=== PATIENT | female | born 1955 | race Caucasian/White ===

== ENCOUNTER 2021-01-09 06:30 | Day surgery (SDC) | payer MEDICARE, SELFPAY ==
[2020-12-27 13:52] VITALS: BMI 30.2
--- NOTE | 2021-01-08 17:35 | P.PNAN_ITS ---
Anes - Eval Pre Procedure Procedure: Operation Date: 01/09/21 08:00 Proposed Procedures p Esophagogastroduodenoscopy - Spike Ortiz MD Date/Time: 01/08/21 17:35 Pre Op Diagnosis: dysphagia Patient Data Age: 65 Gender: F Height: 1.6 m Weight: 77.5 kg Allergies Allergy/AdvReac Type Severity Reaction Status Date / Time codeine Allergy Unknown Itching Verified 12/27/20 13:46 Home Medications Medication Instructions Recorded Confirmed Type simvastatin 20 mg tablet 20 mg PO DAILY #90 tablet 05/17/19 12/27/20 Rx aspirin [Adult Low Dose Aspirin] 81 mg PO DAILY 12/27/20 12/27/20 History metoprolol succinate 50 mg PO DAILY 12/27/20 12/27/20 History omega-3 fatty acids [Fish Oil] 1 cap PO DAILY 12/27/20 12/27/20 History progesterone micronized 100 mg PO QAM 12/27/20 12/27/20 History [Prometrium] Patient hx anesthesia problems: none Family hx anesthesia problems: none [facility] Past Medical History Medical History (Updated 01/08/21 @ 17:36 by Mason Murillo DO) GERD (gastroesophageal reflux disease) Hyperlipidemia Hypertension Osteoarthritis Surgical History Surgical History (Updated 01/08/21 @ 17:36 by Mason Murillo DO) History of Social History Social History Smoking status: Former smoker Second hand tobacco smoke exposure: Yes Drinks per week: 10 Living arrangements: alone Spiritual care concerns: No Exam Day of Procedure 01/08/21 17:35
[2021-01-09 07:02] VITALS: BP 189/81; PULSE 76; RESP 20; TEMP 36.2; O2SAT 99; BMI 30.4
[2021-01-09] MEDS: LACTATED RINGERS 1,000 ML 150 ML IV CONT (07:34)
--- NOTE | 2021-01-09 07:42 | WPDANESEPPF ---
Anes - Initial Pre Proc Eval Procedure: Operation Date: 01/09/21 08:00 Proposed Procedures p Esophagogastroduodenoscopy - Spike Ortiz MD Date/Time: 01/09/21 07:42 Surgeon: Spike Ortiz MD Pre Op Diagnosis: dysphagia Patient Data Age: 65 Gender: F Height: 1.6 m Weight: 78 kg Last Vital Signs Temp 36.2 C L 01/09/21 07:02 Pulse 76 01/09/21 07:02 Resp 20 01/09/21 07:02 BP 189/81 H 01/09/21 07:02 Pulse Ox 99 01/09/21 07:02 Allergies Allergy/AdvReac Type Severity Reaction Status Date / Time codeine Allergy Unknown Itching Verified 01/09/21 06:58 Home Medications Medication Instructions Recorded Confirmed Type simvastatin 20 mg tablet 20 mg PO DAILY #90 tablet 05/17/19 01/09/21 Rx aspirin [Adult Low Dose Aspirin] 81 mg PO DAILY 12/27/20 01/09/21 History metoprolol succinate 50 mg PO DAILY 12/27/20 12/27/20 History omega-3 fatty acids [Fish Oil] 1 cap PO DAILY 12/27/20 01/09/21 History progesterone micronized 100 mg PO QAM 12/27/20 01/09/21 History [Prometrium] Patient hx anesthesia problems: none Family hx anesthesia problems: none [facility] Past Medical History Medical History GERD (gastroesophageal reflux disease) Hyperlipidemia Hypertension Osteoarthritis Surgical History Surgical History History of Social History Social History Smoking status: Former smoker Second hand tobacco smoke exposure: Yes Drinks per week: 10 Living arrangements: alone Spiritual care concerns: No Anes - Eval Final PreProcedure Day of Procedure 01/09/21 07:42 Patient weight: obese Heart: regular rate and rhythm Lungs: clear to auscultation Airway: Mallampati scale class II Neurological: alert and oriented Last oral intake: >/= 8 hours ASA classification: II Emergent: no Anesthetic plan: proceed Anesthesia type and monitoring: general GIVS and standard monitoring Informed Consent: The patient's anesthetic plan and its attendant risks and benefits were discussed with the patient/family/POA. Questions were solicited and answers provided to the satisfaction of the patient/family/POA.
--- NOTE | 2021-01-09 07:59 | PM.HPGS ---
History of Present Illness History of Present Illness Consent: Risks, benefits, and alternatives have been discussed and questions answered. Patient agrees to proceed with procedure. Chief complaint: dysphagia Narrative: Mirta Reyes is a 65 year old female with intermittent dysphagia to solids, never had egd and she is not taking ppi Review of Systems Constitutional: Constitutional: Denies headache(s) and Denies weakness Eyes: Eyes: Denies blurry vision ENT: Reports Normal hearing present, Denies headache(s) and Denies neck pain Cardiovascular: Cardiovascular: Denies chest pain and Denies dyspnea Respiratory: Respiratory: Denies dyspnea Gastrointestinal: Gastrointestinal: Reports no additional gastrointestinal complaints Genitourinary: Genitourinary: Denies dysuria Musculoskeletal: Musculoskeletal: Denies neck pain Integumentary/Breasts: Skin/Breast: Denies dry skin Neurologic: Reports Normal hearing present, Denies headache(s) and Denies weakness Psychiatric: Psychiatric: Denies anxiety Endocrine: Endocrine: Denies change in body appearance Hematologic/Lymphatic: Hematologic/Lymphatic: Denies easy bleeding Allergic/Immunologic: Allergic/Immunologic: Denies urticaria PMFSH Past Medical History Medical History (Updated 01/09/21 @ 08:00 by Spike Ortiz MD) Dysphagia GERD (gastroesophageal reflux disease) Hyperlipidemia Hypertension Osteoarthritis Surgical History Surgical History History of Social History Social History Smoking status: Former smoker Second hand tobacco smoke exposure: Yes Drinks per week: 10 Living arrangements: alone Spiritual care concerns: No Meds Home Medications and Allergies Home Medications Medication Instructions Recorded Confirmed Type simvastatin 20 mg tablet 20 mg PO DAILY #90 tablet 05/17/19 01/09/21 Rx aspirin [Adult Low Dose Aspirin] 81 mg PO DAILY 12/27/20 01/09/21 History metoprolol succinate 50 mg PO DAILY 12/27/20 12/27/20 History omega-3 fatty acids [Fish Oil] 1 cap PO DAILY 12/27/20 01/09/21 History progesterone micronized 100 mg PO QAM 12/27/20 01/09/21 History [Prometrium] Allergies Allergy/AdvReac Type Severity Reaction Status Date / Time codeine Allergy Unknown Itching Verified 01/09/21 06:58 Vital Signs Vital Signs - 24 hr 01/09/21 07:02 Temperature 97.2 F L Pulse Rate 76 Respiratory Rate 20 Blood Pressure 189/81 H Pulse Oximetry 99 Exam Const: General: comfortable and no acute distress HENMT: General nose exam: Normal nares present Eyes: General: appearance normal, both eyes and all related structures Neck: Neck: no JVD Resp: Auscultation: clear to auscultation bilaterally Cardio: Rate: regular rate Rhythm: regular rhythm GI: Inspection: non-distended GI Palp: Yes Soft to palpation Skin: General skin exam: normal color Neuro: General: gait normal Speech: normal speech Extrem: General: normal to inspection Psych: Mental Status: mental status grossly normal Assessment and Plan Assessment and plan (1) Dysphagia: Code(s): R13.10 - Dysphagia, unspecified Status: Acute Assessment and Plan: egd
[2021-01-09 08:18] VITALS: BP 189/81; PULSE 63; RESP 15; O2SAT 95
[2021-01-09 08:28] VITALS: BP 136/68; PULSE 60; RESP 13; O2SAT 95
[2021-01-09 08:38] VITALS: BP 144/78; PULSE 62; RESP 15; O2SAT 95
== END 2021-01-09 08:46 | disposition home or self-care (01) ==
PROVIDERS: PCP Nurse Practitioner Adult Health; Visit Provider Internal Medicine Gastroenterology
PROC: 0DJ08ZZ Inspection of Upper Intestinal Tract, Via Natural or Artificial Opening Endoscopic (ICD-10-PCS; CPT 43235; principal; 2021-01-09 08:00)
DX: K22.2 Esophageal obstruction (principal); K21.00 Gastro-esophageal reflux disease with esophagitis, without bleeding; K44.9 Diaphragmatic hernia without obstruction or gangrene; K29.50 Unspecified chronic gastritis without bleeding; I10 Essential (primary) hypertension; E78.5 Hyperlipidemia, unspecified; M19.90 Unspecified osteoarthritis, unspecified site; Z79.82 Long term (current) use of aspirin; Z87.891 Personal history of nicotine dependence
CPT/HCPCS: 43239; 43249; 87081; 88305; C1726; J7120

== ENCOUNTER 2021-06-05 08:33 | Outpatient (CLI) | payer MEDICARE, SELFPAY ==
--- NOTE | ~2021-06-05 | CT_ITS ---
EXAMINATION: CT diagnostic chest w con EXAM DATE: 06/05/2021 09:10 INDICATION: Pulmonary nodule. TECHNIQUE: Spiral CT of the chest following intravenous injection of 75 mL Omnipaque 350. Axial, cor onal and sagittal images of the chest were reviewed. Coronal maximum intensity pixel images of chest reviewed. The dose-length product (DLP) for this examination was 202.25 mGy-cm. The exposure was t ailored according to patient size (auto mA exposure control), and iterative reconstruction (ASIR) was used as additional dose reduction technique. Correlation is made to chest x-ray from 2003. FINDINGS: There is a rounded right middle lobe nodule measuring 1.5 cm without spiculations. Central location would make percutaneous biopsy challenging. Assuming there are no recent prior studies at [facility] for comparison, PET/CT recommended for nodules this size. Portion of the segmental bronchus distal to this is occluded. Otherwise the airway is well aerated. There are no pleural or p ericardial effusions. There is no mediastinal, hilar or axillary lymphadenopathy. There is no p neumothorax. Heart normal in size. There is mild coronary arterial calcification, arterial sclero sis. 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 Mild to moderate splenic flexure colonic diverticulos is. There is T11 hemangioma. There are no osteoblastic or osteolytic lesions identified. IMPRESSION: 1. Right middle lobe 1.5 cm nodule without spiculations; recommend PET/CT for further evaluation. If that is not obtained, a 3 month follow-up chest CT without contrast. 2. Mild emphysema. 3. Moderate hiatal hernia. 4. Splenic, renal artery aneurysms. 5. Colonic diverticulosis. Reviewed, dictated and finalized at location A. [facility] IMPRESSION: 1. Right middle lobe 1.5 cm nodule without spiculations; recommend PET/CT for further evaluation. If that is not obtained, a 3 month follow-up chest CT witho ut contrast. 2. Mild emphysema. 3. Moderate hiatal hernia. 4. Splenic, renal artery aneurysms. 5. Colonic diverticulosis.
[2021-06-05 09:04] LABS: Estimated Glomerular Filt Rate > 60
== END 2021-06-05 08:34 | disposition home or self-care (01) ==
PROVIDERS: PCP Nurse Practitioner Adult Health; Visit Provider Nurse Practitioner Adult Health
DX: R91.1 Solitary pulmonary nodule (principal); J43.9 Emphysema, unspecified; K44.9 Diaphragmatic hernia without obstruction or gangrene; K57.30 Diverticulosis of large intestine without perforation or abscess without bleeding
CPT/HCPCS: 71260; Q9967

== ENCOUNTER → 2022-06-24 09:16 | Outpatient (CLI) | payer MEDICARE, SELFPAY ==
--- NOTE | ~2022-06-24 | CT_ITS ---
CT Angiogram Abdomen with contrast. History: Renal artery aneurysm. Spiral CT of the abdomen was performed after the administration of intravenous contrast. 100 cc of Om nipaque 350 was administered intravenously without complication. Dose reduction technique was used on this scan by utilizing automated exposure control and iterative reconstruction technique. The dose-l ength product (DLP) was 721.01 mGy-cm. Findings: Scans through the lung bases are clear. Large hiatal hernia noted. There is a 1.2 cm aneurysm, saccular, arising from the left renal artery (axial images 57-60). There is partial thrombosis within the aneurysm sac. The liver, spleen, pancreas, gallbladder, adrenals and left kidney are within normal limits. Simple r ight renal cysts noted. No evidence of aortic aneurysm. No lymphadenopathy is seen. Visualized bowel loops are unremarkable. No ascites. 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 Large hiatal hernia. Reviewed, dictated and finalized at [facility]. 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 Large hiatal hernia.
== END ==
PROVIDERS: PCP Family Medicine; Visit Provider Internal Medicine Cardiovascular Disease
DX: I72.2 Aneurysm of renal artery (principal); K44.9 Diaphragmatic hernia without obstruction or gangrene
CPT/HCPCS: 74175; Q9967

== ENCOUNTER 2022-07-08 01:13 | Day surgery (SDC) | payer MEDICARE, SELFPAY ==
[2022-06-24 13:52] VITALS: BMI 29.2
[2022-07-08 07:09] VITALS: BP 152/88; PULSE 80; RESP 16; TEMP 36.2; O2SAT 100; BMI 29.8
[2022-07-08] MEDS: LACTATED RINGERS 1,000 ML 150 ML IV CONT (07:21)
[2022-07-08 07:23] LABS: Glucose Point of Care 112 mg/dl (65-105)
--- NOTE | 2022-07-08 08:01 | WPDANESEPPF ---
Anes - Initial Pre Proc Eval Procedure: Operation Date: 07/08/22 08:30 Proposed Procedures p Screening Colonoscopy - Spike Ortiz MD Date/Time: 07/08/22 08:01 Surgeon: Spike Ortiz MD Pre Op Diagnosis: neoplasm screening Patient Data Age: 66 Gender: F Height: 1.6 m Weight: 76.4 kg Last Vital Signs Temp 97.1 F L 07/08/22 07:09 Pulse 80 07/08/22 07:09 Resp 16 07/08/22 07:09 BP 152/88 H 07/08/22 07:09 Pulse Ox 100 07/08/22 07:09 O2 Del Method Room Air 07/08/22 07:09 Allergies Allergy/AdvReac Type Severity Reaction Status Date / Time codeine AdvReac Unknown Itching Verified 07/08/22 07:08 Home Medications Medication Instructions Recorded Confirmed Type aspirin 81 mg tablet 81 mg PO DAILY 12/27/20 07/08/22 History metoprolol succinate 50 mg 50 mg PO DAILY 12/27/20 07/08/22 History tablet,extended release 24 hr progesterone micronized 100 mg 100 mg PO QAM 21 days #63 caps 09/27/21 07/08/22 Rx capsule calcium 600 mg capsule 600 mg PO DAILY 06/24/22 07/08/22 History diclofenac sodium 75 mg 75 mg PO DAILY 06/24/22 07/08/22 History tablet,delayed release famotidine 20 mg tablet 20 mg PO DAILY 06/24/22 07/08/22 History glucosamine-chondroitin 250 mg-200 2 tablet PO TID 06/24/22 07/08/22 History mg tablet (Osteo Bi-Flex) ibuprofen-diphenhydramine citrate 1 cap PO HS 06/24/22 07/08/22 History 200 mg-38 mg tablet (Ibuprofen PM) losartan 50 mg-hydrochlorothiazide 1 tablet PO DAILY 06/24/22 07/08/22 History 12.5 mg tablet metformin 500 mg tablet,extended 500 mg PO DAILY 06/24/22 07/08/22 History release 24 hr multivitamin 1 tablet PO DAILY 06/24/22 07/08/22 History simvastatin 40 mg tablet 40 mg PO DAILY 06/24/22 07/08/22 History Laboratory Tests 07/08/22 07:19 POC Capillary Glucose 112 mg/dl H mg/dl (65-105) Patient hx anesthesia problems: none Family hx anesthesia problems: none Results Review: All pre-operative results and documents have been reviewed as part of the pre-operative evaluation. [facility] Past Medical History Medical History (Updated 06/25/21 @ 09:32 by Yamilka Lockett MA) Colon cancer screening Dysphagia Esophageal ring GERD (gastroesophageal reflux disease) Hyperlipidemia Hypertension Osteoarthritis Surgical History Surgical History History of Social History Social History Years smoked: 20 Smoking status: Former smoker Tobacco type: cigarettes Second hand tobacco smoke exposure: Yes Alcohol intake: current Drinks per week: 7 Substance use type: does not use Living arrangements: with family Spiritual care concerns: No Anes - Eval Final PreProcedure Day of Procedure 07/08/22 08:01 Patient weight: obese Heart: regular rate and rhythm Lungs: clear to auscultation Airway: Mallampati scale class III Neurological: alert and oriented Last oral intake: >/= 8 hours ASA classification: III Emergent: no Anesthetic plan: proceed Anesthesia type and monitoring: general GIVS and standard monitoring Results Review: All pre-operative results and documents have been reviewed as part of the pre-operative evaluation. Informed Consent: The patient's anesthetic plan and its attendant risks and benefits were discussed with the patient/family/POA. Questions were solicited and answers provided to the satisfaction of the patient/family/POA.
--- NOTE | 2022-07-08 08:13 | PM.HPGS ---
History of Present Illness History of Present Illness Consent: Risks, benefits, and alternatives have been discussed and questions answered. Patient agrees to proceed with procedure. Chief complaint: neoplasm screening Narrative: Mirta Reyes is a 66 year old female here for screening colonoscopy, last one more than 5 years ago and she has history of polyp Review of Systems Constitutional: Constitutional: Denies headache(s) and Denies weakness Eyes: Eyes: Denies blurry vision ENT: Reports Normal hearing present, Denies headache(s) and Denies neck pain Cardiovascular: Cardiovascular: Denies chest pain and Denies dyspnea Respiratory: Respiratory: Denies dyspnea Gastrointestinal: Gastrointestinal: Reports no additional gastrointestinal complaints Genitourinary: Genitourinary: Denies dysuria Musculoskeletal: Musculoskeletal: Denies neck pain Integumentary/Breasts: Skin/Breast: Denies dry skin Neurologic: Reports Normal hearing present, Denies headache(s) and Denies weakness Psychiatric: Psychiatric: Denies anxiety Endocrine: Endocrine: Denies change in body appearance Hematologic/Lymphatic: Hematologic/Lymphatic: Denies easy bleeding Allergic/Immunologic: Allergic/Immunologic: Denies urticaria PMF Past Medical History Medical History (Updated 06/25/21 @ 09:32 by Yamilka Lockett MA) Colon cancer screening Dysphagia Esophageal ring GERD (gastroesophageal reflux disease) Hyperlipidemia Hypertension Osteoarthritis Surgical History Surgical History History of Social History Social History Years smoked: 20 Smoking status: Former smoker Tobacco type: cigarettes Second hand tobacco smoke exposure: Yes Alcohol intake: current Drinks per week: 7 Substance use type: does not use Living arrangements: with family Spiritual care concerns: No Meds Home Medications and Allergies Home Medications Medication Instructions Recorded Confirmed Type aspirin 81 mg tablet 81 mg PO DAILY 12/27/20 07/08/22 History metoprolol succinate 50 mg 50 mg PO DAILY 12/27/20 07/08/22 History tablet,extended release 24 hr progesterone micronized 100 mg 100 mg PO QAM 21 days #63 caps 09/27/21 07/08/22 Rx capsule calcium 600 mg capsule 600 mg PO DAILY 06/24/22 07/08/22 History diclofenac sodium 75 mg 75 mg PO DAILY 06/24/22 07/08/22 History tablet,delayed release famotidine 20 mg tablet 20 mg PO DAILY 06/24/22 07/08/22 History glucosamine-chondroitin 250 mg-200 2 tablet PO TID 06/24/22 07/08/22 History mg tablet (Osteo Bi-Flex) ibuprofen-diphenhydramine citrate 1 cap PO HS 06/24/22 07/08/22 History 200 mg-38 mg tablet (Ibuprofen PM) losartan 50 mg-hydrochlorothiazide 1 tablet PO DAILY 06/24/22 07/08/22 History 12.5 mg tablet metformin 500 mg tablet,extended 500 mg PO DAILY 06/24/22 07/08/22 History release 24 hr multivitamin 1 tablet PO DAILY 06/24/22 07/08/22 History simvastatin 40 mg tablet 40 mg PO DAILY 06/24/22 07/08/22 History Allergies Allergy/AdvReac Type Severity Reaction Status Date / Time codeine AdvReac Unknown Itching Verified 07/08/22 07:08 Vital Signs Vital Signs - 24 hr 07/08/22 07:09 Temperature 97.1 F L Pulse Rate 80 Respiratory Rate 16 Blood Pressure 152/88 H Pulse Oximetry 100 Oxygen Delivery Room Air Exam Const: General: comfortable and no acute distress HENMT: Face/Nose/Sinus: Normal nares present Eyes: General: appearance normal, both eyes and all related structures Neck: Neck: no JVD Resp: Auscultation: clear to auscultation bilaterally Cardio: Rate: regular rate Rhythm: regular rhythm GI: Inspection: non-distended GI Palp: Yes Soft to palpation Skin: General skin exam: normal color Neuro: General: gait normal Speech: normal speech Extrem: General: normal to inspection Psych: Men
[2022-07-08 08:34] VITALS: BP 115/65; PULSE 63; RESP 22; O2SAT 91
[2022-07-08 08:44] VITALS: BP 131/94; PULSE 61; RESP 19; O2SAT 94
[2022-07-08 08:52] VITALS: BP 120/101; PULSE 58; RESP 14; O2SAT 98
== END 2022-07-08 08:59 | disposition home or self-care (01) ==
PROVIDERS: PCP Family Medicine; Visit Provider Internal Medicine Gastroenterology
PROC: 0DJD8ZZ Inspection of Lower Intestinal Tract, Via Natural or Artificial Opening Endoscopic (ICD-10-PCS; CPT 45378; principal; 2022-07-08 08:30)
DX: Z12.11 Encounter for screening for malignant neoplasm of colon (principal); D12.3 Benign neoplasm of transverse colon; K57.30 Diverticulosis of large intestine without perforation or abscess without bleeding; K64.8 Other hemorrhoids; K64.4 Residual hemorrhoidal skin tags; I10 Essential (primary) hypertension; E78.5 Hyperlipidemia, unspecified; K21.9 Gastro-esophageal reflux disease without esophagitis; Z79.84 Long term (current) use of oral hypoglycemic drugs; Z79.82 Long term (current) use of aspirin; Z87.891 Personal history of nicotine dependence; E66.9 Obesity, unspecified; Z68.29 Body mass index [BMI] 29.0-29.9, adult
CPT/HCPCS: 45385; 82948; 88305; J2704; J7120

== ENCOUNTER 2023-12-21 14:55 | Outpatient (CLI) | payer MEDICARE, SELFPAY ==
--- NOTE | ~2023-12-21 | XR_ITS ---
XR chest 2V 12/21/2023 15:13 Indication: Cough Procedure: 2 view chest Comparison: 05/24/2004 Findings: Right basilar atelectasis/scarring. Large hiatal hernia. Heart size normal. No focal pneumo jeanmarie, pleural effusion, edema or pneumothorax Impression: 1: Right basilar atelectasis/scarring. 2: Large hiatal hernia. Reviewed, dictated and finalized at location B. Impression: 1: Right basilar atelectasis/scarring. 2: Large hiatal hernia.
== END 2023-12-21 14:56 | disposition home or self-care (01) ==
PROVIDERS: PCP Nurse Practitioner Adult Health; Visit Provider Nurse Practitioner Adult Health
DX: R91.8 Other nonspecific abnormal finding of lung field (principal); K44.9 Diaphragmatic hernia without obstruction or gangrene
CPT/HCPCS: 71046

== ENCOUNTER 2023-12-26 10:00 | Outpatient (CLI) | payer MEDICARE, SELFPAY ==
--- NOTE | ~2023-12-26 | CT_ITS ---
EXAMINATION:CT diagnostic chest wo con DATE: 12/26/2023 10:31 INDICATION: Diaphragmatic hernia without obstruction. Chronic cough. TECHNIQUE: Computed tomography (CT) of the chest was performed without intravenous contrast. Automate d exposure control and iterative reconstruction technique were employed. The dose-length product (DLP ) was 154.42 mGy-cm. COMPARISON: Chest CT 06/05/2021 FINDINGS: There is mild scarring at the lung apices. There is mild atelectasis bilaterally. There is a 16 mm nodule in right middle lobe containing fat, consistent with a hamartoma, stable from 06/05/2021 . There is a stable 4 mm nodule in left lower lobe, likely benign. No pleural effusion. The heart siz e is normal. No pericardial effusion. There are coronary artery calcifications. There is a large slid ing hiatal hernia. 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 There is severe mi dthoracic spondylosis. There is a hemangioma in T11 vertebral body. IMPRESSION: 1. Large sliding hiatal hernia. Reviewed, dictated and finalized at location A.
== END 2023-12-26 10:01 | disposition home or self-care (01) ==
LOC: ANHIMG 10:01
PROVIDERS: PCP Nurse Practitioner Adult Health; Visit Provider Nurse Practitioner Adult Health
DX: R05.3 Chronic cough (principal); K44.9 Diaphragmatic hernia without obstruction or gangrene
CPT/HCPCS: 71250

== ENCOUNTER 2024-08-10 12:43 | Outpatient (CLI) | payer MEDICARE, SELFPAY ==
--- NOTE | ~2024-08-10 | US_ITS ---
US pelvic complete w TV Ordering provider: Serjio Shi MD History: . R10.2 - Pelvic and perineal pain . Comparison: None. Technique: Transabdominal and endovaginal ultrasound of the pelvis (Doppler ultrasound interrogation techniques used as needed for this exam.) FINDINGS: CERVIX: Normal. UTERUS: Measures 7.2x 4.9x 3.9 cm in length which is within normal limits and is anteverted. 2.3 cm endometrial calcification is seen suggestive of fibroid versus wall calcifications. ENDOMETRIUM: Normal in thickness measuring 13 mm. No endometrial masses, cysts or fluid. CUL DE SAC: No free fluid. RIGHT OVARY: Not seen. LEFT OVARY: Not seen. ADNEXA: Normal. No mass. IMPRESSION: Thickened endometrium. Further evaluation advised. Calcifications which may indicate fibroid versus m yometrial calcification. Nonvisualized ovaries. Reviewed, dictated and finalized at location A. IMPRESSION: Thickened endometrium. Further evaluation advised. Calcifications which may ind icate fibroid versus myometrial calcification. Nonvisualized ovaries.
== END 2024-08-10 12:44 | disposition home or self-care (01) ==
LOC: GOSHIMG 12:43
PROVIDERS: PCP Family Medicine; Visit Provider Obstetrics & Gynecology
DX: R93.89 Abnormal findings on diagnostic imaging of other specified body structures (principal); N85.8 Other specified noninflammatory disorders of uterus; R10.2 Pelvic and perineal pain
CPT/HCPCS: 76830; 76856

== ENCOUNTER 2024-08-15 09:16 | Outpatient (CLI) | payer MEDICARE, SELFPAY ==
[2024-08-15 09:44] LABS: Basophils Percent Auto 0.6 % (0.2-1.2); Eosinophils Absolute Auto 0.1 K/mm3 (0-0.3); Eosinophils Percent Auto 1.3 % (0-4.4); Immature Granulocyte Absolute 0.03 K/mm3 (0.00-0.031); Immature Granulocyte Percent A 0.6 % (0-0.5); Lymphocytes Absolute Auto 1.28 K/mm3 (0.9-3.2); Lymphocytes Percent Auto 24.4 % (18.3-44.2); Mean Corpuscular HGB Conc 33.3 g/dl (32-36); Mean Corpuscular Hemoglobin 28.9 pg (26-34); Mean Corpuscular Volume 86.8 fl (80-100); Mean Platelet Volume 9.1 fl (7.4-10.4); Monocytes Absolute Auto 0.5 K/mm3 (0.1-0.6); Monocytes Percent Auto 8.8 % (2.6-8.5); Neutrophils Absolute Auto 3.4 K/mm3 (1.3-6.7); Neutrophils Percent Auto 64.3 % (45.5-73.1); Platelet Count Result 295 k/mm3 (150-375); Red Blood Count 4.84 M/mm3 (4.2-5.4); Red Cell Distribution Width 13.9 % (11.5-14.5); White Blood Count 5.2 K/mm3 (4.5-10.0)
[2024-08-15 10:03] LABS: Alanine Aminotransferase 26 U/L (6-35); Albumin Level 4.8 g/dL (3.5-5.1); Alkaline Phosphatase 70 U/L (38-126); Anion Gap 11 mmol/L (4-12); Aspartate Amino Transferase 21 U/L (14-36); Bilirubin,Total 0.7 mg/dL (0.2-1.3); Blood Urea Nitrogen 18 mg/dL (7-17); Calcium 9.9 mg/dL (8.4-10.2); Carbon Dioxide 29 mmol/L (22-30); Chloride 99 mmol/L (98-107); Cholesterol 165 mg/dL (0-200); Estimated Glomerular Filt Rate > 60; Glucose 98 mg/dL (65-110); HDL Direct 46 mg/dL; Potassium 3.9 mmol/L (3.4-5.0); Sodium 139 mmol/L (137-145); Triglycerides 183 mg/dL (<150)
--- OUTSIDE RECORDS SUMMARY | 2024-08-15 10:06 | XMS_ITS | Referral Summary ---
Author Organization [facility] [employer] Address [address] [place] [address] Care Team Providers Care Ranch Hand Supervisor Name Role Phone Justin Dior CARRINGTON-PULP ROLLER Primary Care Provider + Source Comments [facility],non-owned Affiliates and Associated Physician Practices is amultiple site organization consisting of ambulatory clinics and hospital sitesin [place], [place], [place] and [place]. This disclosure is being madepursuant to the Care Everywhere program and may not contain all information available regarding this patient. Last updated 18.[facility] [employer] Allergies Active Allergy Reactions Criticality Noted Date Comments Codeine 03/29/2008 Atorvastatin Calcium Myalgias 12/25/2008 Medications * Be aware that medications may not be up to date on this document. Alwaysverify current medications with the patient. Medication Sig Dispensed Refills Start Date End Date Status simvastatin (ZOCOR) 20 MG tabletIndications:H yperlipidemia Take 1 Tab by mouth at bedtime. 30 Tab 0 04/16/2011 Active METOPROLOL SUCCINATE ER PO Active Estradiol (EVAMIST TD) Active albuterol HFA (PROAIR HFA) 108 (90 BASE) MCG/ACT inhalerIndications: Acute bronchitis, unspecified organism Inhale 2 Puffs by mouth every 4 hours as needed for Shortness of Breath, Wheezing or Cough 1 Inhaler 1 04/10/2016 Active fluticasone propionate (FLONASE) 50 MCG/ACT nasal sprayIndications:Ac roopa bronchitis, unspecified organism Kendall 1 Kendall into each nostril 2 times daily 1 Bottle 04/10/2016 Active benzonatate (TESSALON) 100 MG capsuleIndications: Acute bronchitis, unspecified organism Take 1 Cap by mouth 3 times daily as needed for Cough 20 Cap 04/10/2016 Active Additional Information Patient not taking.Reported on 06/25/2016 Active Problems Problem Noted Date Diagnosed Date Hyperlipidemia 03/29/2008 Pulmonary nodule 03/29/2008 Immunizations Name Administration Dates Next Due INFLUENZA VACCINE, TRIV. (AF LURIA, FLUZONE TRIVALENT; 6MO+) (IIV3) 04/01/2010,04/07/2008 DT 12/13/2003 INFLUENZA VACCINE, QUADR. (F LUZONE; FLULAVAL; FLUARIX; AFLURIA QUADRIVALENT; 6MO+), 0.5 ML (IIV4) 04/03/2017 TDAP (7yrs+) 04/07/2008 Social History Tobacco Use Types Packs/Day Years Used Date Smoking Tobacco: Never Alcohol Use Standard Drinks/Week Comments Yes 5.8 (1 standard drink = 0.6 oz p ure alcohol) Sex and Gender Information Value Date Recorded Sex Assigned at Not on file Gender Identity Not on file Sexual Orientation Not on file Last Filed Vital Signs Vital Sign Reading Time Taken Comments Blood Pressure 114/78 06/25/2016 9:24 AM SUPERINTENDENT GENERATING PLANT Pulse 89 06/25/2016 9:24 AM SUPERINTENDENT GENERATING PLANT Temperature 37.4 C (99.4 F) 06/25/2016 9:24 AM SUPERINTENDENT GENERATING PLANT Respiratory Rate 16 06/25/2016 9:24 AM SUPERINTENDENT GENERATING PLANT Oxygen Saturation 96% 06/25/2016 9:24 AM SUPERINTENDENT GENERATING PLANT Inhaled Oxygen Concentration - - Weight 74.8 kg (165 lb) 06/25/2016 9:24 AM SUPERINTENDENT GENERATING PLANT Height 160 cm (5' 3 ) 06/25/2016 9:24 AM SUPERINTENDENT GENERATING PLANT Body Mass Index 29.23 06/25/2016 9:24 AM SUPERINTENDENT GENERATING PLANT Plan of Treatment Not on file Procedures Procedure Name Priority Date/Time Associated Diagnosis Comments GENERAL HEALTH PANEL Routine 04/05/2010 8:55 AM CDT Family history of early CAD Family history of diabetes mellitus (DM) from Last 3 Months or Most Recently Relevant to Health Maintenance Results * (ABNORMAL) GENERAL HEALTH PANEL (04/05/2010 8:55 AM CDT) Glucose 96 65 - 99 mg/dL [facility] ACCOUNT BILL BUN 18 5 - 26 mg/dL [facility] ACCOUNT BILL Creatinine 0.86 0.57 - 1.00 mg/dL [facility] ACCOUNT BILL eGFR by MDRD >59 >59 mL/min/1. 73 [facility] ACCOUNT BILL eGFR by MDRD >59 >59 mL/min/1. 73 [facility] ACCOUNT BILL Comment: Note: Persistent reduction for 3 months or more in an eGFR <60 mL/min/1.73 m2 defines CKD. Patients with eGFR values >/=60 mL/min/1.73 m2 may also have CKD if evidence of persistent proteinuria is present. Additional information may be found at [email or web address]. BUN/Creatinine Ratio 21 8 - 27 [facility] ACCOUNT BILL Sodium 140 135 - 145 mmol/L [facility] ACCOUNT BILL Potassium 4.1 3.5 - 5.2 mmol/L [facility] ACCOUNT BILL Chloride 102 97 - 108 mmol/L [facility] ACCOUNT BILL CO2 23 20 - 32 mmol/L [facility] ACCOUNT BILL Calcium 9.5 8.7 - 10.2 mg/dL [facility] ACCOUNT BILL Protein Total 7.0 6.0 - 8.5 g/dL [facility] ACCOUNT BILL Albumin 4.4 3.5 - 5.5 g/dL [facility] ACCOUNT BILL Globulin Total 2.6 1.5 - 4.5 g/dL [facility] ACCOUNT BILL Albumin/Globulin Ratio 1.7 1.1 - 2.5 [facility] ACCOUNT BILL Bilirubin Total 0.6 0.0 - 1.2 mg/dL [facility] ACCOUNT BILL Alkaline Phosphatase 59 25 - 150 IU/L [facility] ACCOUNT BILL AST 22 0 - 40 IU/L [facility] ACCOUNT BILL ALT 26 0 - 40 IU/L [facility] ACCOUNT BILL TSH 2.140 0.450 - 4.500 uIU/mL [facility] ACCOUNT BILL WBC 3.8(L) 4.0 - 10.5 x10E3/uL [facility] ACCOUNT BILL RBC 5.04 3.80 - 5.10 x10E6/uL [facility] ACCOUNT BILL Hemoglobin 14.5 11.5 - 15.0 g/dL [facility] ACCOUNT BILL Hematocrit 44.5(H) 34.0 - 44.0 % [facility] ACCOUNT BILL MCV 88 80 - 98 fL [facility] ACCOUNT BILL MCH 28.8 27.0 - 34.0 pg [facility] ACCOUNT BILL MCHC 32.6 32.0 - 36.0 g/dL [facility] ACCOUNT BILL RDW 12.8 11.7 - 15.0 % [facility] ACCOUNT BILL Platelet Count 280 140 - 415 x10E3/uL [facility] ACCOUNT BILL Granulocytes % 49 40 - 74 % [facility] ACCOUNT BILL Lymphocytes % 40 14 - 46 % [facility] Monocytes % 8 4 - 13 % [facility] ACCOUNT BILL Eosinophils % 2 0 - 7 % [facility] ACCOUNT B[facility] Basophils % 1 0 - 3 % [facility] ACCOUNT BILL Immature Cells CANCELED [facility] ACCOUNT BILL Comment:Result canceled by henok meehan ancillary Granulocytes Absolute 1.8 1.8 - 7.8 x10E3/uL [facility] ACCOUNT BILL Lymphocytes Absolute 1.5 0.7 - 4.5 x10E3/uL [facility] ACCOUNT BILL Monocytes Absolute 0.3 0.1 - 1.0 x10E3/uL [facility] ACCOUNT BILL Eosinophils Absolute 0.1 0.0 - 0.4 x10E3/uL [facility] ACCOUNT BILL Basophils Absolute 0.0 0.0 - 0.2 x10E3/uL [facility] ACCOUNT BILL Immature Granulocytes 0 0 - 1 % [facility] ACCOUNT BILL Immature Granulocytes Absolute 0.0 0.0 - 0.1 x10E3/uL [facility] ACCOUNT BILL nRBC CANCELED [facility] ACCOUNT BILL Comment:Result canceled by henok meehan ancillary Comment Hematology CANCELED [facility] ACCOUNT BILL Comment:Result canceled by henok meehan ancillary BLOOD SPECIMEN / Unknown 04/05/2010 8:55 AM CDT 04/05/2010 5:15 PM CDT Narrative Resulting Agency Comment [facility] [address] [phone] Blas Lyons MD LAB - CHEMISTRY OR DERABLES [facility] ACCOUNT BILL from Last 3 Months or Most Recently Relevant to Health Maintenance Care Teams Ranch Hand Supervisor Relationship Specialty Start Date End Date Dior Anderson APRN-PONCHO [address] [phone] PCP - General 01/28/21
--- OUTSIDE RECORDS SUMMARY | 2024-08-15 10:06 | XMS_ITS | Clinical Summary ---
Author Organization [facility] [employer] Address [address] [place] [address] Care Team Providers Care Tong Setter Name Role Phone Justin Dior CARRINGTON-SALES AND MANAGEMENT TRAINEE Primary Care Provider + Source Comments [facility],non-owned Affiliates and Associated Physician Practices is amultiple site organization consisting of ambulatory clinics and hospital sitesin [place], [place] and [place]. This disclosure is being madepursuant to the Care Everywhere program and may not contain all information available regarding this patient. Last updated 18.[facility] [employer] Allergies Active Allergy Reactions Criticality Noted Date [...] MCG/ACT nasal sprayIndications:Ac roopa bronchitis, unspecified organism Castlewood 1 [place] into each nostril 2 times daily 1 [...] 0.5 ML (IIV4) 04/03/2017 TDAP (7yrs+) 04/07/2008 Family History Medical History Relation Name Comments CAD (Coronary Artery Disease) Brother CAD (Coronary Artery Disease) Father age 52 Cancer Mother primary unknown Diabetes Sister Relation Name Status Comments Brother Father Mother Sister Social History Tobacco Use Types Packs/Day Years [...] Comments Blood Pressure 114/78 06/25/2016 9:24 AM LEAF FAT SCRAPER Pulse 89 06/25/2016 9:24 AM LEAF FAT SCRAPER Temperature 37.4 C (99.4 F) 06/25/2016 9:24 AM LEAF FAT SCRAPER Respiratory Rate 16 06/25/2016 9:24 AM LEAF FAT SCRAPER Oxygen Saturation 96% 06/25/2016 9:24 AM LEAF FAT SCRAPER Inhaled Oxygen Concentration - - Weight 74.8 kg (165 lb) 06/25/2016 9:24 AM LEAF FAT SCRAPER Height 160 cm (5' 3 ) 06/25/2016 9:24 AM LEAF FAT SCRAPER Body Mass Index 29.23 06/25/2016 9:24 AM LEAF FAT SCRAPER Plan of Treatment Health Maintenance Due Date Last Done Comments BONE DENSITY TESTING 1955 COLOGUARD (AGES 45-75) - COLON CA SCREENING 1955 COLONOSCOPY - COLON CA SCREENING 1955 CT COLONOGRAPHY - COLON CA SCREENING 1955 FIT - COLON CA SCREENING 1955 FLEX SIG - COLON CA SCREENING 1955 HEPATITIS C SCREENING 08/02/1973 PNEUMOCOCCAL VACCINE 50+ (1 of 1 - PCV) 08/06/2005 ZOSTER VACCINE (1 of 2) 08/06/2005 COLON MONITORING 04/01/2011 04/01/2006 (Pre viously completed) Colorectal Cancer Screening 04/01/2011 MAMMOGRAM 12/31/2011 12/30/2009, 12/30/2009 SCREENING FOR DIABETES 04/03/2017 0, 04/13/2009, 04/17/2008, Additional history exists DTAP/TDAP/TD VACCINES (3 - Td or Tdap) 04/07/2018 04/07/2008, 12/13/2003 COVID-19 VACCINE ( - 2023- season) 2024 INFLUENZA VACCINE (#1) 2024 7, 04/01/2010, 04/07/2008 DEPRESSION SCREENING 06/01/2024 MEDICARE AWV CALENDAR YEAR 2024 Respiratory Syncytial Virus (RSV) Vaccine Pt: or over 60 yrs (1 - 1-dose 75+ series) 08/06/2030 HEPATITIS B VACCINE Aged Out No longe r eligible based on patient's age to complete this topic HIB VACCINE Aged Out No longer eligi ble based on patient's age to complete this topic HPV VACCINE Aged Out No longer eligi ble based on patient's age to complete this topic MENINGOCOCCAL (Group B) VACCINE SHARED DECISION-MAKING Aged Out No longer eligible based on patient's age to complete this topic MENINGOCOCCAL GROUPS A/C/Y/W VACCINE Aged Out No longer eligible based on patient's age to complete this topic Procedures Procedure Name Priority Date/Time Associated Diagnosis [...] PM CDT Narrative Resulting Agency Comment [facility] [address] [phone] Blas Lyons MD LAB - CHEMISTRY OR DERABLES [facility] ACCOUNT BILL from Last 3 Months or Most Recently Relevant to Health Maintenance Care Teams Tong Setter Relationship Specialty Start Date End Date Dior Anderson APRN-PONCHO [address] [phone] PCP - General 01/28/21
--- OUTSIDE RECORDS SUMMARY | 2024-08-15 10:06 | XMS_ITS | Referral Summary ---
Author Organization [facility] Address [address] [place] [address] Phone Care Team Providers Care Pottery Decorator Name Role Phone Mark Page MD Primary Care Provider Encounters Date Type Department Care Team Description 08/05/2024 Telephone [facility] Primary Care at [address] [place] [phone] Mark Page MD Appointment 08/04/2024 10:00 AM LEAD GENERATION REPRESENTATIVE Office Visit [facility] Primary Care at [address] [place] [phone] Shyann Sullivan NP Establishing care with new doctor, encounter for (Primary Dx); Preventative health care; Primary hypertension; Hyperlipidemia, unspecified hyperlipidemia type; Prediabetes; Vitamin D deficiency; Personal history of tobacco use; Overweight with body mass index (BMI) of 28 to 28.9 in adult; Screening for thyroid disorder from Last 3 Months Allergies Active Allergy Reactions Criticality Noted Date Comments Atorvastatin Calcium Muscle pain Medium 12/25/2008 Codeine Other (See comments) 03/29/2008 Medications metoprolol XL (TOPROL-XL) 50 mg 24 hr tablet take 1 tablet by oral route every day 0 0 5 Active calcium carbonate-jasson min D3 (CALCIUM 500 + D) 1,250mg (500mg elemental) - 200 units per tablet 0 0 6 Active acyclovir (ZOVIRAX) 400 mg tablet take 1 tablet (400MG) by oral route every day 90 2 3 Active aspirin (ASPIRIN LOW DOSE) 81 mg tablet take 1 tablet by oral route every day 0 0 3 Active albuterol HFA (PROVENTIL HFA,VENTOLIN HFA,PROAIR HFA) 90 mcg/actuation inhaler Inhale 2 puffs every 4 (four) hours as needed [address] (VOLTAREN) 75 mg EC tablet Take 1 tablet (75 mg total) by mouth 2 (two) times a day 5 Active famotidine (PEPCID) 20 mg tablet Take 1 tablet (20 mg total) by mouth nightly at bedtime Active fluticasone propionate (FLONASE) 50 mcg/actuation nasal spray Administer 1 spray into affected nostril(s) 2 (two) times a day 6 Active losartan-hydro CHLOROthiazide (HYZAAR) 50-12.5 mg per tablet Take 1 tablet by mouth daily Active metFORMIN XR (GLUCOPHAGE XR) 500 mg 24 hr tablet Take 1 tablet (500 mg total) by mouth daily Active simethicone (MYLICON) 125 mg chewable tablet 1 tablet (125 mg total) 4 Active traZODone (DESYREL) 50 mg tablet Take 1 tablet (50 mg total) by mouth nightly Active simvastatin (ZOCOR) 20 mg tablet take 1 tablet by oral route every day in the evening 0 0 4 08/05/19 25 Discontinu ed(Therapy completed) progesterone (PROMETRIUM) 100 mg capsule TAKE 1 CAPSULE BY MOUTH DAYS 1-25 OF EACH MONTH 25 capsule 8 08/05/19 25 Discontinu ed(Therapy completed) benzonatate (TESSALON) 100 mg capsule Take 1 capsule (100 mg total) by mouth 3 (three) times a day as needed 6 08/05/19 25 Discontinu ed(Therapy completed) metFORMIN (GLUCOPHAGE) 500 mg tablet 0 03/06/20 25 Discontinu ed(Alterna te therapy) oseltamivir (TAMIFLU) 75 mg capsule Take 1 capsule (75 mg total) by mouth daily 08/05/19 25 Discontinu ed(Therapy completed) Active Problems Problem Noted Date Diagnosed Date Overweight with body mass in dex (BMI) of 28 to 28.9 in adult 08/05/2024 Assessment & Plan (08/05/2024 6:05 AM LEAD GENERATION REPRESENTATIVE): Wt Readings from Last 3 Encounters: 08/04/24 74 kg (163 lb 3.2 oz) 05/15/17 76.2 kg (168 lb) 05/13/16 77.1 kg (170 lb) Body mass index is 28.92 kg/m . -Stable, at goal of <30 bmi -Discussed recommendations for exercise at least 30 minutes moderate to vigorous exercise as tolerated most days of the week. (minimum 150 minutes weekly) -Discussed importance of well-balanced diet Preventative health care 08/04/2024 Assessment & Plan (08/05/2024 6:02 AM LEAD GENERATION REPRESENTATIVE): - New or chronic worsening conditions: no significant acute issues on this visit - Mental health: no significant psychiatric/mental health conditions affecting her day to day functioning - Dental health: Up to date with regular dental care and cleaning. Discussed importance of regular tooth brushing, flossing, and dental visits. - Nutrition: Stressed importance of moderation in sodium/caffeine intake, saturated fat and cholesterol, caloric balance, sufficient intake of fresh fruits, vegetables - Exercise: Stressed the importance of regular exercise - Immunizations: Age and sex appropriate immunizations reviewed and offered - Cervical Cancer screening: No longer indicated - Breast Cancer screening: Recommended, order placed - Colon cancer screening: Recommended, referral placed - Lung cancer screening: Not indicated at this time - Bone desnity/osteoporosis screening: Recommended, order placed - control: Postmenopausal Prediabetes 08/04/2024 Assessment & Plan (08/05/2024 6:01 AM LEAD GENERATION REPRESENTATIVE): -chronic, controlled -patient currently takes metformin 500 mg daily -reiterated importance of diabetic foot and eye exams -will recheck lab work -continue current treatment plan Vitamin D deficiency 08/04/2024 Assessment & Plan (08/05/2024 6:01 AM LEAD GENERATION REPRESENTATIVE): -chronic, controlled -patient currently takes vitamin D3 supplement -will recheck lab value -continue current treatment plan 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 Hypertension 06/14/2021 Assessment & Plan (08/05/2024 5:59 AM LEAD GENERATION REPRESENTATIVE): BP Readings from Last 3 Encounters: 08/04/24 135/85 05/15/17 130/72 05/13/16 120/86 -chronic, at goal of <140/90 -currently taking metoprolol 50 mg, losartan-hydrochlorothiazide 50-12.5 mg daily -patient reports checking blood pressure regularly at home -encourage patient to continue low-sodium diet -continue current treatment plan Lung mass 06/14/2021 Personal history of tobacco use 06/14/2021 Assessment & Plan (08/05/2024 6:04 AM LEAD GENERATION REPRESENTATIVE): Tobacco Use: Medium Risk (08/04/2024) Patient History Smoking Tobacco Use: Former Smokeless Tobacco Use: Never Passive Exposure: Not on file -stable, at goal -patient reports ongoing smoking cessation -patient educated on benefits of continued smoking cessation -continue current treatment plan -total time spent on tobacco cessation education 3 minutes Hyperlipidemia 03/29/2008 Assessment & Plan (08/05/2024 5:58 AM LEAD GENERATION REPRESENTATIVE): -chronic, controlled -Previously prescribed simvastatin 20 mg -Discussed importance of well-balanced diet -will recheck lab values -continue current treatment plan Pulmonary nodule 03/29/2008 Immunizations Immunization Administration Dates Next Due DT 12/13/2003 Influenza Virus Vaccine Trivalent Mdv 02/01/2024 Influenza, Quadrivalent, Spl it, Preservative Free, Intramuscular 03/29/2019,03/05/2018,04/03/2017,03/28 Influenza, Trivalent, IM (MDV) 04/01/2010,2007 Influenza, Trivalent, Preser vative Free, Intramuscular 03/03/2016 Moderna SARS-CoV-2 Monovalen t Vaccination (12+ YRS) 07/24/2020,06/26/2020 [employer] Sars-Cov-2 Bivalent V accination (12+ YRS) 02/01/2024 Tdap 04/07/2008 ZOSTER LIVE 03/03/2016 ZOSTER Recombinant 06/20/2019 Social History Tobacco Use Types Packs/Day Years Used Date Smoking Tobacco: Former Smokeless Tobacco: Never Alcohol Use Standard Drinks/Week Comments Yes 0 (1 standard drink = 0.6 oz pur e alcohol) PHQ-2 Answer Date Recorded PHQ-2 Total Score (If total score is 3 or more points, staff should administer the PHQ-9) 0 08/04/2024 Comments No Sex and Gender Information Value Date Recorded Sex Assigned at Not on file Legal Sex Female 2:08 AM LEAD GENERATION REPRESENTATIVE Gender Identity Not on file Sexual Orientation Not on file Last Filed Vital Signs Vital Sign Reading Time Taken Comments Blood Pressure 135/85 08/04/2024 10:41 AM LEAD GENERATION REPRESENTATIVE typical blood pressure reading at home Pulse 67 08/04/2024 10:15 AM LEAD GENERATION REPRESENTATIVE Temperature 36.5 C (97.7 F) 08/04/2024 10:15 AM LEAD GENERATION REPRESENTATIVE Respiratory Rate 16 08/04/2024 10:1 5 AM LEAD GENERATION REPRESENTATIVE Oxygen Saturation 96% 08/04/2024 10: 15 AM LEAD GENERATION REPRESENTATIVE Inhaled Oxygen Concentration - - Weight 74 kg (163 lb 3.2 oz) 08/04/2024 10:15 AM LEAD GENERATION REPRESENTATIVE Height 160 cm (5' 2.99 ) 08/04/2024 10: 15 AM LEAD GENERATION REPRESENTATIVE Body Mass Index 28.92 08/04/2024 10:15 AM LEAD GENERATION REPRESENTATIVE Plan of Treatment Not on file Procedures Procedure Name Priority Date/Time Associated Diagnosis Comments SCREENING MAMMOGRAM BILATERAL W SANTIAGO Schedule Routine, Read Routine (OP Routine) 09/19/2020 1:32 PM CDT Encounter for screening mammogram for malignant neoplasm of breast DEXA AXIAL SKELETON BONE DENSITY 1 OR MORE SITES Schedule Routine, Read Routine (OP Routine) 07/15/2019 11:08 AM LEAD GENERATION REPRESENTATIVE Screening for osteoporosis from Last 3 Months or Most Recently Relevant to Health Maintenance Results * Screening Mammogram Bilateral W Santiago (09/19/2020 1:32 PM CDT) Anatomical Region Laterality Modality Breast Bilateral Mammography Narrative 09/19/2020 2:30 PM CDT Screening Mammogram Bilateral W Santiago: 09/19/20 Clinical: Encounter for screening mammogram for malignant neoplasm of breast. Prior Study Comparisons: Comparison was made to the prior available relevant studies at the time of interpretation. Findings: Bilateral No significant masses, malignant type calcifications, skin thickening, nipple retraction, or significant lymphadenopathy is noted in either breast. The CAD review showed no significant findings. The breasts have scattered areas of fibroglandular density. The patient will be notified of results by letter. Impression: BI-RADS ATLAS category (overall): 1 Negative There is no mammographic evidence of malignancy. Routine Screening Mammogram in 1 Yr is recommended for bilateral Overall Assessment: 1 - Negative us Self Screening Mammogram IMG MAMMO PROCEDURES Fi nal Result * Dexa Axial Skeleton Bone Density 1 or 2 Site (07/15/2019 11:08 AM LEAD GENERATION REPRESENTATIVE) Anatomical Region Laterality Modality Body N/A Digital Radiogra phy 07/15/2019 11:1 5 AM LEAD GENERATION REPRESENTATIVE Impressions 07/15/2019 11:16 AM LEAD GENERATION REPRESENTATIVE Low bone mass (osteopenia) which depending on the clinical circumstances may result in a moderate increased risk of fragility fracture. If followup is to be done, for technical reasons, it should be performed on this same machine. Electronically signed by: Vinny Cordero M.D. Narrative 07/15/2019 11:16 AM LEAD GENERATION REPRESENTATIVE EXAM: Bone mineral density [facility]. HISTORY: Postmenopausal. Hormone replacement therapy. Calcium and vitamin D supplementation. Assess for osteoporosis. DXA BMD was done at [facility] on a [employer] CI. Precision testing at this site has resulted in a least significant change of: Lumbar spine 0.031 g/sq cm Total Hip 0.026 g/sq cm Femoral neck 0.041 g/sq cm BMD L1-L4 is 0.848 g/sq cm corresponding to a T score of -1.8. BMD left femoral neck is 0.752 g/sq cm corresponding to a T score of -0.9. BMD total left hip is 0.934 g/sq cm corresponding to a T score of -0.1. COMPARISON: None. Procedure Note Vinny Cordero MD - 07/15/2019 EXAM: Bone mineral density [facility]. HISTORY: Postmenopausal. Hormone replacement therapy. Calcium and vitamin D supplementation. Assess for osteoporosis. DXA BMD was done at [facility] on a [employer] CI. Precision testing at this site has resulted in a least significant change of: Lumbar spine 0.031 g/sq cm Total Hip 0.026 g/sq cm Femoral neck 0.041 g/sq cm BMD L1-L4 is 0.848 g/sq cm corresponding to a T score of -1.8. BMD left femoral neck is 0.752 g/sq cm corresponding to a T score of -0.9. BMD total left hip is 0.934 g/sq cm corresponding to a T score of -0.1. COMPARISON: None. IMPRESSION: Low bone mass (osteopenia) which depending on the clinical circumstances may result in a moderate increased risk of fragility fracture. If followup is to be done, for technical reasons, it should be performed on this same machine. Electronically signed by: Vinny Cordero M.D. Mariposa Glover MD IMG DXA PROCEDURES Final R esult from Last 3 Months or Most Recently Relevant to Health Maintenance [place] [address] MDCR HMO REF Member Subscriber Plan / Payer (Ef fective 2020-Present) Name:Mirta Reyes Relation to Subscriber:Self Name:Mirta Reyes Payer ID:[id number] (NAIC) Type:[facility] MEDICARE Address: [place] [phone] MEDICARE SOLUTIONS [place] [phone] Care Teams Pottery Decorator Relationship Specialty Start Date End Date Mark Page MD [address] DESMOND Oliveros [address] [address] PCP - General Family Medicine 08/04/24
--- OUTSIDE RECORDS SUMMARY | 2024-08-15 10:07 | XMS_ITS | Continuity of Care Document ---
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 [address] [place] [address], [id number], . tel:[phone] Family History Family Member Type Diagnosis Age At Onset No Information Payers Payer name Insurance type Covered democrat ID Authoriza tion(s) No Information Social History Type Description Quantity Date Captured Comments Sex Female Smoking Status No Information Chief Complaint And Reason For Visit No Information Reason For Referral Reason For Referral No Information History Of Present Illness Encounter Date Complaint History Of Prese nt Illness No Information Functional Status Date Functional Assessmen t No Information Instructions Date Instruction Additional Infor mation No Information Assessments Type Assessment Date No Information Patient Care Teams Name Effective Dates (start - stop) Status Members No Information
--- OUTSIDE RECORDS SUMMARY | 2024-08-15 10:07 | XMS_ITS | CONTINUITY OF CARE DOCUMENT ---
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 07/2021 active 06/14 Gildardo Mireles MD Tobacco abuse, quit active Gildardo Cool Lung mass, unspecified active Gildardo lovett MD Hypertension active Gildardo Mireles MD Preoperative cardiovascular examination active Quang Marcus MD ENCOUNTERS Date Type Provider Location Encounter Diag nosis - In-person encounter Office Visit Jayro Martinez DO [facility] - In-person encounter Office Visit Quang Marcus MD [facility] Preoperative cardiovascular examination - In-person encounter Office Visit Gildardo Mireles MD [facility] - In-person encounter Office Visit Gildardo Mireles MD [facility] Left renal artery aneurysm, 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 - In-person encounter Office Visit Gildardo Mireles MD [facility] Cardiology examinationHyperlipidemiaLeft renal artery aneurysm, 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Tobacco abuse, quitLung mass, unspecifiedHypertension VITAL SIGNS Date Observation Value Provider Body Mass Index (Ratio) 29.40 kg/m2 Prad eep Drew Martinez DO pulse rate 74 /min Kandi Courtney weight E&M 166 [lb_av] Kandi Courtney respiratory rate E&M 12 /min Kandi Sherwin height E&M 63 [in_i] Kandi Courtney Body Mass Index (Ratio) 29.76 kg/m2 Juan Marcus MD blood pressure, cuff size regular Ke earnesti Wen blood pressure, diastolic 96 mm[Hg] Mikhail tinocoi Wen blood pressure, systolic 142 mm[Hg] Dianelys Carver oxygen saturation, oximetry 99 % Iliana Carver respiratory rate E&M 12 /min Iliana moon pulse rate 72 /min Iliana Yanes [facility] weight E&M 168 [lb_av] Iliana Yanes [facility] height E&M 63 [in_i] Iliana Farzana [facility] Body Mass Index (Ratio) 31.07 kg/m2 Zulema Cornell blood pressure, diastolic 95 mm[Hg] Sunshine [facility] blood pressure, systolic 159 mm[Hg] Juliane [facility]Logic blood pressure, cuff size regular Dariana Cisneros blood pressure, diastolic 95 mm[Hg] Dariana Cisneros blood pressure, systolic 159 mm[Hg] Nicolette Cisneros oxygen saturation, oximetry 96 % Deysi Cisneros pulse rate 67 /min Deysi Cisneros respiratory rate E&M 18 /min Deysi Cisneros weight E&M 175.4 [lb_av] Deysi Cisneros height E&M 63 [in_i] Deysi Cisneros Body Mass Index (Ratio) 31.53 kg/m2 Indra Mireles MD blood pressure, diastolic 105 mm[Hg] Li [facility] blood pressure, systolic 164 mm[Hg] Juliane kLogic blood pressure, diastolic 105 mm[Hg] Ca therine Lawrence blood pressure, systolic 164 mm[Hg] Cat herine Lawrence oxygen saturation, oximetry 97 % Liana Lawrence respiratory rate E&M 14 /min Catheri ne Lawrence pulse rate 64 /min Liana Lawrence weight E&M 178 [lb_av] Liana Osbaldo blood pressure, cuff size regular Ca therine Lawrence height E&M 63 [in_i] Liana Lawrence Body Mass Index (Ratio) 31.53 kg/m2 Jose Villegas blood pressure, cuff size large Mi alvin Jamison blood pressure, diastolic 100 mm[Hg] Mi alvin Jamison blood pressure, systolic 160 mm[Hg] Sage helle Jamison pulse rate 88 /min Fanny cool oxygen saturation, oximetry 97 % Fanny Zapata respiratory rate E&M 18 /min Mirlande Zapata height E&M 63 [in_i] Fanny cool weight E&M 178 [lb_av] Fanny Taya cool ALLERGIES No Known Drug Allergies RESULTS Date Observation Value Provider Reference Range Interpretation Location prothrombin time (patient) 10.2 s [facility] 9.1-12.0 6 international normalized ratio (INR) 0.9 [facility] 0.9-1.2 6 lipoprotein, beta, serum, point, quantitative, calculated 114 mg/dL [facility] 0-99 High 6 HDL cholesterol, serum 49 mg/dL [facility] >39 6 triglyceride, serum, random 174 mg/dL [facility] 0-149 High 6 cholesterol, serum 193 mg/dL [facility] 998-043 6617/01/2 6 calcium, serum 10.1 mg/dL [facility] 8.7-10.3 6 carbon dioxide, venous blood 26 mmol/L [facility] 20-29 6 chloride, serum 99 mmol/L [facility] 96-106 6 potassium, serum 4.3 mmol/L [facility] 3.5-5.2 6 sodium, serum 139 mmol/L [facility] 578-278 1684/01/2 6 urea nitrogen/creatinin e ratio, serum 25 [facility] 12-28 6 eGFR if 94 mL/min/{1. 73_m2} [facility] >59 6 eGFR if not 81 mL/min/{1. 73_m2} [facility] >59 6 creatinine, serum 0.77 mg/dL [facility] 0.57-1.00 6 urea nitrogen, blood 19 mg/dL [facility] 8-27 6 blood glucose, random 96 mg/dL [facility] 65-99 6 basophil count, absolute 0.0 x10E3/uL [facility] 0.0-0.2 6 Eosinophil Absolute Count 0.1 X10E3/UL [facility] 0.0-0.4 6 monocyte count, blood, automated 0.5 X10E3/UL [facility] 0.1-0.9 6 lymphocyte count, blood, automated 1.5 X10E3/UL [facility] 0.7-3.1 6 Absolute Neutrophils 4.7 X10E3/UL [facility] 1.4-7.0 6 basophils as percent of blood leukocytes 0 % [facility] Not Estab. 6 eosinophils as percent of blood leukocytes 2 % [facility] Not Estab. 6 monocytes as percent of blood leukocytes 8 % [facility] Not Estab. 6 lymphocytes as percent of blood leukocytes 22 % [facility] Not Estab. 6 neutrophils as percent of blood leukocytes 68 % [facility] Not Estab. 6 platelet count 302 X10E3/UL [facility] 927-227 5512/01/2 6 red blood cell distribution width 12.1 % [facility] 11.7-15.4 6 mean corpuscular hemoglobin concentration, RBC 32.2 G/DL [facility] 31.5-35.7 6 mean corpuscular hemoglobin, RBC 28.7 pg [facility] 26.6-33.0 6 mean corpuscular volume, RBC 89 fL [facility] 79-97 6 hematocrit, blood 45.3 % [facility] 34.0-46.6 6 hemoglobin, blood 14.6 g/dL [facility] 11.1-15.9 6 erythrocyte (RBC) count 5.09 X10E6/UL [facility] 3.77-5.28 6 leukocyte count, blood 6.9 X10E3/UL [facility] 3.4-10.8 HISTORY OF MEDICATION USE Medication Status Instructions Dates Provider Indications Com ments metformin (Glucophage XR) 500 mg tablet extended release 24 hr active TAKE 1 TABLET BY MOUTH EVERY DAY WITH BREAKFAST Kandi Courtney losartan-hydrochlorot hiazide 50-12.5 mg tablet active TAKE 1 TABLET BY MOUTH EVERY DAY Kandi Courtney simvastatin 40 mg tablet active Take 1 tablet by mouth every evening Kandi Courtney trazodone 50 mg tablet active Take 1 tablet by mouth every night Kandi Courtney ASPIRIN 81 active Take one tablet by mouth daily Kandi Courtney simvastatin 40 mg tablet completed TAKE 1 TABLET DAILY (DOSE DECREASED) - Deysi Mead NP methylprednisolone 4 mg tablets,dose pack completed - Fanny Zapata simvastatin 20 mg tablet completed - Fanny Zapata progesterone micronized 100 mg capsule completed - Kandi Courtney albuterol sulfate 90 mcg/actuation HFA aerosol inhaler completed - Fanny Zapata lisinopril 5 mg tablet completed - Kandi Courtney ofloxacin 0.3% drops completed - Fanny Zapata famotidine 20 mg tablet active TAKE 1 TABLET TWICE DAILY Kandi Courtney acyclovir 400 mg tablet completed - Fanny Zapata metoprolol succinate 50 mg tablet extended release 24 hr active TAKE 1 TABLET BY MOUTH EVERY DAY Kandi Courtney SOCIAL HISTORY Date Observation Value Provider smoking status Never smoker Quang Marcus MD social history E&M S moking History: Christa newton has never smoked. Gildardo Mireles MD social history reviewed E&M revi ewed - no changes required Gildardo Mireles MD smoking status Never smoker Deysi Cisneros number of grandchildren Gildardo Mireles MD social history E&M S moking History: Christa newton is a former smoker. Gildardo Mireles MD social history reviewed E&M revi ewed - no changes required Gildardo Mireles MD smoking status Former smoker Liana Jhoan is social history E&M S moking History: Christa newton is a former smoker. Gildardo Mireles MD social history reviewed E&M revi ewed - no changes required Gildardo Mireles MD smoking status Former smoker Gildardo guzman MD INSURANCE PROVIDERS Payer name Policy type / Coverage type Marlene red green party ID AARP MEDICARE ADVANTAGE HMO-POS HMO [id number] ADVANCE DIRECTIVES Name Date DISCUSSED - NO DECISION MADE TREATMENT PLAN Date Name Performer [id number],C,B P elevated today at 159/95. Advised reduced sodium intake and routine monitoring of the blood pressure. We aim for less than 130/80. Gildardo Mireles MD [id number],S, F ollowed by CT chest yearly. Gildardo Mireles MD [id number],C, S /p recent renal and celiac angiogram showing small left renal artery aneurysm, 10-20% stenosis of the mid right renal artery, and normal celiac artery angiogram with a tortuous splenic artery but no aneurysm was noted. Recent CT showed 1.2 cm aneurysm. We will continue to monitor with a yearly CT of the abdomen. Gildardo Mireles MD [id number],S, O n simvastatin. Recent LDL 114. Gildardo Mireles MD [id number],S, S /p recent renal and celiac angiogram showing small left renal artery aneurysm, 10-20% stenosis of the mid right renal artery, and normal celiac artery angiogram with a tortuous splenic artery but no aneurysm was noted. We will repeat her renal CTA in 1 year. Gildardo Mireles MD [id number],C, B P today 164/105. Advised routine home BP monitoring and dietary sodium restriction. Gildardo Mireles MD [id number],S, O n simvastatin. Recent LDL 114. Gildardo Mireles MD [id number],S, S /p recent renal and celiac angiogram showing small left renal artery aneurysm, 10-20% stenosis of the mid right renal artery, and normal celiac artery angiogram with a tortuous splenic artery but no aneurysm was noted. Gildardo Mireles MD [id number],S,O n simvastatin. Will obtain a recent lipid panel from your office. Prateek Mccormickhenok [id number],C,Followed by [place] [facility] chest yearly. Gildardo Mireles MD [id number],C,A ngiogram to evaluate the aneurysm explained. Gildardo Mireles MD [id number],C, I ncidental finding of left renal artery aneurysm on CT scan. No symptoms. Will arrange a renal angiogram to evaluate the size of aneurysm. Details of angiogram discussed with patient. Risk and benefits explained.to patient and .Agreeable to proceed. Gildardo Mireles MD [id number],[place], T he blood pressure medications were recently increased by her primary care. Will monitor BP and adjust antihypertensives. Gildardo Mireles MD [id number],[place], W ill discuss this with interventionalist and vascular surgeon. Gildardo Mireles MD [id number],[place], I f the patient is asymptomatic, will discuss this with interventionalist and vascular surgeon. Gildardo Mireles MD [id number],[place], T he blood pressure medications were recently increased by her primary care. This will be followed. Gildardo Mireles MD Cardiology:1.2cm in 23 1 .1cm in 24. henok foss follows. Jayro Martinez DO Cardiology: T he following medications were removed from the medication list: Lisinopril 5 Mg Tablet (Lisinopril) Her updated medication list for this problem includes: Metoprolol Succinate 50 Mg Tablet Extended Release 24 Hr (Metoprolol succinate) ..... Take 1 tablet by mouth every day Losartan-hydrochlorothiazide 50-12.5 Mg Tablet (Losartan-hydrochlorothiazide) ..... Take 1 tablet by mouth every day Prior BP: 142/96 (06/16/2023) Labs Reviewed: C reat: 0.77 (06/26/2021) C hol: 193 (06/26/2021) HDL: 49 (06/26/2021) LDL: 114 (06/26/2021) T (06/26/2021) Jayro Martinez DO Cardiology: H er updated medication list for this problem includes: Simvastatin 40 Mg Tablet (Simvastatin) ..... Take 1 tablet by mouth every evening Jayro Martinez DO Cardiology:had r kne e done in june 24. P atient is at acceptable risk for L knee replacement S he is low risk Jayro Martinez DO Cardiology Quang Marcus MD Cardiology:Patient i s at acceptable risk for R TKR. S he is low risk Quang Marcus MD Cardiology: H er updated medication list for this problem includes: Lisinopril 5 Mg Tablet (Lisinopril) Metoprolol Succinate 50 Mg Tablet Extended Release 24 Hr (Metoprolol succinate) B P today: 142/96 P rior BP: 159/95 (07/14/2022) Labs Reviewed: C reat: 0.77 (06/26/2021) C hol: 193 (06/26/2021) HDL: 49 (06/26/2021) LDL: 114 (06/26/2021) T (06/26/2021) Quang Marcus MD Cardiology:BP elevat ed today at 159/95. Advised reduced sodium intake and routine monitoring of the blood pressure. We aim for less than 130/80. Gildardo Mireles MD Cardiology: F ollowed by CT chest yearly. Gildardo Mireles MD Cardiology: S /p recent renal and celiac angiogram showing small left renal artery aneurysm, 10-20% stenosis of the mid right renal artery, and normal celiac artery angiogram with a tortuous splenic artery but no aneurysm was noted. Recent CT showed 1.2 cm aneurysm. We will continue to monitor with a yearly CT of the abdomen. Gildardo Mireles MD Cardiology: O n simvastatin. Recent LDL 114. Gildardo Mireles MD Cardiology: S /p recent renal and celiac angiogram showing small left renal artery aneurysm, 10-20% stenosis of the mid right renal artery, and normal celiac artery angiogram with a tortuous splenic artery but no aneurysm was noted. We will repeat her renal CTA in 1 year. Gildardo Mireles MD Cardiology: B P today 164/105. Advised routine home BP monitoring and dietary sodium restriction. Gildardo Mireles MD Cardiology: O n simvastatin. Recent LDL 114. Gildardo Mireles MD Cardiology: S /p recent renal and celiac angiogram showing small left renal artery aneurysm, 10-20% stenosis of the mid right renal artery, and normal celiac artery angiogram with a tortuous splenic artery but no aneurysm was noted. Gildardo Mireles MD Cardiology:On simvas tatin. Will obtain a recent lipid panel from your office. Prateek Villegas Cardiology:Followed by CT chest yearly. Gildardo Mireles MD Cardiology:Angiogram to evaluate the aneurysm explained. Gildardo Mireles MD Cardiology: I ncidental finding of left renal artery aneurysm on CT scan. No symptoms. Will arrange a renal angiogram to evaluate the size of aneurysm. Details of angiogram discussed with patient. Risk and benefits explained.to patient and .Agreeable to proceed. Gildardo Mireles MD Cardiology: T he blood pressure medications were recently increased by her primary care. Will monitor BP and adjust antihypertensives. Gildardo Mireles MD Cardiology: W ill discuss this with interventionalist and vascular surgeon. Gildardo Mireles MD Cardiology: I f the patient is asymptomatic, will discuss this with interventionalist and vascular surgeon. Gildardo Mireles MD Cardiology: T he blood pressure medications were recently increased by her primary care. This will be followed. Gildardo Mireles MD Date Name CT Abdomen with cont rast CT Angio Renal (abdo men) Renal Angio - [facility] HISTORY OF PROCEDURES Procedure Date Procedure Name Provider Procedure Notes S tatus EKG Jayro Martinez DO completed EKG Quang Marcus MD completed EKG Gildardo Mireles MD complet ed EKG Gildardo Mireles MD complet ed
--- OUTSIDE RECORDS SUMMARY | 2024-08-15 10:07 | XMS_ITS | Patient Health Summary ---
Author Organization [facility] Address [address] [place] [address] Care Team Providers Care Product Marketing Consultant Name Role Phone Dior Anderson APRN-HR RECRUITER Primary Care Provider + Note from [facility],non-owned Affiliates and Associated Physician Practices is amultiple site organization consisting of ambulatory clinics and hospital sitesin [place], [place], [place] and [place]. This disclosure is being madepursuant to the Care Everywhere program and may not contain all information available regarding this patient. Last updated 18.[facility] Allergies * Codeine * Atorvastatin Calcium(Myalgias) Medications * Be aware that medications may not be up to date on this document. Alwaysverify current medications with the patient. * simvastatin (ZOCOR) 20 MG tablet(Started 04/16/2011) Take 1 Tab by mouth at bedtime. * METOPROLOL SUCCINATE ER PO * Estradiol (EVAMIST TD) * albuterol HFA (PROAIR HFA) 108 (90 BASE) MCG/ACT inhaler(Started 04/10/2016) Inhale 2 Puffs by mouth every 4 hours as needed for Shortness of Breath, Wheezing or Cough 1 refill remaining * fluticasone propionate (FLONASE) 50 MCG/ACT nasal spray(Started 04/10/2016) Jackson 1 Jackson into each nostril 2 times daily * benzonatate (TESSALON) 100 MG capsule(Started 04/10/2016) Take 1 Cap by mouth 3 times daily as needed for Cough Active Problems Problem Noted Date Diagnosed Date Hyperlipidemia 03/29/2008 Pulmonary nodule 03/29/2008 Immunizations * INFLUENZA VACCINE, TRIV. (AFLURIA, FLUZONE TRIVALENT; 6MO+) (IIV3)(Given 04/01/2010, 04/07/2008) * DT(Given 12/13/2003) * INFLUENZA VACCINE, QUADR. (FLUZONE; FLULAVAL; FLUARIX; AFLURIA QUADRIVALENT; 6MO+), 0.5 ML (IIV4)(Given 04/03/2017) * TDAP (7yrs+)(Given 04/07/2008) Social History Tobacco Use Types Packs/Day Years [...] Comments Blood Pressure 114/78 06/25/2016 9:24 AM PACKAGE DYER Pulse 89 06/25/2016 9:24 AM PACKAGE DYER Temperature 37.4 C (99.4 F) 06/25/2016 9:24 AM PACKAGE DYER Respiratory Rate 16 06/25/2016 9:24 AM PACKAGE DYER Oxygen Saturation 96% 06/25/2016 9:24 AM PACKAGE DYER Inhaled Oxygen Concentration - - Weight 74.8 kg (165 lb) 06/25/2016 9:24 AM PACKAGE DYER Height 160 cm (5' 3 ) 06/25/2016 9:24 AM PACKAGE DYER Body Mass Index 29.23 06/25/2016 9:24 AM PACKAGE DYER Procedures * INFLUENZA A+B - POINT OF CARE (AMB)(Performed 06/25/2016) Performed for Viral upper respiratory tract infection * HEPATIC FUNCTION PANEL(Performed 10/21/2010) Performed for Hyperlipidemia * LIPID PROFILE(Performed 10/21/2010) Performed for Hyperlipidemia * LIPID PROFILE W TCHOL/HDL(Performed 07/05/2010) Performed for Hyperlipidemia * HEPATIC FUNCTION PANEL(Performed 07/05/2010) Performed for Hyperlipidemia * VITAMIN D 25-HYDROXY(Performed 04/05/2010) Performed for LBP (low back pain) * GENERAL HEALTH PANEL(Performed 04/05/2010) Performed for Family history of early CAD, Family history of diabetes mellitus (DM) * LIPID PROFILE(Performed 04/05/2010) Performed for Family history of early CAD * CT CHEST WO CONTRAST(Performed 04/01/2010) Performed for Pulmonary nodules * LIPID PROFILE(Performed 06/15/2009) * HEPATIC FUNCTION PANEL(Performed 06/15/2009) * VITAMIN D 25-HYDROXY(Performed 04/13/2009) * COMPREHENSIVE METABOLIC PANEL(Performed 04/13/2009) * CT CHEST WO CONTRAST(Performed 03/30/2009) Performed for Abn Findings-Lung Field * LDL CHOLESTEROL DIRECT(Performed 08/03/2008) Performed for Hyperlipidemia, Encounter for Long-Term (Current) Use of Other Medications * LIPID PROFILE(Performed 08/03/2008) Performed for Hyperlipidemia, Encounter for Long-Term (Current) Use of Other Medications * HEPATIC FUNCTION PANEL(Performed 08/03/2008) Performed for Hyperlipidemia, Encounter for Long-Term (Current) Use of Other Medications * CO INJ DOBUTAMINE HCL/250 MG(Performed 04/21/2008) Performed for Chest Discomfort * CO THER PROPH/DX NJX IV PUSH 1ST SBST/DRUG(Performed 04/21/2008) Performed for Chest Discomfort * CO PLACE NEEDLE IN VEIN(Performed 04/21/2008) Performed for Chest Discomfort * CO STRESS TTE W/ INTERP/REPORT(Performed 04/21/2008) Performed for Chest Discomfort * CO CARDIAC STRESS TST,COMPLETE(Performed 04/21/2008) Performed for Chest Discomfort * C-REACTIVE PROTEIN(Performed 04/17/2008) Performed for Pulmonary Nodules, Hyperlipidemia * VITAMIN D 25-HYDROXY(Performed 04/17/2008) Performed for Preventative Health Care * TSH(Performed 04/17/2008) Performed for Preventative Health Care * CBC W AUTO DIFFERENTIAL(Performed 04/17/2008) Performed for Preventative Health Care * COMPREHENSIVE METABOLIC PANEL(Performed 04/17/2008) Performed for Chest Discomfort * LDL CHOLESTEROL DIRECT(Performed 04/17/2008) Performed for Family History of Ischemic Heart Disease * LIPID PROFILE(Performed 04/17/2008) Performed for Family History of Ischemic Heart Disease * CO ELECTROCARDIOGRAM, COMPLETE(Performed 04/07/2008) Performed for Chest Discomfort * EKG 12-LEAD(Performed 04/07/2008) * CT CHEST WO CONTRAST(Performed 02/15/2008) Performed for Abn Findings-Lung Field * CT CHEST WO CONTRAST(Performed 08/20/2007) Performed for Abn Findings-Lung Field * CT CHEST WO CONTRAST(Performed 05/27/2007) Performed for Abn Findings-Lung Field * CT CHEST W CONTRAST(Performed 03/20/2007) Performed for Other Lung Disease NEC * CT ABDOMEN PELVIS W CONTRAST(Performed 03/11/2007) Performed for Abdominal Pain, Unspecified Site * CULTURE URINE(Performed 03/06/2007) * BASIC METABOLIC PANEL (CALCIUM TOTAL)(Performed 03/05/2007) Results * INFLUENZA A+B - POINT OF CARE (AMB) (06/25/2016) Influenza A Antigen Rapid Negative Negative Influenza B Antigen Rapid Negative Negative Influenza Internal Control present NEGATIVE - POSITIVE Influenza Lot Number [id number] Influenza Expiration Date Other NASOPHARYNGEAL SWAB / Unknown 06/25/2016 Robbie Rodriguez PATTERN CLERK-HR RECRUITER LAB - POINT OF CARE ORDERABLES * HEPATIC FUNCTION PANEL (10/21/2010 9:21 AM CDT) Only the most recent of4 resultswithin the time period is included. Pathologist [facility] Protein Total 7.0 6.0 - 8.5 g/dL [facility] ACCOUNT BILL Albumin 4.4 3.5 - 5.5 g/dL [facility] ACCOUNT BILL Bilirubin Total 0.5 0.0 - 1.2 mg/dL [facility] ACCOUNT BILL Bilirubin Direct 0.14 0.00 - 0.40 mg/dL [facility] ACCOUNT BILL Alkaline Phosphatase 52 25 - 150 IU/L [facility] ACCOUNT BILL AST 21 0 - 40 IU/L [facility] ACCOUNT BILL ALT 23 0 - 40 IU/L [facility] ACCOUNT BILL BLOOD SPECIMEN / Unknown 10/21/2010 9:21 AM CDT 10/21/2010 12:36 PM CDT Narrative Resulting Agency Comment [facility] [address] [phone] Dayron Berry MD LAB - CHEMISTRY OR DERABLES [facility] ACCOUNT BILL * LIPID PROFILE (LIPID PANEL) (10/21/2010 9:19 AM CDT) Only the most recent of5 resultswithin the time period is included. Cholesterol 163 100 - 199 mg/dL [facility] ACCOUNT BILL Triglycerides 123 0 - 149 mg/dL [facility] ACCOUNT BILL HDL Cholesterol 54 >39 mg/dL [facility] ACCOUNT BILL Comment: According to ATP-III Guidelines, HDL-C >59 mg/dL is considered a negative risk factor for CHD. VLDL Calculated 25 5 - 40 mg/dL [facility] ACCOUNT BILL LDL Calculated 84 0 - 99 mg/dL [facility] ACCOUNT BILL BLOOD SPECIMEN / Unknown 10/21/2010 9:19 AM CDT 10/21/2010 12:36 PM CDT Narrative Resulting Agency Comment [facility] [address] [phone] Dayron Berry MD LAB - CHEMISTRY OR DERABLES Performing Organization Address City/[facility]/ZIP Co de Phone Number [facility] ACCOUNT BILL * LIPID PROFILE W TCHOL/HDL (PO REF LAB) (07/05/2010 9:13 AM PACKAGE DYER) Cholesterol 145 100 - 199 mg/dL [facility] ACCOUNT BILL Triglycerides 109 0 - 149 mg/dL [facility] ACCOUNT BILL HDL Cholesterol 47 >39 mg/dL [facility] ACCOUNT BILL Comment: According to ATP-III Guidelines, HDL-C >59 mg/dL is considered a negative risk factor for CHD. VLDL Calculated 22 5 - 40 mg/dL [facility] ACCOUNT BILL LDL Calculated 76 0 - 99 mg/dL [facility] ACCOUNT BILL Cholesterol/HDL Ratio 3.1 0.0 - 4.4 ratio units [facility] ACCOUNT BILL BLOOD SPECIMEN / Unknown 07/05/2010 9:13 AM PACKAGE DYER 07/05/2010 5:08 PM PACKAGE DYER Narrative Resulting Agency Comment [facility] [address] [phone] Dayron Berry MD LAB - CHEMISTRY OR DERABLES [facility] ACCOUNT BILL * (ABNORMAL) GENERAL HEALTH PANEL (04/05/2010 8:55 [...] [facility] ACCOUNT BILL Comment:Result canceled by t he ancillary Granulocytes Absolute 1.8 1.8 - 7.8 [...] CANCELED [facility] ACCOUNT BILL Comment:Result canceled by t he ancillary Comment Hematology CANCELED [facility] ACCOUNT BILL Comment:Result canceled by t he ancillary BLOOD SPECIMEN / Unknown 04/05/2010 8:55 AM CDT 04/05/2010 5:15 PM CDT Narrative Resulting Agency Comment [facility] [address] [phone] Dayron Berry MD LAB - CHEMISTRY OR DERABLES [facility] ACCOUNT BILL * VITAMIN D 25-HYDROXY (04/05/2010 8:55 AM CDT) Only the most recent of3 resultswithin the time period is included. Vitamin D, 25 Hydroxy 42.1 32.0 - 100.0 ng/mL [facility] ACCOUNT BILL Comment: Recent studies consider the lower limit of 32.0 ng/mL to be a threshold for optimal health. Marcus IBRAHIM. J Nutr. 2005 Jul;135(2):317-22. BLOOD SPECIMEN / Unknown 04/05/2010 8:55 AM CDT 04/05/2010 5:15 PM CDT Narrative Resulting Agency Comment [facility] [place] [address] [facility] [phone] Dayron Berry MD LAB - CHEMISTRY OR DERABLES [facility] ACCOUNT BILL * CT CHEST NON CONTRAST (04/01/2010 12:39 PM CDT) Only the most recent of5 resultswithin the time period is included. Anatomical Region Laterality Modality Chest Computed Tomogra phy 04/01/2010 3:23 PM CDT Impressions 04/01/2010 3:34 PM CDT STABLE PULMONARY NODULES OVER A TWO-YEAR DURATION ARE DEMONSTRATED. THEY ARE CONSIDERED BENIGN AT THIS POINT AND NO FURTHER FOLLOWUP IS NEEDED. Narrative 04/01/2010 3:34 PM CDT EXAM: CT CHEST WITHOUT IV CONTRAST HISTORY: Followup pulmonary nodule. COMPARISON: 03/30/2009 and 02/15/2008. TECHNIQUE: Serial contiguous transaxial images through the chest was obtained without IV administration of contrast. FINDINGS: Again demonstrated are diffuse emphysematous changes throughout both lung solomon. There are no confluent infiltrates or effusions identified. On image #34 in the left lung base posterolaterally is a subcentimeter subpleural density which has remained stable over a 2 year period. There is a 1.4 cm pulmonary nodule in the right middle lobe medially. This has also remained stable over the 2 year period. When nodules are demonstrated to be stable for a 2 year period, they are considered benign. No new pulmonary nodules are seen. No abnormal hilar or mediastinal adenopathy is appreciated. There is some shotty adenopathy within the middle mediastinum. The thoracic aorta is nonaneurysmal. Procedure Note Justin Ramos MD - 04/01/2010 EXAM: CT CHEST WITHOUT IV CONTRAST HISTORY: Followup pulmonary nodule. COMPARISON: 03/30/2009 and 02/15/2008. TECHNIQUE: Serial contiguous transaxial images through the chest was obtained without IV administration of contrast. FINDINGS: Again demonstrated are diffuse emphysematous changes throughout both lung solomon. There are no confluent infiltrates or effusions identified. On image #34 in the left lung base posterolaterally is a subcentimeter subpleural density which has remained stable over a 2 year period. There is a 1.4 cm pulmonary nodule in the right middle lobe medially. This has also remained stable over the 2 year period. When nodules are demonstrated to be stable for a 2 year period, they are considered benign. No new pulmonary nodules are seen. No abnormal hilar or mediastinal adenopathy is appreciated. There is some shotty adenopathy within the middle mediastinum. The thoracic aorta is nonaneurysmal. IMPRESSION STABLE PULMONARY NODULES OVER A TWO-YEAR DURATION ARE DEMONSTRATED. THEY ARE CONSIDERED BENIGN AT THIS POINT AND NO FURTHER FOLLOWUP IS NEEDED. Dayron Berry MD CT ORDERABLES * COMPREHENSIVE METABOLIC PANEL (04/13/2009 9:29 AM PACKAGE DYER) Only the most recent of2 resultswithin the time period is included. Glucose 84 65 - 99 mg/dL [facility] INSURANCE BILL BUN 15 5 - 26 mg/dL [facility] INSURANCE BILL Creatinine 0.81 0.57 - 1.00 mg/dL [facility] INSURANCE BILL eGFR by MDRD >59 >59 mL/min/1.7 3 [facility] INSURANCE BILL eGFR by MDRD >59 >59 mL/min/1.7 3 [facility] INSURANCE BILL Comment: Note: Persistent reduction for 3 months or more in an eGFR <60 mL/min/1.73 m2 defines CKD. Patients with eGFR values >/=60 mL/min/1.73 m2 may also have CKD if evidence of persistent proteinuria is present. Additional information may be found at [email or web address]. BUN/Creatinine Ratio 19 8 - 27 [facility] INSURANCE BILL Sodium 140 135 - 145 mmol/L [facility] INSURANCE BILL Potassium 4.4 3.5 - 5.2 mmol/L [facility] INSURANCE BILL Chloride 101 97 - 108 mmol/L [facility] INSURANCE BILL CO2 24 20 - 32 mmol/L [facility] INSURANCE BILL Calcium 9.6 8.5 - 10.6 mg/dL [facility] INSURANCE BILL Protein Total 7.0 6.0 - 8.5 g/dL [facility] INSURANCE BILL Albumin 4.4 3.5 - 5.5 g/dL [facility] INSURANCE BILL Globulin Total 2.6 1.5 - 4.5 g/dL [facility] INSURANCE BILL Albumin/Globulin Ratio 1.7 1.1 - 2.5 [facility] INSURANCE BILL Bilirubin Total 0.5 0.1 - 1.2 mg/dL [facility] INSURANCE BILL Alkaline Phosphatase 81 25 - 150 IU/L [facility] INSURANCE BILL AST 28 0 - 40 IU/L [facility] INSURANCE BILL ALT 38 0 - 40 IU/L [facility] INSURANCE BILL 04/13/2009 9:29 AM PACKAGE DYER 04/13/2009 10:24 PM PACKAGE DYER Narrative Resulting Agency Comment [facility] [place] [id number] [facility] [phone] Angeles Dickens PATTERN CLERK-HR RECRUITER LAB - CHEMISTRY ORDERABLES [facility] INSURANCE BILL * LDL CHOLESTEROL (08/03/2008 9:40 AM PACKAGE DYER) Only the most recent of2 resultswithin the time period is included. LDL Direct 90 <130 mg/dL [facility] Comment: DESIRABLE RANGE <100 MG/DL FOR PATIENTS WITH CHD OR DIABETES AND <70 MG/DL FOR DIABETIC PATIENTS WITH KNOWN HEART DISEASE. Test Performed at: [facility] [address] [place] [address] PAWAN GASTON MD BLOOD SPECIMEN / Unknown 08/03/2008 9:40 AM PACKAGE DYER 08/03/2008 11:14 PM PACKAGE DYER Dayron Berry MD LAB - CHEMISTRY OR DERABLES [place] [phone] [place] [address] * CO CARDIAC STRESS TST,COMPLETE, CO STRESS TTE W/ INTERP/REPORT, CO PLACE NEEDLE IN VEIN, CO THER PROPH/DX NJX IV PUSH 1ST SBST/DRUG, CO INJ DOBUTAMINE HCL/250 MG (04/21/2008 4:11 PM PACKAGE DYER) Narrative Heaven Klein - 04/21/2008 4:11 PM PACKAGE DYER Type of Stress Test: Treadmill stress echocardiogram PATIENT INFORMATION: Age: 52 y.o. : 1955 Height/Weight: 63in 155 lbs Sex: female Hours since last meal: 2 Activity level: moderately active REASON FOR PERFORMING TEST: Chest Pain RISK FACTORS: Hypertension: Negative Hyperlipids: Negative Diabetes: Negative Smoking History: History Tobacco Use Never Family History: CAD- father cad @ 46y.o., at 52 CAD: Negative Previous DE: Negative Post PTCA: Negative Resting EKG: NSR, Late R wave transition. Predicted Heart Rate: 100% = 168 85% = 142 EXERCISE BP PULSE SYMPTOMS Reached 85% (142) at 6:30 min Standing 136/82 79 3 min exercise 140/80 105 STRESS ECHOCARDIOGRAM 6 min exercise 150/80 154 9 min exercise 12 min exercise METS: 13.4 15 min exercise 18 min exercise POST EXERCISE 1 min 180/80 118 3 min 150/80 108 6 min 140/75 102 9 min Stopped at 9:30 min with a heart rate of 166. REASON TO STOP: Fatigue achieved 99% EKG RESULTS: 1. Maximal symptom limited ECG stress Negative for ischemia. 2. Appropritate heart rate and BP response to exercise. 3. Chest pain: absent 4. Arrhythmia: absent 5. Exercise functional capacity: normal ECHO RESULTS: At rest echo showed normal LV systolic function, following exercise showed normal augmentation with no evidence of exercise induced ischemia. Soraya Ramirez MD, FACC Procedure Note Heather Warren - 04/21/2008 10:19 AM CST Type of Stress Test: Treadmill stress echocardiogram PATIENT INFORMATION: Age: 52 y.o. : 1955 Height/Weight: 63in 155 lbs Sex: female Hours since last meal: 2 Activity level: moderately active REASON FOR PERFORMING TEST: Chest Pain RISK FACTORS: Hypertension: Negative Hyperlipids: Negative Diabetes: Negative Smoking History: History Tobacco Use Never Family History: CAD- father cad @ 46y.o., at 52 CAD: Negative Previous DE: Negative Post PTCA: Negative Resting EKG: NSR, Late R wave transition. Predicted Heart Rate: 100% = 168 85% = 142 EXERCISE BP PULSE SYMPTOMS Reached 85% (142) at 6:30 min Standing 136/82 79 3 min exercise 140/80 105 STRESS ECHOCARDIOGRAM 6 min exercise 150/80 154 9 min exercise 12 min exercise METS: 13.4 15 min exercise 18 min exercise POST EXERCISE 1 min 180/80 118 3 min 150/80 108 6 min 140/75 102 9 min Stopped at 9:30 min with a heart rate of 166. REASON TO STOP: Fatigue achieved 99% EKG RESULTS: 1. Maximal symptom limited ECG stress Negative for ischemia. 2. Appropritate heart rate and BP response to exercise. 3. Chest pain: absent 4. Arrhythmia: absent 5. Exercise functional capacity: normal ECHO RESULTS: At rest echo showed normal LV systolic function, following exercise showednormal augmentation with no evidence of exercise induced ischemia. Soraya Ramirez MD, FACC Dayron Berry MD ECHO ORDERABLES * C-REACTIVE PROTEIN (CRP) (04/17/2008 10:15 AM PACKAGE DYER) [facility] C-Reactive Protein 0.28 <0.80 mg/dL [facility] Comment: Test Performed at: [facility] [address] [place] [address] ATIF SOLER MD BLOOD SPECIMEN / Unknown 04/17/2008 10:15 AM PACKAGE DYER 04/11/2008 11:49 AM PACKAGE DYER Dayron Berry MD LAB - CHEMISTRY OR DERABLES [facility] [address] [place] [phone] * CBC W AUTO DIFFERENTIAL (04/17/2008 10:15 AM PACKAGE DYER) [facility] White Blood Cell Count 4.3 3.8 - 10.8 Thousand/u L [facility] RBC 5.04 3.80 - 5.10 Million/uL [facility] Hemoglobin 15.4 11.7 - 15.5 g/dL [facility] Hematocrit 44.7 35.0 - 45.0 % [facility] MCV 88.7 80.0 - 100.0 fL [facility] MCH 30.6 27.0 - 33.0 pg [facility] MCHC 34.6 32.0 - 36.0 g/dL [facility] RDW 12.4 11.0 - 15.0 % [facility] Platelet Count 261 140 - 400 Thousand/u L [facility] Neutrophil Absolute 2064 1500 - 7800 cells/uL [facility] Lymphocytes Absolute 1853 850 - 3900 cells/uL [facility] Absolute Monocytes 267 200 - 950 cells/uL [facility] Eosinophils Absolute 103 15 - 500 cells/uL [facility] Basophils Absolute 13 0 - 200 cells/uL [facility] Granulocytes % 48.0 % [facility] Lymphocytes % 43.1 % [facility] Monocytes % 6.2 % [facility] Eosinophils % 2.4 % [facility] Basophils % 0.3 % [facility] Comment: Test Performed at: [facility] [id number] [address] ATIF SOLER MD BLOOD SPECIMEN / Unknown 04/17/2008 10:15 AM PACKAGE DYER 04/07/2008 10:56 AM PACKAGE DYER Dayron Berry MD LAB - HEMATOLOGY O RDERABLES Performing Organization Address [facility] [place] [address] * TSH (04/17/2008 10:15 AM PACKAGE DYER) TSH 2.31 mIU/L [facility] Comment: REFERENCE RANGE: > OR = 20 YEARS: 0.40-4.50 RANGES FIRST TRIMESTER 0.20-4.70 SECOND TRIMESTER 0.30-4.10 THIRD TRIMESTER 0.40-2.70 Test Performed at: [place] [address] ATIF SOLER MD BLOOD SPECIMEN / Unknown 04/17/2008 10:15 AM PACKAGE DYER 04/07/2008 10:56 AM PACKAGE DYER Dayron Berry MD LAB - CHEMISTRY OR DERABLES Performing Organization Address [facility] [address] * CHG ELECTROCARDIOGRAM, COMPLETE [[id number]] (04/07/2008 11:02 AM PACKAGE DYER) Dayron Berry MD CO - PROFESSIONAL SERVICES * EKG 12-LEAD (04/07/2008) Dayron Berry MD ECG ORDERABLES * CT CHEST WITH CONTRAST (03/20/2007 10:55 AM CDT) Anatomical Region Laterality Modality Chest Other 03/20/2007 10:5 5 AM CDT Narrative 03/23/2007 3:[address] CHEST HISTORY- Right pulmonary nodule identified on CT abdomen and pelvis. FINDINGS Again identified within the central aspect of the right middle lobe is a soft tissue density measuring 8 mm diameter. No adjacent spiculation. Remainder of the lung solomon are without other nodule or abnormal density. No posterior pleural thickening. Minimal posterior dependent atelectasis. The anterior mediastinum and hilum are without evidence for mass or pathologic appearing adenopathy. Cardiac silhouette is not enlarged. No pericardial thickening. The lower neck structures including the axillary regions are without gross irregularity. The upper abdominal organs were formally evaluated on recent CT abdomen. IMPRESSION- 8 MM SOFT TISSUE DENSITY WITHIN THE RIGHT MIDDLE LOBE. NO OTHER PARENCHYMAL IRREGULARITIES. THIS COULD BE EITHER REEVALUATED WITH SERIAL CT'S OR IF CONCERN FOR MALIGNANCY, A BIOPSY COULD BE PERFORMED. Reading Radiologist- BHAVIK Chapman MD Releasing Radiologist- SHANNON MAJOR M.D. Released Date Time- 03/23/07 1548 - DAYRON BERRY ATT- KRISTI,DAYRON Bill REF- DAYRON BERRY CON- PCP- DAYRON BERRY [facility]- Dayron Berry MD CT ORDERABLES * CT ABDOMEN AND PELVIS WITH IV CONTRAST (03/11/2007 10:00 AM CDT) Anatomical Region Laterality Modality Abdomen, Pelvis Other 03/11/2007 10:0 0 AM CDT Narrative 03/12/2007 10:[address] ABDOMEN AND PELVIS INDICATION- Abdominal pain right lower quadrant^ rule out hernia. Spiral post contrast imaging was performed. There are no prior studies for comparison. The lower lung solomon are clear. Liver and spleen enhance normally. The gallbladder and pancreas appear fairly unremarkable. The adrenals are not enlarged. The kidneys enhance symmetrically. There is a presumed cyst of 1 to 1.5 cm in the right kidney with a few other tiny lesions suspected, much too small for accurate characterization. The aorta is of normal caliber. The bowel in the upper abdomen appears normal. IMPRESSION- NEGATIVE UPPER ABDOMINAL CT NOT DESCRIBED ABOVE IS A 1 CM SOFT TISSUE PULMONARY NODULE IN THE RIGHT MIDDLE LOBE ON THE FIRST TWO IMAGES. THIS IS INDETERMINATE AND SHOULD BE FURTHER EVALUATED WITH A DEDICATED CT OF THE CHEST, PERHAPS WITH ADDITIONAL HIGH RESOLUTION IMAGING TO EXCLUDE A PRIMARY LUNG MASS OR METASTASIS. . Post contrast imaging was performed. Although the uterus is not enlarged, there are at least two low attenuation masses seen consistent with myomas, the largest to the right of 2.5 cm in diameter. Both ovaries are seen and are felt to be of normal caliber. There is moderate diverticulosis of the sigmoid colon but no evidence of acute diverticulitis or other pelvic inflammatory change, mass or adenopathy. There is a normal appendix seen. There is no evidence of an abdominal or inguinal hernia. IMPRESSION- MYOMATOUS UTERUS. DIVERTICULOSIS, OTHERWISE NEGATIVE CT OF THE PELVIS. NO MASS, INFLAMMATORY CHANGE OR HERNIA IS IDENTIFIED. FAIRLY ADVANCED POSTERIOR FACET DEGENERATIVE CHANGES, PROBABLY INCOMPLETE PARS DEFECTS AT L5. FLAGGED FOR FOLLOW UP. Reading Radiologist- Valentín Larios M.D. Releasing Radiologist- SHANNON MAJOR M.D. Released Date Time- 03/12/07 1526 Single Spindle Screw Machine Operator- SH DAYRON PICHARDO LEONARD M REF- DAYRON BERRY- PCPDAYRON [place]ILA [facility]- Dayron Berry MD CT ORDERABLES * CULTURE URINE (03/06/2007 11:00 PM CDT) Pathologist [facility] Culture [facility] Comment: CULTURE, URINE, ROUTINE MICRO NUMBER: [id number] TEST STATUS: FINAL SPECIMEN SOURCE: URINE SPECIMEN COMMENTS: ADEQUATE RESULT: MULTIPLE ORGANISMS PRESENT, EACH LESS THAN 10,000 CFU/ML. THESE ORGANISMS, COMMONLY FOUND ON EXTERNAL AND INTERNAL GENITALIA, ARE CONSIDERED TO BE COLONIZERS. NO FURTHER TESTING PERFORMED. NO COLLECTION DATE RECEIVED. WE HAVE USED THE DATE THE SPECIMEN WAS RECEIVED BY THIS LABORATORY THE COLLECTION DATE. IF THIS IS INCORRECT, PLEASE CONTACT CLIENT SERVICES. PHONE NUMBER: [phone] Test Performed at: [facility] [address] [place] [address] ATIF SOLER MD 03/06/2007 1:3 3 AM CDT Dayron Berry MD LAB - MICROBIOLOGY ORDERABLES Performing Organization Address [facility] de Phone Number [facility] [id number] [place] [address] * BASIC METABOLIC PANEL (03/05/2007 8:47 AM CDT) Glucose 94 65 - 99 mg/dL [facility] Comment:FASTING REFERENCE IN TERVAL BUN 15 7 - 25 mg/dL [facility] Creatinine 0.8 0.5 - 1.2 mg/dL [facility] eGFR by MDRD >60 > OR = 60 mL/min/1.7 3m2 [facility] Comment: IF THE PATIENT IS -WELSH, PLEASE MULTIPLY THIS RESULT BY 1.21. THIS RESULT HAS BEEN CALCULATED ASSUMING THE PATIENT IS NON-. BUN/Creatinine Ratio 19 6 - 22 (calc) [facility] Sodium 141 135 - 146 mmol/L [facility] Potassium 4.2 3.5 - 5.3 mmol/L [facility] Chloride 103 98 - 110 mmol/L [facility] CO2 22 21 - 33 mmol/L [facility] Calcium 9.2 8.6 - 10.2 mg/dL [facility] Comment: Test Performed at: [facility] [facility] [place] [address] [place] [address] ATIF SOLER MD 03/05/2007 8:47 AM CDT 03/05/2007 11:55 PM CDT Dayron Berry MD LAB - CHEMISTRY OR DERABLES Performing Organization Address [facility] Co de Phone Number [facility] [address] [place] [address] Care Teams Product Marketing Consultant Relationship Specialty Start Date End Date Dior Anderson APRN-PONCHO [address] [address] PCP - General 01/28/21
--- OUTSIDE RECORDS SUMMARY | 2024-08-15 10:07 | XMS_ITS | Clinical Summary ---
Author Organization [facility] Address [address] [place] [address] Phone Care Team Providers Care Dust Mill Operator Name Role Phone Mark Page MD Primary Care Provider Allergies Active Allergy Reactions Criticality Noted Date [...] capsule TAKE 1 CAPSULE BY MOUTH DAYS 1- OF EACH MONTH 25 capsule 8 08/05/19 25 Discontinu ed(Therapy completed) benzonatate (TESSALON) 100 mg capsule Take 1 capsule (100 mg total) by mouth 3 (three) times a day as needed 6 08/05/19 25 Discontinu ed(Therapy completed) metFORMIN (GLUCOPHAGE) 500 mg tablet 0 08/05/19 25 Discontinu ed(Alterna te therapy) oseltamivir (TAMIFLU) 75 mg capsule Take 1 capsule (75 mg total) by mouth daily 5 08/05/19 25 Discontinu ed(Therapy completed) Active Problems Problem Noted Date Diagnosed Date Overweight with body mass in dex (BMI) of 28 to 28.9 in adult 08/05/2024 Assessment & Plan (08/05/2024 6:05 AM STUDIO POTTER): Wt Readings from Last 3 Encounters: 08/04/24 [...] 08/04/2024 Assessment & Plan (08/05/2024 6:02 AM STUDIO POTTER): - New or chronic worsening conditions: no [...] 08/04/2024 Assessment & Plan (08/05/2024 6:01 AM STUDIO POTTER): -chronic, controlled -patient currently takes metformin 500 mg daily -reiterated importance of diabetic foot and eye exams -will recheck lab work -continue current treatment plan Vitamin D deficiency 08/04/2024 Assessment & Plan (08/05/2024 6:01 AM STUDIO POTTER): -chronic, controlled -patient currently takes vitamin D3 supplement -will recheck lab value -continue current treatment plan 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 Hypertension 06/14/2021 Assessment & Plan (08/05/2024 5:59 AM STUDIO POTTER): BP Readings from Last 3 Encounters: 08/04/24 135/85 05/15/17 130/72 05/13/16 120/86 -chronic, at goal of <140/90 -currently taking metoprolol 50 mg, losartan-hydrochlorothiazide 50-12.5 mg daily -patient reports checking blood pressure regularly at home -encourage patient to continue low-sodium diet -continue current treatment plan Lung mass 06/14/2021 Personal history of tobacco use 06/14/2021 Assessment & Plan (08/05/2024 6:04 AM STUDIO POTTER): Tobacco Use: Medium Risk (08/04/2024) Patient History Smoking Tobacco Use: Former Smokeless Tobacco Use: Never Passive Exposure: Not on file -stable, at goal -patient reports ongoing smoking cessation -patient educated on benefits of continued smoking cessation -continue current treatment plan -total time spent on tobacco cessation education 3 minutes Hyperlipidemia 03/29/2008 Assessment & Plan (08/05/2024 5:58 AM STUDIO POTTER): -chronic, controlled -Previously prescribed simvastatin 20 mg -Discussed importance of well-balanced diet -will recheck lab values -continue current treatment plan Pulmonary nodule 03/29/2008 Encounters Date Type Department Care Team Description 08/05/2024 Telephone [facility] Primary Care at [address] [place] [phone] Mark Page MD Appointment 08/04/2024 10:00 AM STUDIO POTTER Office Visit [facility] Primary Care at [address] [place] [phone] Shyann Sullivan NP Establishing care with new doctor, encounter for (Primary Dx); Preventative health care; Primary hypertension; Hyperlipidemia, unspecified hyperlipidemia type; Prediabetes; Vitamin D deficiency; Personal history of tobacco use; Overweight with body mass index (BMI) of 28 to 28.9 in adult; Screening for thyroid disorder from Last 3 Months Immunizations Immunization Administration Dates Next Due DT 12/13/2003 Influenza Virus Vaccine Trivalent Mdv 02/01/2024 Influenza, Quadrivalent, Spl it, Preservative Free, Intramuscular 03/29/2019,03/05/2018,04/03/2017,03/28 Influenza, Trivalent, IM (MDV) 04/01/2010,2007 Influenza, Trivalent, Preser vative Free, Intramuscular 03/03/2016 Moderna SARS-CoV-2 Monovalen t Vaccination (12+ YRS) 07/24/2020,06/26/2020 MyPronostic Sars-Cov-2 Bivalent V accination (12+ YRS) 02/01/2024 Tdap 04/07/2008 ZOSTER LIVE 03/03/2016 ZOSTER Recombinant 06/20/2019 Surgical History Surgery Date Site/Laterality Comments REPLACEMENT TOTAL KNEE BILATERAL 2023 Medical History Medical History Date Comments GERD (gastroesophageal reflux disease) Hyperlipidemia Hypertension Prediabetes Family History Medical History Relation Name Comments Cancer Brother 1 Heart disease Brother 2 Hypertension Brother 3 Early Father age of 51 Heart attack Father x2, COD Heart disease Father Heart disease; No Known Problems Maternal Grandfather Stroke Maternal Grandmother bowel obstruction Maternal Grandmother CO D Cancer Mother pericardial can cer Early Mother age 62 Heart disease Mother Hyperlipidemia Mother Hypertension Mother Mental illness Mother depression, b ipolar Hypertension Other 1 Family history of Hypertension; Skin cancer Other 2 Family history of Cancer, skin; No Known Problems Paternal Grandfather Alzheimer's disease Paternal Grandmother Cancer Sister uterine cancer Diabetes Sister prediabetes Relation Name Status Comments Brother 1 Brother 2 Alive Brother 3 Alive Father Maternal Grandfather Maternal Grandmother Mother Other 1 Other 2 Paternal Grandfather Paternal Grandmother Sister Social History Tobacco Use Types Packs/Day [...] on file Legal Sex Female 2:08 AM STUDIO POTTER Gender Identity Not on file Sexual Orientation Not on file Obstetrics History Last Filed Vital Signs Vital Sign Reading Time Taken Comments Blood Pressure 135/85 08/04/2024 10:41 AM STUDIO POTTER typical blood pressure reading at home Pulse 67 08/04/2024 10:15 AM STUDIO POTTER Temperature 36.5 C (97.7 F) 08/04/2024 10:15 AM STUDIO POTTER Respiratory Rate 16 08/04/2024 10:1 5 AM STUDIO POTTER Oxygen Saturation 96% 08/04/2024 10: 15 AM STUDIO POTTER Inhaled Oxygen Concentration - - Weight 74 kg (163 lb 3.2 oz) 08/04/2024 10:15 AM STUDIO POTTER Height 160 cm (5' 2.99 ) 08/04/2024 10: 15 AM STUDIO POTTER Body Mass Index 28.92 08/04/2024 10:15 AM STUDIO POTTER Plan of Treatment Health Maintenance Due Date Last Done Comments Colon Cancer Screening-Colonoscopy 1955 Hepatitis C Screening 1955 Hepatitis B Screening 08/06/1973 Pneumococcal vaccine 65+ (1 of 1 - PCV) 08/06/2005 DTaP/Tdap/Td Vaccine (3 - Td or Tdap) 04/07/2018 04/07/2008, 12/13/2003 Zoster Vaccine (3 of 3) 08/15/2019 06/20/2019, 03/03 Osteoporosis Screening-Bone Density Scan 07/15/2021 07/15/2019 Breast Cancer Screening-Mammogram 09/19/2021 09/19/2020, 07/15/2019, 07/14/2018, Additional history exists Covid-19 Vaccine ( season) 2025 02/01/2024, 07/24/2020, 06/26/2020 Postponed from 03/28/2024 (Patient declined, but will receive in the future) Depression Screening 08/04/2025 08/04/2024 Fall Risk Assessment 08/04/2025 08/04/2024 Well Visit 65+ 08/04/2025 08/04/2024, 10/2024, 05/15/2017 Influenza Vaccine Completed 02/01/2024, , 03/05/2018, Additional history exists Procedures Procedure Name Priority Date/Time Associated Diagnosis Comments SCREENING MAMMOGRAM BILATERAL W SANTIAGO Schedule Routine, Read Routine (OP Routine) 09/19/2020 1:32 PM CDT Encounter for screening mammogram for malignant neoplasm of breast DEXA AXIAL SKELETON BONE DENSITY 1 OR MORE SITES Schedule Routine, Read Routine (OP Routine) 07/15/2019 11:08 AM STUDIO POTTER Screening for osteoporosis from Last 3 Months [...] 1 or 2 Site (07/15/2019 11:08 AM STUDIO POTTER) Anatomical Region Laterality Modality Body N/A Digital Radiogra phy 07/15/2019 11:1 5 AM STUDIO POTTER Impressions 07/15/2019 11:16 AM STUDIO POTTER Low bone mass (osteopenia) which depending on the clinical circumstances may result in a moderate increased risk of fragility fracture. If followup is to be done, for technical reasons, it should be performed on this same machine. Electronically signed by: Vinny Cordero M.D. Narrative 07/15/2019 11:16 AM STUDIO POTTER EXAM: Bone mineral density [facility]. HISTORY: Postmenopausal. Hormone replacement therapy. Calcium and vitamin D supplementation. Assess for osteoporosis. DXA BMD was done at [facility] on a [employer] CI. Precision testing at this site has [...] MD - 07/15/2019 EXAM: Bone mineral density [facility]. HISTORY: Postmenopausal. Hormone replacement therapy. Calcium and vitamin D supplementation. Assess for osteoporosis. DXA BMD was done at [facility] on a [employer] CI. Precision testing at this site [...] Relevant to Health Maintenance [place] [address] MDCR HMO REF Member Subscriber Plan / Payer (Ef fective 2020-Present) Name:Mirta Reyes Jose M Relation to Subscriber:Self Name:Mirta Reyes Payer ID:[id number] (NAIC) Type:[facility] MEDIC[facility] Address: [place] [phone] MEDICARE [employer] Care Teams Dust Mill Operator Relationship Specialty Start Date End Date Mark Page MD [address] [place] [address] [address] PCP - General Family Medicine 08/04/24
--- OUTSIDE RECORDS SUMMARY | 2024-08-15 10:07 | XMS_ITS | Data Portability ---
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 [email or web address] Not available 07/16/2023 09:28:51 Plan of Treatment Reminders Order Date Submit Date Provider Last Modified By Organization Details Last Modified Time Details Appointments None recorded. Lab hemoglobin A1C, fingerstick [address], [place], [address], 3 15:24:52 urinalysis, dipstick [address], [place], [address], 3 16:04:50 urinalysis, complete - do sensitiviti es 2022 023 [place] [facility], [facility] [address], [place], [address], 3 00:40:59 Referral None recorded. Procedures None recorded. Surgeries None recorded. Imaging electrocard iogram 2022 023 [email or web address] [facility] [address], [place], [address], 3 15:31:27 Medication Orders Xarelto 20 mg tablet 2023 024 [facility] [id number] [facility], [address], [place], [address], 4 16:04:29 Patient TargetsNo targets recorded. Patient Instructions Encounter Date Encounter Id Patient Instructions Last Modified By Organization Details Last Modified Time 09/02/2022 [id number] dementia rating scale-2* Not available 09/02/2022 11:12:28 alcohol misuse* Not available 09/02/2022 11:12:39 depression screening* Not available 09/02/2022 11:12:56 multi-dimensiona l health assessment questionnaire* Not available 09/02/2022 11:11:52 Personalized a lth Plan and Screening Recommendations Advance Directives - Do you have one? Yes Advance Directives - Do we have your advance directive on file in your health record? No, please bring in a copy at your earliest convenience Primary Prevention/Interven tion (prevents or decreases the chance of common diseases from occurring) Smoking Risk: Non Smoker Alcohol Misuse Screening: Positive Refer to attached alcohol cessation handout Refer to attached handout and prescription will be sent to pharmacy Decrease alcohol intake to 1 or less servings per day Continue to consider stopping alcohol and call if we can assist you Weight: Appropriate Overwei ght continue your current weight loss efforts try to lose 5% of your body weight Physical activity: Need more exercise/physical activity decrease sitting time to no more than 5hr/day Nutrition: Good Fall Risk (screened today): Low Vaccines Pneumococcal: Ordered Recommended today Recommended today, but you have declined No further needed Influenza: Your next one in the fall of this year Chronic Disease Risks Stroke: Low Risk Intermediate Risk Heart Attack: Low risk Intermediate Risk Clogging of the Arteries: Low risk Intermediate Risk Diabetes: Low Risk I have no recommendations Secondary Prevention/Interven tion (detects treatable diseases before they may cause symptoms, disability, or ) Breast Cancer Screening with mammogram: Cervical/Uterine/Ov jarret Cancer Screening: No screening necessary Osteoporosis Screening: Your next DEXA in: Ordered Recomme nded today Date Screening Last Performed: Per patient, over 2 years ago Colon Cancer Screening: Colonoscopy Date Screening Last Performed: 07/2022 with repeat recommendation for 5 years Eye Disease Screening: Dementia Risk: Low I have no recommendations Depression Screening: Negative [email or web address] Not available 09/01/2022 12:02:21 05/19/2023 [id number] hgb A1c 6.4 , no increased risk of infection . is cleared for surgery [email or web address] Not available 05/30/2023 11:01:08 07/16/2023 [id number] Thank you for yo ur visit to our office today. We would like to request that you reach out to your referring or previous provider and request that they send us a Summary of Care in electronic form, so that we may have it on file in your medical record. At your visit, we had the medical records we needed to provide you with the best possible care; however, for insurance purposes, an electronic Summary of Care is beneficial. Thank you for your assistance in obtaining this information and we look forward to providing continued care to you. Please review your medication list from the Summary of Care for this visit. If there are any differences from what you are currently taking at home, please call us to discuss. [email or web address] Not available 07/16/2023 09:28:52 Homebound Status : {{Patient has an inability to leave the home without a taxing effort and assistance from another person Does not meet homebound status}} Required Home Health Services: {{none correction, physical therapy, occupational therapy correction, physical therapy correction}} Durable Medical Equipment needed: {{cane walker walke r with seat manual wheelchair bedside commode oxygen}} Billing Guidelines CPT code 76742- Transitional Care Management services with moderate medical decision complexity ([id number]-[id number] visit within 14 days of discharge). CPT code 29967- Transitional Care Management services with high medical decision complexity (tosz-gp-hikr visit within 7 days of discharge). Not available 07/16/2023 09:28:52 Reason for Referral None Reported. Results Created Date Observation Date Name Description Value Unit Range Abnormal Flag Note LastModifiedBy Organization Detail LastModifiedTime 03/21/2003/22/2022 HEMOG LOBIN A1C hemoglobin A1C 5.8 %_of_ total _HGB <5.7 high For someo ne witho ut known diabe prosper, a hemog lobin A1c value betwe en 5.7% and 6.4% is consi stent with predi abete s and shoul d be confi rmed with a follo w-up test. For someo ne with known diabe prosper, a value <7% indic ates that their diabe prosper is well contr olled . A1c targe ts shoul d be indiv idual ized based on durat ion of diabe prosper, age, comor bid condi tions , and other consi derat ions. This assay resul t is consi stent with an incre ased risk of diabe prosper. Curre ntly, no conse nsus exist s regar ding use of hemog lobin A1c for diagn osis of diabe prosper for child mi. Not Available [address] [address] [place], [address], 03/22/2022 10:14:18 03/21/2003/22/2022 HEPAT IC FUNCT ION PANEL bilirubin, total 0.5 mg/dL 0.2-1. 2 normal Not Available [address] [address] [place], [address], 03/22/2022 10:14:17 03/21/20 22 03/22/2022 HEPAT IC FUNCT ION PANEL bilirubin, direct 0.1 mg/dL < or = 0.2 normal Not Available [facility] [address] [address] [place], [address], 03/22/2022 10:14:17 03/21/20 22 03/22/2022 HEPAT IC FUNCT ION PANEL bilirubin, indirect 0.4 mg/dL _(hakeem c) 0.2-1. 2 normal Not Available [facility] [address] [address] [place], [address], 03/22/2022 10:14:17 03/21/20 22 03/22/2022 HEPAT IC FUNCT ION PANEL alkaline phosphatase 53 U/L 37-153 normal Not Available [address], [address], 03/22/2022 10:14:17 03/21/20 22 03/22/2022 HEPAT IC FUNCT ION PANEL AST 20 U/L 10-35 normal Not Available [address], [address], 03/22/2022 10:14:17 03/21/20 22 03/22/2022 HEPAT IC FUNCT ION PANEL ALT 24 U/L 6-29 normal Not Available [address], [address], 03/22/2022 10:14:17 03/21/20 22 03/22/2022 HEPAT IC FUNCT ION PANEL protein, total 6.9 g/dL 6.1-8. 1 normal Not Available [address], [address], 03/22/2022 10:14:17 03/21/2003/22/2022 HEPAT IC FUNCT ION PANEL albumin 4.6 g/dL 3.6-5. 1 normal Not Available [address], [address], 03/22/2022 10:14:17 03/21/20 22 03/22/2022 HEPAT IC FUNCT ION PANEL globulin 2.3 g/dL_ (calc ) 1.9-3. 7 normal Not Available [address], [address], 03/22/2022 10:14:17 03/21/20 22 03/22/2022 HEPAT IC FUNCT ION PANEL albumin/glob ulin ratio 2.0 (calc ) 1.0-2. 5 normal Not Available [address], [address], 03/22/2022 10:14:17 03/21/2003/22/2022 BASIC METAB OLIC PANEL glucose 99 mg/dL 65-99 normal Fasti ng refer ence inter christiano Not Available [address], [address], 03/22/2022 10:14:16 03/21/2003/22/2022 BASIC METAB OLIC PANEL urea nitrogen (BUN) 20 mg/dL 7-25 normal Not Available [address], [address], 03/22/2022 10:14:16 03/21/2003/22/2022 BASIC METAB OLIC PANEL creatinine 0.85 mg/dL 0.50-1 .05 normal Not Available [address], [address], 03/22/2022 10:14:16 03/21/20 22 03/22/2022 BASIC METAB OLIC PANEL eGFR 76 mL/mi n/1.7 3m2 > or = 60 normal The eGFR is based on the CKD-E PI 2020 equat ion. To calcu late the new eGFR from a previ ous Creat inine or Cysta tin C resul t, go to https ://buddy jasmine.dionna morton/gracia carrillo s/ kdoqi /gfr% 5Fcal culat or Not Available [address], [address], 03/22/2022 10:14:16 03/21/20 22 03/22/2022 BASIC METAB OLIC PANEL BUN/creatini ne ratio not applic able (calc ) 6-22 Not Available [address], [address], 03/22/2022 10:14:16 03/21/20 22 03/22/2022 BASIC METAB OLIC PANEL sodium 141 mmol/ L 135-14 6 normal Not Available [address] [place], [address], 03/22/2022 10:14:16 03/21/2003/22/2022 BASIC METAB OLIC PANEL potassium 4.6 mmol/ L 3.5-5. 3 normal Not Available [address], [address], 03/22/2022 10:14:16 03/21/2003/22/2022 BASIC METAB OLIC PANEL chloride 105 mmol/ L 98-110 normal Not Available [address], [address], 03/22/2022 10:14:16 03/21/2003/22/2022 BASIC METAB OLIC PANEL carbon dioxide 24 mmol/ L 20-32 normal Not Available [address], [address], 03/22/2022 10:14:16 03/21/2003/22/2022 BASIC METAB OLIC PANEL calcium 9.4 mg/dL 8.6-10 .4 normal Not Available [address], [address], 03/22/2022 10:14:16 03/21/2003/22/2022 LIPID PANEL , STAND VIELKA cholesterol, total 159 mg/dL <200 normal Not Available [address], [address], 03/22/2022 10:14:16 03/21/2003/22/2022 LIPID PANEL , STAND VIELKA HDL cholesterol 49 mg/dL > or = 50 low Not Available [address], [address], 03/22/2022 10:14:16 03/21/20 22 03/22/2022 LIPID PANEL , STAND VIELKA triglyceride s 139 mg/dL <150 normal Not Available [address], [address], 03/22/2022 10:14:16 03/21/20 22 03/22/2022 LIPID PANEL , STAND VIELKA LDL-choleste rol 86 mg/dL _(hakeem c) normal Refer ence range : <100 Isela able range <100 mg/dL for prima ry preve ntion ; <70 mg/dL for patie nts with CHD or diabe tic patie nts with > or = 2 CHD risk facto rs. LDL-C is now calcu lated using the Belinda n-Hop kins calcu latio n, which is a valid ated novel metho d provi ding jana r accur acy than the Fried graham equat ion in the estim ation of LDL-C . Belinda ashraf SS et al. LOS. 2013; 310(1 9): 2061- 2068 (http ://ed ucati on.Flixwagon. com/f aq/FA Q164) Not Available [facility] [address] [place], [address], 03/22/2022 10:14:16 03/21/20 22 03/22/2022 LIPID PANEL , STAND VIELKA chol/HDLC ratio 3.2 (calc ) <5.0 normal Not Available [facility] [address] [place], [address], 03/22/2022 10:14:16 03/21/20 22 03/22/2022 LIPID PANEL , STAND VIELKA non HDL cholesterol 110 mg/dL _(hakeem c) <130 normal For patie nts with diabe prosper plus 1 major ASCVD risk facto r, treat ing to a non-H DL-C goal of <100 mg/dL (LDL- C of <70 mg/dL ) is erlinda andrews c optio n. Not Available [facility] [address] [place] [place], [address], 03/22/2022 10:14:16 04/07/20 23 04/07/2023 urina lysis , dipst ick Leukocytes (reference range: negative maureen/ l) Small Not Available [address], [place], [address], 04/07/2023 15:35:26 04/07/20 23 04/07/2023 urina lysis , dipst ick Nitrite (reference rage: negative mg/dl) negati ve Not Available [address], [place], [address], 04/07/2023 15:35:26 04/07/20 23 04/07/2023 urina lysis , dipst ick Urobilinogen (reference range: 0.2-1 mg/dl) 0.2 Not Available [address], [place], [address], 04/07/2023 15:35:26 04/07/20 23 04/07/2023 urina lysis , dipst ick Protein (reference range: negative mg/dl) Negati ve Not Available [address], [place], [address], 04/07/2023 15:35:26 04/07/20 23 04/07/2023 urina lysis , dipst ick pH (reference range: 5-7) 6.5 Not Available [address], [place], [address], 04/07/2023 15:35:26 04/07/20 23 04/07/2023 urina lysis , dipst ick Blood (reference range: negative Gerber/ l) Small Not Available [address], [place], [address], 04/07/2023 15:35:26 04/07/20 23 04/07/2023 urina lysis , dipst ick Specific Ferney (reference range: 1.005-1.030) 1.015 Not Available [address], [place], [address], 04/07/2023 15:35:26 04/07/20 23 04/07/2023 urina lysis , dipst ick Ketone (reference range: negative mg/dl) Negati ve Not Available [address], [place], [address], 04/07/2023 15:35:26 04/07/20 23 04/07/2023 urina lysis , dipst ick Bilirubin (reference range: negative mg/dl) Negati ve Not Available [address], [place], [address], 04/07/2023 15:35:26 04/07/20 23 04/07/2023 urina lysis , dipst ick Glucose (reference range: negative mg/dl) Negati ve Not Available [address], [place], [address], 04/07/2023 15:35:26 04/07/20 23 04/07/2023 urina lysis , dipst ick Appearance Clear Not Available [address], [place], [address], 04/07/2023 15:35:26 04/07/20 23 04/07/2023 urina lysis , dipst ick Color Yellow Not Available [address], [place], [address], 04/07/2023 15:35:26 05/19/20 23 05/19/2023 hemog lobin A1C, finge rstic k HgbA1C 6.4 Not Available [facility] [address], [place], [address], 05/19/2023 15:08:48 06/17/19 23 06/17/2022 MAMMO , scree fab, bilat eral No observ ation record ed. [id number] [facility] [address], [place], [address], 07/30/2022 20:22:35 06/17/19 MAMMO , scree fab, digit al, bilat eral [facility] [address], [place] [address] Patien t Name: MIRTA ORTEGA Jose M Access ion #: [id number] Sex: F : 1955 5 6 Locati on: RA2 Attend ing Physic alex: ELKHAT IB, RUNDA Orderi ng Physic alex: ELKHAT IB, RUNDA Exam Date: 023 9:58 AM Exam Name: MG DIGITA L AUDRA BILAT SCREEN Admitt ing Diagno sis(es ): RADIOL OGY REPORT - FINAL EXAM: MG DIGITA L AUDRA BILAT SCREEN HISTOR Y: SCREEN ING MAMMOG JOHN 66-yea r-old female with no curren t breast compla ints. COMPAR CONRAD: None availa ble. TECHNI QUE: Bilate ral CC and MLO views of the breast s were perfor med. Digita l Mammog micah images were obtain ed. CAD (compu ter assist ed detect ion) was utiliz ed. FINDIN GS: There are scatte red areas of fibrog landul ar densit y. No masses , asymme tries, suspic ious calcif icatio ns, or sky ectura l distor tion are seen. Page 1 of 2 [facility] Patien t Name: MIRTA ORTEGA Jose M Access ion #: [id number] Sex: F : 1955 5 6 Exam Date: 023 9:58 AM Exam Name: MG VIJAYA Salguero AUDRA BILAT SCREEN Admitt ing Diagno sis(es ): IMPRES REBECCA: BIRADS 1: Assess ment comple te. Negati ve. Recomm end annual screen ing mammog micah. Accord ing to the [employer], yearly mammog blaire are recomm ended starti ng at age 40 and contin uing as long as the woman is in good health . Clinic al Breast Exam should be part of the period health exam-a bout every 3 years for women in their 20s and 30s and every year for women 40 and over. Breast self-e xam is an option for women in their 20s. Any breast change noted on the breast self-e xam she would be report ed prompt ly to the [facility]. A negati ve mammog micah report should not discou rage follow -up or biopsy of a clinic ally signif icant findin g and/or abnorm ality. Dense breast tissue may obscur e small neopla sms. This jordan whiting has been entere d into a mammog micah remind er system with a target date for her next mammog john. Create d and electr onical ly signed by: Jose pedersen MD Signed Date: 023 12:07 PM (CT) Dictat ed by: Jose pedersen MD DD: 023 12:07 PM (CT) DT: 023 12:07 PM (CT) Page 2 of 2 [facility]. [facility] (Imaging) [address] [place], [address], 07/30/2022 20:22:35 06/24/19 23 06/24/2022 imagi ng/di annabelos lilly whiting No observ ation record ed. MIGRATION. [address], [place], [address], 07/30/2022 20:22:35 06/24/19 23 06/24/2022 imagi ng/di agnos lilly whiting No observ ation record ed. [id number] [facility] [address], [place], [address], 07/30/2022 20:22:35 05/19/20 23 abigail royal am No observ ation record ed. [email or web address] [facility] [address], [place], [address], 05/19/2023 15:08:41 07/06/19 24 07/03/2023 , [facility] No observ ation record ed. [email or web address] [facility] Main Out Patient Lab [address], [place], [address], 07/06/2023 16:52:31 07/30/19 24 07/30/2023 MAMMO , scree fab, digit al, bilat eral No observ ation record ed. [email or web address] [facility] [address] [place], [address], 07/30/2023 15:25:15 Result Notes None recorded. 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 3 17:11:07 Essential hypertensi on 84910808 Active 2021 Not Available 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 3 17:11:07 Arthritis 0875849 Active 2022 Not Available [facility] 3 17:11:07 Dysuria 92839669 Active 2022 [facility] [address], [place], [address] , [facility] 3 15:35:17 Acute urinary tract infection 546620083 Active 2022 [facility] [address], [place], [address] , [facility] 3 16:29:11 Pre-surger y evaluation Active 2022 [facility] [address], [place], [address] , [facility] 3 15:07:34 Deep venous thrombosis 812376678 Active 2023 Right knee [facility] [address], [place], [address] , [facility] 4 09:48:46 Problem Notes None recorded. Procedures Surgical History Date Name Laterality Status Provider Name and Address Organization Details Recorded Time 07/30/19 24 screening mammography completed Marilee Lindsey RN [facility] 07/30/2023 15:25:11 07/16/19 24 Transitional_Care_ Management completed Karen Mario RN [facility] [employer] 07/16/2023 09:28:52 06/18/19 24 Knee Replacement completed Karen Mario RN [facility] [employer] 07/16/2023 09:36:45 09/03/19 23 Medicare Wellness CPT Code, Initial completed Luz Marina Whitney RN [place] [employer] [facility] [employer] 09/01/2022 11:57:10 09/20/19 21 Most Recent Mammogram completed Not Available [facility] 07/30/2022 20:19:40 06/01/19 21 cardiac catheterization completed SOY Tee [facility] [employer] 07/16/2023 09:37:38 Imaging Results Imaging Date Name Status LastModified by Organization Details LastModified Time 06/24/2022 imaging/diagnostic result completed [id number] [facility] [address], [place], [address], 07/30/2022 20:22:35 06/17/2022 MAMMO, screening, bilateral completed [id number] [facility] Orders [address] [place], [address], 07/30/2022 20:22:35 06/17/2022 MAMMO, screening, digital, bilateral completed [id number] [facility] ([facility]) [address] [place], [address], 07/30/2022 20:22:35 06/24/2022 imaging/diagnostic result completed [id number] [facility] [address], [place], [address], 07/30/2022 20:22:35 05/19/2023 electrocardiogram completed [email or web address] [facility] [address], [place], [address], 05/19/2023 15:08:41 07/03/2023 US, lower extremity completed [email or web address] [facility] Main Out Patient Lab [address], [place], [address], 07/06/2023 16:52:31 07/30/2023 MAMMO, screening, digital, bilateral completed [email or web address] [facility] [address] [place], [address], 07/30/2023 15:25:15 Procedure Notes None recorded. Medical Equipment None Reported. Allergies No known drug allergies Medications Name Sig Start Date Stop Date Status Note LastModified by Organization Details LastModified Time doxycycline hyclate 100 mg capsule TAKE 1 CAPSULE BY MOUTH TWICE DAILY 07/16 completed Not Available Not Available Not Available oxybutynin chloride ER 10 mg tablet,exte nded release 24 hr Take 1 tablet every day by oral route. active Not Available Not Available No t Available ofloxacin 0.3 % eye drops INSTILL 1 DROP INTO RIGHT EYE EVERYDAY, USE FOR FLARE UPS active Not Available Not Available No t Available metoprolol succinate ER 50 mg tablet,exte nded release 24 hr one tablet by mouth BID 2023 active Not Available Not Available Not Avai lable phentermine 37.5 mg tablet Take 1 tablet every day by oral route for 30 days. active Not Available Not Available No t Available acyclovir 400 mg tablet active Not Available Not Available Not Available sulfamethox azole 800 mg-trimetho prim 160 mg tablet Take 1 tablet every 12 hours by oral route for 10 days. 07/16 completed Not Available Not Available Not Available omeprazole 40 mg capsule,del ayed release 09/02 completed Not Available Not Available Not Available aspirin 81 mg tablet,blanco yed release Take 1 tablet every day by oral route. 2017 active on hold- Not Available Not Available Not Available simvastatin 40 mg tablet TAKE 1 TABLET BY MOUTH EVERY DAY active Not Available Not Available No t Available famotidine 20 mg tablet active Not Available Not Available Not Available oxycodone-a cetaminophe n 10 mg-325 mg tablet TAKE 1-2 TABLETS BY MOUTH EVERY 6-8 HOURS NEEDED FOR 7 DAYS - MAX OF 6 TABLETS DAILY active Not Available Not Available No t Available simvastatin 20 mg tablet TAKE 1 TABLET BY MOUTH EVERY DAY 07/30 completed Not Available Not Available Not Available oseltamivir 75 mg capsule TAKE 1 CAPSULE BY MOUTH EVERY DAY FOR TEN DAYS 05/18 completed Not Available Not Available Not Available losartan 25 mg tablet TAKE 1 TABLET BY MOUTH EVERY DAY FOR 30 DAYS 09/02 completed Not Available Not Available Not Available diclofenac sodium 75 mg tablet,blanco yed release one tablet po BID prn 2023 active Not Available Not Available Not Avai lable lisinopril 5 mg tablet TAKE 1 TABLET BY MOUTH EVERY DAY 11/12 completed Not Available Not Available Not Available mupirocin 2 % topical ointment APPLY TO AFFECTED AREA OF EAR TWICE DAILY. 07/16 completed Not Available Not Available Not Available methylpredn isolone 4 mg tablets in a dose pack Use as directed 07/30 completed Not Available Not Available Not Available albuterol sulfate HFA 90 mcg/actuati on aerosol inhaler Inhale 2 puffs every 4 hours by inhalatio n route as needed. 09/02 completed Not Available Not Available Not Available losartan 50 mg-hydrochl orothiazide 12.5 mg tablet active Not Available Not Available Not Available metformin ER 500 mg tablet,exte nded release 24 hr TAKE 1 TABLET BY MOUTH EVERY DAY active Not Available Not Available No t Available progesteron e micronized 100 mg capsule TAKE 1 CAPSULE BY MOUTH EVERY MORNING FOR 21 DAYS 07/16 completed Not Available Not Available Not Available EstroGel 1.25 gram/actuat ion (0.06%) transdermal gel pump Apply 1 pump every day by topical route as directed for 30 days. 09/02 completed Not Available Not Available Not Available nitrofurant oin monohydrate /macrocryst als 100 mg capsule TAKE 1 CAPSULE BY MOUTH EVERY 12 HOURS FOR 7 DAYS 07/16 completed Not Available Not Available Not Available ibandronate 150 mg tablet TAKE 1 TABLET BY MOUTH ONCE A MONTH active Not Available Not Available No t Available Xarelto 15 mg tablet TAKE 1 TABLET BY MOUTH TWICE A DAY FOR 21 DAYS active Not Available Not Available No t Available Xarelto 20 mg tablet TAKE 1 TABLET BY MOUTH EVERY DAY FOR 30 DAYS active Not Available Not Available No t Available Shingrix (PF) 50 mcg/0.5 mL intramuscul ar suspension, kit ADM 0.5ML IM UTD 08/27 completed Not Available Not Available Not Available Fluzone Quad (PF) 60 mcg (15 mcg x 4)/0.5 mL IM syringe TO BE ADMINISTE RED BY PHARMACIS T FOR IMMUNIZAT ION 08/27 completed Not Available Not Available Not Available Rybelsus 3 mg tablet TAKE 1 TABLET BY MOUTH EVERY DAY 09/02 completed Not Available Not Available Not Available Fluzone Quad (PF) 60 mcg (15 mcg x 4)/0.5 mL IM syringe PHARMACY ADMINISTE RED 08/27 completed Not Available Not Available Not Available Paxlovid 300 mg (150 mg x 2)-100 mg tablets in a dose pack TAKE 3 TABLETS BY MOUTH 2 TIMES A DAY FOR 5 DAYS. 2 PINK & 1 WHITE IN THE MORNING AND EVENING 09/02 completed Not Available Not Available Not Available Vitals Date Recorded Body mass index (BMI) Body height Oxygen saturation Oxygen saturation in Arterial blood by Pulse oximetry Heart rate Body temperature Body weight Systolic blood pressure Diastolic blood pressure Provider Name and Address Organization Details Last Updated DateTime 2 30.6 kg/m2 160.02 cm 98 % 98 % 80 /min 97.2 [degF] 57206.4 8 g 170 mm[Hg] 90 mm[Hg] Not Available [facility] 3 20:20:09 Date Recorded Body height Body mass index (BMI) Body weight Body temperature Heart rate Oxygen saturation Oxygen saturation in Arterial blood by Pulse oximetry Systolic blood pressure Diastolic blood pressure Provider Name and Address Organization Details Last Updated DateTime 3 160.02 cm 29.9 kg/m2 29208.1 1 g 96.6 [degF] 72 /min 97 % 97 % 142 mm[Hg] 80 mm[Hg] OSMAN Garcia [facility] [employer] [facility] 3 10:57:29 Date Recorded Body height Body mass index (BMI) Body weight Body temperature Heart rate Oxygen saturation Oxygen saturation in Arterial blood by Pulse oximetry Systolic blood pressure Diastolic blood pressure Provider Name and Address Organization Details Last Updated DateTime 3 160.02 cm 29.6 kg/m2 47751.9 3 g 97.6 [degF] 76 /min 97 % 97 % 156 mm[Hg] 82 mm[Hg] Katerine Holt MA [facility] [employer] [facility] 3 14:49:13 Date Recorded Body height Body mass index (BMI) Body weight Body temperature Heart rate Oxygen saturation Oxygen saturation in Arterial blood by Pulse oximetry Systolic blood pressure Diastolic blood pressure Provider Name and Address Organization Details Last Updated DateTime 4 160.02 cm 28.9 kg/m2 19969.5 6 g 97.9 [degF] 69 /min 98 % 98 % 116 mm[Hg] 76 mm[Hg] Karen Mario RN [place] [facility] [place] [employer] [facility] 4 09:39:20 Social History Question Answer Notes LastModified by [employer] Details LastModified Time Tobacco Smoking Status Former Smoker Not Available [facility] 07/30/2022 20:19:33 What Is Your Level Of Alcohol Consumption? Moderate [id number] Information not available 07/30/2022 What Is Your Level Of Caffeine Consumption? Moderate [id number] Information not available 07/30/2022 Which Illicit Or Recreational Drugs Have You Used? None [id number] Information not available 07/30/2022 Do You Or Have You Ever Used E-cigarettes Or Vape? Never Used Electronic Cigarettes [id number] Information not available 07/30/2022 When Did You Quit Smoking? 6-10yearssince lastcigarette [id number] Information not available 07/30/2022 What Is Your Current Pack Years? 30ormorepackye ars [id number] Information not available 07/30/2022 At What Age Did You Start Smoking Tobacco? 12 [id number] Information not available 07/30/2022 How Much Tobacco Do You Smoke? 1 PPD [id number] Information not available 07/30/2022 Do You Or Have You Ever Used Any Other Forms Of Tobacco Or Nicotine? No [id number] Information not available 07/30/2022 Sex: Unknown Functional Status Question Answer Note LastModified by [employer] Details LastModified Time What is your exercise level? Occasional [id number] Information not available 07/30/2022 Mental Status None recorded. Family History Relationship Description Onset Age of this Age Resolved Age Notes LastModified by Organization Details LastModified Time Mother Hypertensive disorder [id number] Not available 07/30/2022 20:19:41 Mother Squamous cell carcinoma of lung [email or web address] Not available 07/16 09:26:40 Brother Hypertensive disorder [id number] Not available 07/30/2022 20:19:41 Sister Hypertensive disorder [id number] Not available 07/30/2022 20:19:41 Father Myocardial infarction [id number] Not available 07/30/2022 20:19:42 Maternal Grandmother Cerebrovascu lar accident [email or web address] Not available 09:26:40 Medical History Condition Response HYPERTENSION Y HIGH CHOLESTEROL / HYPERLIPIDEMIA Y Gynecological History Statement/Question Response Most Recent Mammogram 09/19/2020 Obstetrics History GPAL:G 0 P 0 0 0 0 Immunizations Vaccine Type Date Status Note Provider Nam e and Address Organization Details Recorded Time Influenza, split virus, quadrivalent, preservative 2 completed Not Available [facility] 07/30/2022 20:22:26 COVID-19, mRNA, LNP-S, PF, 100 mcg/0.5mL dose or 50 mcg/0.25mL dose 1 completed Not Available [facility] 07/30/2022 20:22:26 COVID-19, mRNA, LNP-S, PF, 100 mcg/0.5mL dose or 50 mcg/0.25mL dose 1 completed Not Available [facility] 07/30/2022 20:22:26 Influenza, split virus, quadrivalent, preservative 0 completed Not Available [facility] 07/30/2022 20:22:26 Pneumococcal conjugate PCV 13 1 completed Not Available [facility] 07/30/2022 20:22:27 Past Encounters Encounter ID Performer Location Encounter Start Date Encounter Closed Date Diagnosis/Indication Diagnosis SNOMED-CT Code Diagnosis ICD10 Code Diagnosis Note [id number] [facility] [place] [address] 08/27/2020 00:00:00 08/28/2020 08:29:49 [id number] [facility] Podiatry Alexi Minaya [address] [place] [address] 11/15/2020 00:00:00 11/15/2020 13:34:11 [id number] [facility] [address] [place] [address] 04/10/2021 00:00:00 04/10/2021 12:18:27 [id number] [facility] [place] [address] [place] [address] 04/22/2021 00:00:00 04/22/2021 15:30:05 [id number] [facility] [place] [address] [facility] [place] [address] 07/30/2021 00:00:00 07/30/2021 10:54:19 [id number] [facility] [place] [address] [facility] [place] [address] 09/02/2021 00:00:00 09/02/2021 10:27:07 [id number] [facility] [place] [address] [facility] [place] [address] 03/17/2022 00:00:00 03/17/2022 10:26:38 [id number] Mariposa Glover MD [facility] [place] [address] [facility] [place] [address] 09/02/2022 10:48:59 09/02/2022 11:11:34 Adult health examination 141058877 Z00.00 Screening for disorder 668790852 Z13.9 [id number] AYLA Connors [facility] [place] [address] [facility] [place] [address] 04/07/2023 15:26:21 04/10/2023 16:56:51 Dysuria 23684674 R30.0 [id number] AYLA Connors [facility] [place] [address] [facility] [place] [address] 05/19/2023 14:23:03 05/19/2023 15:31:27 Pre-surgery evaluation 353445472 Z01.818 Essential hypertension 30187309 I10 Hyperlipidemia 69699908 E78.5 Plantar fa sciitis of right foot 5312864918 5156998 M72.2 [id number] AYLA Connors [facility] [address] [facility] [address] 07/16/2023 09:26:00 07/16/2023 09:52:19 Transition of care [id number] 105 Z75.8 Deep venou s thrombosis 147993178 I82.409 Arthritis 8499608 M19.90 Essential hypertension 75653861 I10 Hyperlipidemia 82140505 E78.5 Osteopenia 826684557 M85 .80 Health Concerns Section Related Observation LastModified by Organization Detai ls LastModified Time None Recorded Concern Status LastModified by Organization Details LastModified Time None Recorded Advance Directives Directive None Recorded Payers Encounter Date Sequence Insurance Name Policy Number Policy Chavez Covered Member ID Chavez Member ID Guarantor Name 09/02/2022 1 [facility] (MEDICARE REPLACEMENT/A DVANTAGE - HMO) [id number] Mirta L Eric [id number] Mirta Eric 04/07/2023 1 [facility] (MEDICARE REPLACEMENT/A DVANTAGE - HMO) [id number] Mirta L Eric [id number] Mirta Eric 05/19/2023 1 [facility] (MEDICARE REPLACEMENT/A DVANTAGE - HMO) [id number] Mirta L Eric [id number] Mirta Eric 07/16/2023 1 [facility] (MEDICARE REPLACEMENT/A DVANTAGE - HMO) [id number] Mirta L Eric [id number] Mirta Eric Notes Date Note Type Note Provider Name and Address Organization Details Recorded Time 09/02/2022 text/html Here to [facility]. Having no issues other than knees having arthritis and got shots in both knees and has helped.Food is getting stuck she has had her esophagus stretched in the past.She had BW done in 03/22 and showed prediabetes. UTD with mammogram. Colonoscopy in 07/24. 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 Mariposa Glover MD [address] [place] [address] Demi, [facility] [address], [place], [address], [facility] [employer] 09/03/2022 06:19:53 05/19/2023 text/html here for catracho ce for surgery: Right total knee replacement AYLA Connors [address], [facility] [address], [place], [address], [employer] [facility] 05/30/2023 11:02:28 07/16/2023 text/html right knee replaced in June . DVT Xarelto AYLA Connors [address], [facility] [address], [place], [address], [employer] 07/25/2023 16:10:57 OBGyn Episode No OBEpisode recorded.
[2024-08-15 10:14] LABS: LDL Cholesterol Direct 73 mg/dL
[2024-08-15 10:42] LABS: Hemoglobin A1C 5.8 % (<5.7)
[2024-08-15 10:57] LABS: Vitamin D 25 Hydroxy 51.6 ng/mL
[2024-08-17 06:19] LABS: TSH QUEST 3.11 mIU/L (0.40-4.50)
== END 2024-08-15 09:17 | disposition home or self-care (01) ==
PROVIDERS: Anesthesiology; PCP Family Medicine; Visit Provider Obstetrics & Gynecology
DX: Z01.818 Encounter for other preprocedural examination (principal); E78.5 Hyperlipidemia, unspecified; R73.03 Prediabetes; E55.9 Vitamin D deficiency, unspecified; Z13.29 Encounter for screening for other suspected endocrine disorder
CPT/HCPCS: 36415; 80053; 80061; 82306; 83036; 84443; 85025

== ENCOUNTER 2024-08-18 01:50 | Day surgery (SDC) | payer MEDICARE, SELFPAY ==
[2024-08-12 13:46] VITALS: BMI 28.5
--- NOTE | 2024-08-12 14:11 | PC.NURSE ---
Report to the Outpatient Waiting Room, entrance under the green pavilion located off [facility], at time ___9:00AM____ on date ___08/18/24____. Planned Procedure Time: ___11:00AM .? Time changes happen often and if your time is changed the preop area will call you the afternoon before. - You and your visitor will be asked to self-screen and do not enter if you have any COVID symptoms. Please call surgeon if you need to reschedule. - A mask is optional within the hospital at this time. Patients may have clear liquids (water, carbonated beverages, clear teas, apple juice) until 3 hours prior to surgery (8:00AM) with a maximum of 20 ounces. - No food from midnight until time of surgery and no smoking, or chewing tobacco (or any form of nicotine). No chewing gum, candy or mints. Take only the following medications with a SIP of water on the morning of surgery: ____METOPROLOL. MAY TAKE ACYCLOVIR NEEDED. DO NOT STOP ANY OF YOUR OTHER PRESCRIPTION MEDICATIONS PRIOR TO SURGERY EXCEPT THE FOLLOWING Hold all vitamins and supplements for 3 days per anesthesiologist.-LAST DOSE 08/14/24 Medications to discontinue per physician ____HOLD ASPIRIN AND DICLOFENAC PER DR MONTIEL. Date to take last dose Please no make-up, nail kiswahili, hairspray, perfume, deodorant, or body powder the day of surgery.? No jewelry (including any body piercings) or valuables the day of surgery, leave them at home.? Please take a shower or bath the night before, or the morning of, surgery with an antibacterial soap.? Wear comfortable, loose fitting clothing.? - Jewelry must be removed prior to entering the operating room.? Rings and piercings that are not removed may be cut off. - The hospital will not accept responsibility for valuables.? - Please leave all valuables, including medications, at home the day of surgery. If you are going home after surgery, a licensed flatbed driver must drive you home.? - NO public transportation without another adult if you receive anesthesia. - We recommend that an adult stay with you for 24 hours following discharge. - We also recommend that you do not drive, make important decision, drink alcoholic beverages, or take any drugs that were not prescribed by your health care provider for at least 24 hours after your discharge time. Follow any additional instructions given to you from your surgeon. Telephone instructions given to ___PATIENT and asked if any additional questions and then verbalized understanding. Patient advised to call surgeon office or pre surgery nurse liaison [phone] if any additional questions.
--- NOTE | 2024-08-16 17:24 | WPDHPUPDATE1 ---
History and Physical Update Update Date/Time: 08/16/24 17:24 Ultrasound after last office visit revealed endometrial thickness of 13mm. She has continued without any bleeding or other symptoms, though with her sister passing way from endometrial cancer she is very concerned and strongly desires to have evaluation. Therefore we will be scheduling sampling. Assessment: 1. 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 Hysteroscopy with uterine curettings History and Physical has been reviewed, including an updated exam of the patient. There are NO changes in the patient's condition. Risks, benefits, and alternatives have been discussed and questions answered. Patient agrees to proceed with procedure.
--- OUTSIDE RECORDS SUMMARY | 2024-08-18 01:53 | XMS_ITS | Clinical Summary ---
Author Organization [facility] Address [address] [place] [address] Phone Care Team Providers Care [employer] Sales Representative Name Role Phone Mark Page MD Primary [...] 08/05/2024 Assessment & Plan (08/05/2024 6:05 AM BUTCHER ASSISTANT): Wt Readings from Last 3 Encounters: 08/04/24 [...] 08/04/2024 Assessment & Plan (08/05/2024 6:02 AM BUTCHER ASSISTANT): - New or chronic worsening conditions: no [...] order placed - control: Postmenopausal Prediabetes 08/04/2024 Overview (08/16/2024): A1c 5.8 on 08/23 Assessment & Plan (08/05/2024 6:01 AM BUTCHER ASSISTANT): -chronic, controlled -patient currently takes metformin 500 mg daily -reiterated importance of diabetic foot and eye exams -will recheck lab work -continue current treatment plan Vitamin D deficiency 08/04/2024 Overview (08/16/2024): Vitamin D 50+ 08/23 Assessment & Plan (08/05/2024 6:01 AM BUTCHER ASSISTANT): -chronic, controlled -patient currently takes vitamin D3 supplement -will recheck lab value -continue current treatment plan 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 Hypertension 06/14/2021 Assessment & Plan (08/05/2024 5:59 AM BUTCHER ASSISTANT): BP Readings from Last 3 Encounters: 08/04/24 135/85 05/15/17 130/72 05/13/16 120/86 -chronic, at goal of <140/90 -currently taking metoprolol 50 mg, losartan-hydrochlorothiazide 50-12.5 mg daily -patient reports checking blood pressure regularly at home -encourage patient to continue low-sodium diet -continue current treatment plan Lung mass 06/14/2021 Personal history of tobacco use 06/14/2021 Assessment & Plan (08/05/2024 6:04 AM BUTCHER ASSISTANT): Tobacco Use: Medium Risk (08/04/2024) Patient History Smoking Tobacco Use: Former Smokeless Tobacco Use: Never Passive Exposure: Not on file -stable, at goal -patient reports ongoing smoking cessation -patient educated on benefits of continued smoking cessation -continue current treatment plan -total time spent on tobacco cessation education 3 minutes Hyperlipidemia 03/29/2008 Overview (08/16/2024): Lab 08/23 Trig 168 LDL 73 Assessment & Plan (08/05/2024 5:58 AM BUTCHER ASSISTANT): -chronic, controlled -Previously prescribed simvastatin 20 mg -Discussed importance of well-balanced diet -will recheck lab values -continue current treatment plan Pulmonary nodule 03/29/2008 Encounters Date Type Department Care Team Description 08/16/2024 Results Follow-Up [facility] Primary Care at [address] [address] Mark Page MD 08/15/2024 Orders Only [facility] Health Information Management [address] [place] [address] Mark Page MD 08/05/2024 Telephone [facility] Primary Care at [address] [phone] Mark Page MD Appointment 08/04/2024 10:00 AM BUTCHER ASSISTANT Office Visit [facility] Primary Care at [address] [phone] Shyann Sullivan NP Establishing care with new [...] SARS-CoV-2 Monovalen t Vaccination (12+ YRS) 07/24/2020,06/26/2020 Pfizer Sars-Cov-2 Bivalent V accination (12+ YRS) 02/01/2024 [...] on file Legal Sex Female 2:08 AM BUTCHER ASSISTANT Gender Identity Not on file Sexual Orientation Not on file Obstetrics History Last Filed Vital Signs Vital Sign Reading Time Taken Comments Blood Pressure 135/85 08/04/2024 10:41 AM BUTCHER ASSISTANT typical blood pressure reading at home Pulse 67 08/04/2024 10:15 AM BUTCHER ASSISTANT Temperature 36.5 C (97.7 F) 08/04/2024 10:15 AM BUTCHER ASSISTANT Respiratory Rate 16 08/04/2024 10:1 5 AM BUTCHER ASSISTANT Oxygen Saturation 96% 08/04/2024 10: 15 AM BUTCHER ASSISTANT Inhaled Oxygen Concentration - - Weight 74 kg (163 lb 3.2 oz) 08/04/2024 10:15 AM BUTCHER ASSISTANT Height 160 cm (5' 2.99 ) 08/04/2024 10: 15 AM BUTCHER ASSISTANT Body Mass Index 28.92 08/04/2024 10:15 AM BUTCHER ASSISTANT Plan of Treatment Health Maintenance Due Date [...] 08/04/2025 08/04/2024 Well Visit 65+ 08/04/2025 08/04/2024, 0310/2024, 05/15/2017 Influenza Vaccine Completed 02/01/2024, , 03/05/2018, Additional history exists Procedures Procedure Name Priority Date/Time Associated Diagnosis Comments SCAN - LABS 08/15/2024 SCREENING MAMMOGRAM BILATERAL W SANTIAGO Schedule Routine, Read Routine (OP Routine) 09/19/2020 1:32 PM CDT Encounter for screening mammogram for malignant neoplasm of breast DEXA AXIAL SKELETON BONE DENSITY 1 OR MORE SITES Schedule Routine, Read Routine (OP Routine) 07/15/2019 11:08 AM BUTCHER ASSISTANT Screening for osteoporosis from Last 3 Months or Most Recently Relevant to Health Maintenance Results * SCAN - LABS (08/15/2024) Mark Page MD Final R esult * Screening Mammogram Bilateral W Santiago (09/19/2020 [...] for bilateral Overall Assessment: 1 - Negative Self Screening Mammogram IMG MAMMO PROCEDURES Fi nal Result * Dexa Axial Skeleton Bone Density 1 or 2 Site (07/15/2019 11:08 AM BUTCHER ASSISTANT) Anatomical Region Laterality Modality Body N/A Digital Radiogra phy 07/15/2019 11:1 5 AM BUTCHER ASSISTANT Impressions 07/15/2019 11:16 AM BUTCHER ASSISTANT Low bone mass (osteopenia) which depending on the clinical circumstances may result in a moderate increased risk of fragility fracture. If followup is to be done, for technical reasons, it should be performed on this same machine. Electronically signed by: Vinny Cordero M.D. [facility] 07/15/2019 11:16 AM BUTCHER ASSISTANT EXAM: Bone mineral density [facility]. HISTORY: Postmenopausal. Hormone replacement therapy. Calcium and vitamin D supplementation. Assess for osteoporosis. DXA BMD was done at [facility] on a HoloDejamor Discovery CI. Precision testing at this site [...] MD - 07/15/2019 EXAM: Bone mineral density [facility]. HISTORY: Postmenopausal. Hormone replacement therapy. Calcium and vitamin D supplementation. Assess for osteoporosis. DXA BMD was done at [facility] on a Hologic Discovery CI. Precision testing at this site [...] Relevant to Health Maintenance Insurance CHOICE PLUS [facility] HMO/PPO Address: [address] [address] [place] [address] MDCR HMO REF [facility] MEDICARE Address: [address] [address] [place] [address] MEDICARE SOLUTIONS [facility] MEDICARE Address: [facility] [address] [place] [address] Care Teams [employer] Sales Representative Relationship Specialty Start Date End Date Mark Page MD [address] [place] [address] DR LOGAN [address] [address] PCP - General Family Medicine 08/04/24
--- OUTSIDE RECORDS SUMMARY | 2024-08-18 01:53 | XMS_ITS | Referral Summary ---
Author Organization [facility] Address [address] [place] [address] Phone Care Team Providers Care Financial Services Director Name Role Phone Mark Page MD Primary Care Provider Encounters Date Type Department Care Team Description 08/16/2024 Results Follow-Up [facility] Medical Group Primary Care at [address] [phone] Mark Page MD 08/15/2024 Orders Only [facility] Health Information Management [address] [place] [address] Mark Page MD 08/05/2024 Telephone [facility] Medical Group Primary Care at [address] [place] [phone] Mark Page MD Appointment 08/04/2024 10:00 AM POCKET CLOSER Office Visit [facility] Medical Group Primary Care at [address] [place] [phone] Shyann Sullivan NP Establishing care with new [...] 08/05/2024 Assessment & Plan (08/05/2024 6:05 AM POCKET CLOSER): Wt Readings from Last 3 Encounters: 08/04/24 [...] 08/04/2024 Assessment & Plan (08/05/2024 6:02 AM POCKET CLOSER): - New or chronic worsening conditions: no [...] 08/23 Assessment & Plan (08/05/2024 6:01 AM POCKET CLOSER): -chronic, controlled -patient currently takes metformin 500 mg daily -reiterated importance of diabetic foot and eye exams -will recheck lab work -continue current treatment plan Vitamin D deficiency 08/04/2024 Overview (08/16/2024): Vitamin D 50+ 08/23 Assessment & Plan (08/05/2024 6:01 AM POCKET CLOSER): -chronic, controlled -patient currently takes vitamin D3 supplement -will recheck lab value -continue current treatment plan 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 Hypertension 06/14/2021 Assessment & Plan (08/05/2024 5:59 AM POCKET CLOSER): BP Readings from Last 3 Encounters: 08/04/24 135/85 05/15/17 130/72 05/13/16 120/86 -chronic, at goal of <140/90 -currently taking metoprolol 50 mg, losartan-hydrochlorothiazide 50-12.5 mg daily -patient reports checking blood pressure regularly at home -encourage patient to continue low-sodium diet -continue current treatment plan Lung mass 06/14/2021 Personal history of tobacco use 06/14/2021 Assessment & Plan (08/05/2024 6:04 AM POCKET CLOSER): Tobacco Use: Medium Risk (08/04/2024) Patient History [...] 73 Assessment & Plan (08/05/2024 5:58 AM POCKET CLOSER): -chronic, controlled -Previously prescribed simvastatin 20 mg [...] on file Legal Sex Female 2:08 AM POCKET CLOSER Gender Identity Not on file Sexual Orientation Not on file Last Filed Vital Signs Vital Sign Reading Time Taken Comments Blood Pressure 135/85 08/04/2024 10:41 AM POCKET CLOSER typical blood pressure reading at home Pulse 67 08/04/2024 10:15 AM POCKET CLOSER Temperature 36.5 C (97.7 F) 08/04/2024 10:15 AM POCKET CLOSER Respiratory Rate 16 08/04/2024 10:1 5 AM POCKET CLOSER Oxygen Saturation 96% 08/04/2024 10: 15 AM POCKET CLOSER Inhaled Oxygen Concentration - - Weight 74 kg (163 lb 3.2 oz) 08/04/2024 10:15 AM POCKET CLOSER Height 160 cm (5' 2.99 ) 08/04/2024 10: 15 AM POCKET CLOSER Body Mass Index 28.92 08/04/2024 10:15 AM POCKET CLOSER Plan of Treatment Not on file Procedures Procedure Name Priority Date/Time Associated Diagnosis Comments SCAN - LABS 08/15/2024 SCREENING MAMMOGRAM BILATERAL W SANTIAGO Schedule Routine, Read Routine (OP Routine) 09/19/2020 1:32 PM CDT Encounter for screening mammogram for malignant neoplasm of breast DEXA AXIAL SKELETON BONE DENSITY 1 OR MORE SITES Schedule Routine, Read Routine (OP Routine) 07/15/2019 11:08 AM POCKET CLOSER Screening for osteoporosis from Last 3 Months [...] 1 or 2 Site (07/15/2019 11:08 AM POCKET CLOSER) Anatomical Region Laterality Modality Body N/A Digital Radiogra phy 07/15/2019 11:1 5 AM POCKET CLOSER Impressions 07/15/2019 11:16 AM POCKET CLOSER Low bone mass (osteopenia) which depending on the clinical circumstances may result in a moderate increased risk of fragility fracture. If followup is to be done, for technical reasons, it should be performed on this same machine. Electronically signed by: Vinny Cordero M.D. [facility] 07/15/2019 11:16 AM POCKET CLOSER EXAM: Bone mineral density [facility]. HISTORY: Postmenopausal. Hormone replacement therapy. Calcium and vitamin D supplementation. Assess for osteoporosis. DXA BMD was done at [facility] on a HoloTaggify Discovery CI. Precision testing at this site [...] MD - 07/15/2019 EXAM: Bone mineral density [facility]. HISTORY: Postmenopausal. Hormone replacement therapy. Calcium and vitamin D supplementation. Assess for osteoporosis. DXA BMD was done at [facility] on a HoloTaggify Discovery CI. Precision testing at this site [...] Relevant to Health Maintenance Insurance CHOICE PLUS [employer] HMO REF MEDICARE SOLUTIONS Care Teams Financial Services Director Relationship Specialty Start Date End Date Mark Page MD [address] [place] [address] [address] LOG[address] [address] PCP - General Family Medicine 08/04/24
--- OUTSIDE RECORDS SUMMARY | 2024-08-18 01:53 | XMS_ITS | Clinical Summary ---
Author Organization [facility] [employer] Address [address] [place] [address] Care Team Providers Care Electric Meter Reader Name Role Phone Justin Dior CARRINGTON-REBAR FABRICATOR Primary Care Provider + Source Comments [facility],non-owned Affiliates and Associated Physician Practices is amultiple site organization consisting of ambulatory clinics and hospital sitesin [place], [place], [place] and [place]. This disclosure is being madepursuant to the Care Everywhere program and may not contain all information available regarding this patient. Last updated 18.[facility] [employer] Allergies Active Allergy Reactions Criticality Noted Date [...] MCG/ACT nasal sprayIndications:Ac roopa bronchitis, unspecified organism Julian 1 Julian into each nostril 2 times daily 1 [...] Comments Blood Pressure 114/78 06/25/2016 9:24 AM FISH S[employer]KER Pulse 89 06/25/2016 9:24 AM FISH SMOKER Temperature 37.4 C (99.4 F) 06/25/2016 9:24 AM FISH SMOKER Respiratory Rate 16 06/25/2016 9:24 AM FISH SMOKER Oxygen Saturation 96% 06/25/2016 9:24 AM FISH S[employer]KER Inhaled Oxygen Concentration - - Weight 74.8 kg (165 lb) 06/25/2016 9:24 AM FISH SMOKER Height 160 cm (5' 3 ) 06/25/2016 9:24 AM FISH SMOKER Body Mass Index 29.23 06/25/2016 9:24 AM FISH SMOKER Plan of Treatment Health Maintenance Due Date [...] PM CDT Narrative Resulting Agency Comment [facility] [address] [phone] Blas Lyons MD LAB - CHEMISTRY OR DERABLES [facility] ACCOUNT BILL from Last 3 Months or Most Recently Relevant to Health Maintenance Care Teams Electric Meter Reader Relationship Specialty Start Date End Date Dior Anderson APRN-PONCHO [address] [id number] PCP - General 01/28/21
--- OUTSIDE RECORDS SUMMARY | 2024-08-18 01:53 | XMS_ITS | Data Portability ---
Author Organization [facility] [employer], Main Office Address [address] [place] [address] Care Team Providers Care Lion Trainer Name Role Phone MARIPOSA CLAIRE Primary Care Provider [phone] MARIPOSA CLAIRE Referring Provider Assessment Encounter Date Assessment Date Assessment LastModified by Organization Details LastModified Time 07/16/2023 07/16/2023 I have reconciled the patient's medications post their discharge from inpatient facility. [email or web address] Not available 07/16/2023 09:28:51 Plan of Treatment Reminders Order Date Submit Date Provider Last Modified By Organization Details Last Modified Time Details Appointments None recorded. Lab hemoglobin A1C, fingerstick [address], [place], [address], 3 15:24:52 urinalysis, dipstick [address], [place], [address], 3 16:04:50 urinalysis, complete - do sensitiviti es 2022 023 [place] [facility] [address], [place], [address], 3 00:40:59 Referral None recorded. Procedures None recorded. Surgeries None recorded. Imaging electrocard iogram 2022 023 [email or web address] 2 [facility] [address], [place], [address], 3 15:31:27 Medication Orders Xarelto 20 mg tablet 2023 024 [facility] [id number] [facility], [address], [place], [address], 4 16:04:29 Patient TargetsNo targets recorded. Patient Instructions Encounter Date Encounter Id Patient Instructions Last Modified By Organization Details Last Modified Time 09/02/2022 [id number] dementia rating scale-2* Not available 09/02/2022 11:12:28 [...] Negative [email or web address] Not available 09/01/2022 12:02:21 05/19/2023 [id number] hgb A1c 6.4 , no increased risk of infection . is cleared for surgery [email or web address] Not available 05/30/2023 11:01:08 07/16/2023 [id number] Thank you for yo ur visit to [...] at home, please call us to discuss. [email or web address] Not available 07/16/2023 09:28:52 Homebound Status : {{Patient has an inability to leave the home without a taxing effort and assistance from another person Does not meet homebound status}} Required Home Health Services: {{none senior living, physical therapy, occupational therapy senior living, physical therapy senior living}} Durable Medical Equipment needed: {{cane walker walke r with seat manual wheelchair bedside commode oxygen}} Billing Guidelines CPT code 38902- Transitional Care Management services with moderate medical decision complexity (ogrh-kd-jlxk visit within 14 days of discharge). CPT code 30036- Transitional Care Management services with high medical decision complexity (lbhx-ye-ises visit within 7 days of discharge). Not [...] diabe prosper for child mi. Not Available [address] [address] [place], [address], 03/22/2022 10:14:18 03/21/2003/22/2022 HEPAT IC FUNCT ION PANEL bilirubin, total 0.5 mg/dL 0.2-1. 2 normal Not Available [address] [address] [place], [address], 03/22/2022 10:14:17 03/21/20 22 03/22/2022 HEPAT IC FUNCT ION PANEL bilirubin, direct 0.1 mg/dL < or = 0.2 normal Not Available [facility] [address] [address] [place], [address], 03/22/2022 10:14:17 03/21/20 22 03/22/2022 HEPAT IC FUNCT ION PANEL bilirubin, indirect 0.4 mg/dL _(hakeem c) 0.2-1. 2 normal Not Available [facility] [address] [address] [place], [address], 03/22/2022 10:14:17 03/21/20 22 03/22/2022 HEPAT IC FUNCT ION PANEL alkaline phosphatase 53 U/L 37-153 normal Not Available [address], [address], 03/22/2022 10:14:17 03/21/20 22 03/22/2022 HEPAT IC FUNCT ION PANEL AST 20 U/L 10-35 normal Not Available [address], [address], 03/22/2022 10:14:17 03/21/20 22 03/22/2022 HEPAT IC FUNCT ION PANEL ALT 24 U/L 6-29 normal Not Available [address], [address], 03/22/2022 10:14:17 03/21/20 22 03/22/2022 HEPAT IC FUNCT ION PANEL protein, total 6.9 g/dL 6.1-8. 1 normal Not Available [address], [address], 03/22/2022 10:14:17 03/21/2003/22/2022 HEPAT IC FUNCT ION PANEL albumin 4.6 g/dL 3.6-5. 1 normal Not Available [address], [address], 03/22/2022 10:14:17 03/21/20 22 03/22/2022 HEPAT IC FUNCT ION PANEL globulin 2.3 g/dL_ (calc ) 1.9-3. 7 normal Not Available [address], [address], 03/22/2022 10:14:17 03/21/20 22 03/22/2022 HEPAT IC FUNCT ION PANEL albumin/glob ulin ratio 2.0 (calc ) 1.0-2. 5 normal Not Available [address], [address], 03/22/2022 10:14:17 03/21/2003/22/2022 BASIC METAB OLIC PANEL glucose 99 mg/dL 65-99 normal Fasti ng refer ence inter christiano Not Available [address], [address], 03/22/2022 10:14:16 03/21/2003/22/2022 BASIC METAB OLIC PANEL urea nitrogen (BUN) 20 mg/dL 7-25 normal Not Available [address], [address], 03/22/2022 10:14:16 03/21/2003/22/2022 BASIC METAB OLIC PANEL creatinine 0.85 mg/dL 0.50-1 .05 normal Not Available [address], [address], 03/22/2022 10:14:16 03/21/20 22 03/22/2022 BASIC METAB OLIC PANEL eGFR 76 mL/mi n/1.7 3m2 > or = 60 normal The eGFR is based on the CKD-E PI 2020 equat ion. To calcu late the new eGFR from a previ ous Creat inine or Cysta tin C resul t, go to https ://buddy jasmine.dionna morton/gracia carrillo s/ kdoqi /gfr% 5Fcal culat or Not Available [address], [address], 03/22/2022 10:14:16 03/21/20 22 03/22/2022 BASIC METAB OLIC PANEL BUN/creatini ne ratio not applic able (calc ) 6-22 Not Available [address], [address], 03/22/2022 10:14:16 03/21/20 22 03/22/2022 BASIC METAB OLIC PANEL sodium 141 mmol/ L 135-14 6 normal Not Available [address] [place], [address], 03/22/2022 10:14:16 03/21/2003/22/2022 BASIC METAB OLIC PANEL potassium 4.6 mmol/ L 3.5-5. 3 normal Not Available [address], [address], 03/22/2022 10:14:16 03/21/2003/22/2022 BASIC METAB OLIC PANEL chloride 105 mmol/ L 98-110 normal Not Available [address], [address], 03/22/2022 10:14:16 03/21/2003/22/2022 BASIC METAB OLIC PANEL carbon dioxide 24 mmol/ L 20-32 normal Not Available [address], [address], 03/22/2022 10:14:16 03/21/2003/22/2022 BASIC METAB OLIC PANEL calcium 9.4 mg/dL 8.6-10 .4 normal Not Available [address], [address], 03/22/2022 10:14:16 03/21/2003/22/2022 LIPID PANEL , STAND VIELKA cholesterol, total 159 mg/dL <200 normal Not Available [address], [address], 03/22/2022 10:14:16 03/21/2003/22/2022 LIPID PANEL , STAND VIELKA HDL cholesterol 49 mg/dL > or = 50 low Not Available [address], [address], 03/22/2022 10:14:16 03/21/20 22 03/22/2022 LIPID PANEL , STAND VIELKA triglyceride s 139 mg/dL <150 normal Not Available [address], [address], 03/22/2022 10:14:16 03/21/20 22 03/22/2022 LIPID PANEL [...] 310(1 9): 2061- 2068 (http ://ed ucati on.[employer]. com/f aq/FA Q164) Not Available [employer] [facility] [address] [place], [address], 03/22/2022 10:14:16 03/21/20 22 03/22/2022 LIPID PANEL , STAND VIELKA chol/HDLC ratio 3.2 (calc ) <5.0 normal Not Available [facility] [address] [facility] [place], [address], 03/22/2022 10:14:16 03/21/20 22 03/22/2022 LIPID PANEL , STAND VIELKA non HDL cholesterol 110 mg/dL _(hakeem c) <130 normal For patie nts with diabe prosper plus 1 major ASCVD risk facto r, treat ing to a non-H DL-C goal of <100 mg/dL (LDL- C of <70 mg/dL ) is erlinda andrews c optio n. Not Available [facility] [address] [facility] [place], [address], 03/22/2022 10:14:16 04/07/20 23 04/07/2023 urina lysis , dipst ick Leukocytes (reference range: negative maureen/ l) Small Not Available [address], [place], [address], 04/07/2023 15:35:26 04/07/20 23 04/07/2023 urina lysis , dipst ick Nitrite (reference rage: negative mg/dl) negati ve Not Available [address], [place], [address], 04/07/2023 15:35:26 04/07/20 23 04/07/2023 urina lysis , dipst ick Urobilinogen (reference range: 0.2-1 mg/dl) 0.2 Not Available [address] [place], [place], [address], 04/07/2023 15:35:26 04/07/20 23 04/07/2023 urina lysis , dipst ick Protein (reference range: negative mg/dl) Negati ve Not Available [address]ayan[address], [place], [address], 04/07/2023 15:35:26 04/07/20 23 04/07/2023 urina lysis , dipst ick pH (reference range: 5-7) 6.5 Not Available [address]ayanan, [place], [address], 04/07/2023 15:35:26 04/07/20 23 04/07/2023 urina lysis , dipst ick Blood (reference range: negative Gerber/ l) Small Not Available [address], [place], [address], 04/07/2023 15:35:26 04/07/20 23 04/07/2023 urina lysis , dipst ick Specific [place] (reference range: 1.005-1.030) 1.015 Not Available [address]ayan[address], [place], [address], 04/07/2023 15:35:26 04/07/20 23 04/07/2023 urina lysis , dipst ick Ketone (reference range: negative mg/dl) Negati ve Not Available [address], [place], [address], 04/07/2023 15:35:26 04/07/20 23 04/07/2023 urina lysis , dipst ick Bilirubin (reference range: negative mg/dl) Negati ve Not Available [address], [place], [address], 04/07/2023 15:35:26 04/07/20 23 04/07/2023 urina lysis , dipst ick Glucose (reference range: negative mg/dl) Negati ve Not Available [address]ayan[address], [place], [address], 04/07/2023 15:35:26 04/07/20 23 04/07/2023 urina lysis , dipst ick Appearance Clear Not Available [address], [place], [address], 04/07/2023 15:35:26 04/07/20 23 04/07/2023 urina lysis , dipst ick Color Yellow Not Available [address], [place], [address], 04/07/2023 15:35:26 05/19/20 23 05/19/2023 hemog lobin A1C, finge rstic k HgbA1C 6.4 Not Available [facility] [address] [place], [place], [address], 05/19/2023 15:08:48 06/17/19 23 06/17/2022 MAMMO , scree fab, bilat eral No observ ation record ed. [id number] [facility] Orders [address], [place], [address], 07/30/2022 20:22:35 06/17/19 MAMMO , scree fab, digit al, bilat eral [facility] [address] [facility] [address], [place] [address] [phone] Patien t Name: MIRTA ORTEGA Jose M Access ion #: [id number] Sex: F : 1955 5 [birth year] [...] tion are seen. Page 1 of 2 [facility] Patien t Name: MIRTA ORTEGA Jose M Access ion #: [id number] Sex: F : 1955 5 [birth year] [...] ed [facility]. A negati ve mammog micah report [...] PM (CT) Page 2 of 2 MIGRATION. [facility] (Imaging) [address] [place], [address], 07/30/2022 20:22:35 06/24/19 23 06/24/2022 imagi ng/di annabelos lilly wh[facility] No observ ation record ed. MIGRATION. [address], [place], [address], 07/30/2022 20:22:35 06/24/19 23 06/24/2022 imagi ng/di agnos lilly whiting No observ ation record ed. [id number] [facility] [address] [facility] [address] [address], [place], [address], 07/30/2022 20:22:35 05/19/20 23 abigail royal am No observ ation record ed. [facility] [address], [place], [address], 05/19/2023 15:08:41 07/06/19 24 07/03/2023 , [facility] No observ ation record ed. [email or web address] On license of [facility] Main Out Patient Lab [address], [place], [address], 07/06/2023 16:52:31 07/30/19 24 07/30/2023 MAMMO , scree fab, digit al, bilat eral No observ ation record ed. [email or web address] [facility] [address] [place], [address], 07/30/2023 15:25:15 Result Notes None recorded. Problems Name Problem SNOMED Code Status Onset Date Resolution Date Notes Provider Name and Address Organization Details Recorded Time Plantar fasciitis of right foot 8448040723716 9101 Active 2020 Not Available [employer] 3 17:11:07 Constipati on 41192849 Active 2021 Not Available [employer] 3 17:11:07 Lung mass 991580524 Active 2021 Not Available [employer] 3 17:11:07 Osteopenia 538113173 Active 2020 Not Available [employer] 3 17:11:07 Pain in right foot 0733733391166 07 Active 2020 Not Available [employer] 3 17:11:07 Aneurysm of renal artery 34663459 Active 2021 Not Available [employer] 3 17:11:07 Former heavy tobacco smoker 3899538233666 00 Active 2020 Not Available [employer] 3 17:11:07 Hyperlipid emia 07117937 Active 2019 Not Available [facility] 3 17:11:07 Essential hypertensi on 02025826 Active 2021 Not Available [facility] 3 17:11:07 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 Not Available [facility] 3 17:11:07 Arthritis 9571440 Active 2022 Not Available [facility] 3 17:11:07 Dysuria 11538300 Active 2022 AYLA Connors [address], [place], [address] , [employer] 3 15:35:17 Acute urinary tract infection 217395011 Active 2022 AYLA Connors [address], [place], [address] , [employer] 3 16:29:11 Pre-surger y evaluation Active 2022 AYLA Connors [address], [place], [address] , [employer] 3 15:07:34 Deep venous thrombosis 088696591 Active 2023 Right knee AYLA Connors [address], [place], [address] , [employer] 4 09:48:46 Problem Notes None recorded. Procedures Surgical History Date Name Laterality Status Provider Name and Address Organization Details Recorded Time 07/30/19 24 screening mammography completed Marilee Lindsey RN [employer] 07/30/2023 15:25:11 07/16/19 24 Transitional_Care_ Management completed Karen Mario RN [facility] [employer] 07/16/2023 09:28:52 06/18/19 24 Knee Replacement completed Karen Mario RN [facility] [employer] 07/16/2023 09:36:45 09/03/19 23 Medicare Wellness CPT Code, Initial completed Luz Marina Whitney RN [facility] [employer] 09/01/2022 11:57:10 09/20/19 21 Most Recent Mammogram completed Not Available [facility] 07/30/2022 20:19:40 06/01/19 21 cardiac catheterization completed SOY Tee [facility] [employer] 07/16/2023 09:37:38 Imaging Results Imaging Date Name Status LastModified by Organization Details LastModified Time 06/24/2022 imaging/diagnostic result completed [id number] [facility] [address] [facility] [address], [place], [address], 07/30/2022 20:22:35 06/17/2022 MAMMO, screening, bilateral completed [id number].[id number] 75221 [facility] Add On Lab Orders [address] [place], [address], 07/30/2022 20:22:35 06/17/2022 MAMMO, screening, digital, bilateral completed [id number] [facility] (Imaging) [address] [place], [address], 07/30/2022 20:22:35 06/24/2022 imaging/diagnostic result completed MIGRATION.[id number] [facility] [address] [facility] [facility] [address], [place], [address], 07/30/2022 20:22:35 05/19/2023 electrocardiogram completed [email or web address] [facility] [address], [place], [address], 05/19/2023 15:08:41 07/03/2023 US, lower extremity completed [email or web address] [facility] Main Out Patient Lab [address], [place], [address], 07/06/2023 16:52:31 07/30/2023 MAMMO, screening, digital, bilateral completed [email or web address] [facility] [address] [place], [address], 07/30/2023 15:25:15 Procedure Notes None recorded. Medical [...] % 98 % 80 /min 97.2 [degF] 12079.4 8 g 170 mm[Hg] 90 mm[Hg] Not Available [facility] 3 20:20:09 Date Recorded Body height Body mass index (BMI) Body weight Body temperature Heart rate Oxygen saturation Oxygen saturation in Arterial blood by Pulse oximetry Systolic blood pressure Diastolic blood pressure Provider Name and Address Organization Details Last Updated DateTime 3 160.02 cm 29.9 kg/m2 44859.1 1 g 96.6 [degF] 72 /min 97 % 97 % 142 mm[Hg] 80 mm[Hg] OSMAN Garcia [facility] [employer] [facility] 3 10:57:29 Date Recorded Body height Body mass index (BMI) Body weight Body temperature Heart rate Oxygen saturation Oxygen saturation in Arterial blood by Pulse oximetry Systolic blood pressure Diastolic blood pressure Provider Name and Address Organization Details Last Updated DateTime 3 160.02 cm 29.6 kg/m2 33011.9 3 g 97.6 [degF] 76 /min 97 % 97 % 156 mm[Hg] 82 mm[Hg] Katerine Holt MA [facility] [employer] [facility] 3 14:49:13 Date Recorded Body height Body mass index (BMI) Body weight Body temperature Heart rate Oxygen saturation Oxygen saturation in Arterial blood by Pulse oximetry Systolic blood pressure Diastolic blood pressure Provider Name and Address Organization Details Last Updated DateTime 4 160.02 cm 28.9 kg/m2 33794.5 6 g 97.9 [degF] 69 /min 98 % 98 % 116 mm[Hg] 76 mm[Hg] Karen Mario RN [place] [facility] [employer] [facility] 4 09:39:20 Social History Question Answer Notes LastModified by App [employer] Details LastModified Time Tobacco Smoking Status Former Smoker Not Available [facility] 07/30/2022 20:19:33 What Is Your Level Of Alcohol Consumption? Moderate [id number] Information not available 07/30/2022 What Is Your Level Of Caffeine Consumption? Moderate MIGRATION.[id number] Information not available 07/30/2022 Which Illicit Or Recreational Drugs Have You Used? None MIGRATION.[id number] Information not available 07/30/2022 Do You Or Have You Ever Used E-cigarettes Or Vape? Never Used Electronic Cigarettes MIGRATION.[id number] 7995 Information not available 07/30/2022 When Did You Quit Smoking? 6-10yearssince lastcigarette MIGRATION.335547 0414 Information not available 07/30/2022 What Is Your Current Pack Years? 30ormorepackye ars MIGRATION.107257 1193 Information not available 07/30/2022 At What Age Did You Start Smoking Tobacco? 12 MIGRATION.628985 5447 Information not available 07/30/2022 How Much Tobacco Do You Smoke? 1 PPD MIGRATION.493317 6062 Information not available 07/30/2022 Do You Or Have You Ever Used Any Other Forms Of Tobacco Or Nicotine? No MIGRATION.389046 8442 Information not available 07/30/2022 Sex: Unknown Functional Status Question Answer Note LastModified by Organizat [employer] Details LastModified Time What is your exercise level? Occasional [id number] Information not available 07/30/2022 Mental Status None recorded. Family History Relationship Description Onset Age of this Age Resolved Age Notes LastModified by Organization Details LastModified Time Mother Hypertensive disorder [id number] Not available 07/30/2022 20:19:41 Mother Squamous cell carcinoma of lung [email or web address] Not available 07/16 09:26:40 Brother Hypertensive disorder [id number].429 [id number] Not available 07/30/2022 20:19:41 Sister Hypertensive disorder [id number].284 [id number] Not available 07/30/2022 20:19:41 Father Myocardial infarction MIGRATION.296 [id number] Not available 07/30/2022 20:19:42 Maternal Grandmother Cerebrovascu lar accident [email or web address] Not available 09:26:40 Medical History Condition Response HYPERTENSION Y HIGH CHOLESTEROL / HYPERLIPIDEMIA Y Gynecological History Statement/Question Response Most Recent Mammogram 09/19/2020 Obstetrics History GPAL:G 0 P 0 0 0 0 Immunizations Vaccine Type Date Status Note Provider Nam e and Address Organization Details Recorded Time Influenza, split virus, quadrivalent, preservative 2 completed Not Available [facility] 07/30/2022 20:22:26 COVID-19, mRNA, LNP-S, PF, 100 mcg/0.5mL dose or 50 mcg/0.25mL dose 1 completed Not Available [facility] 07/30/2022 20:22:26 COVID-19, mRNA, LNP-S, PF, 100 mcg/0.5mL dose or 50 mcg/0.25mL dose 1 completed Not Available [facility] 07/30/2022 20:22:26 Influenza, split virus, quadrivalent, preservative 0 completed Not Available [facility] 07/30/2022 20:22:26 Pneumococcal conjugate PCV 13 1 completed Not Available [facility] 07/30/2022 20:22:27 Past Encounters Encounter ID Performer Location Encounter Start Date Encounter Closed Date Diagnosis/Indication Diagnosis SNOMED-CT Code Diagnosis ICD10 Code Diagnosis Note [id number] [facility] [place] [address] 08/27/2020 00:00:00 08/28/2020 08:29:49 [id number] [facility] Alexi Minaya [address] [place] [address] 11/15/2020 00:00:00 11/15/2020 13:34:11 [id number] [facility] To[address] [place] [address] 04/10/2021 00:00:00 04/10/2021 12:18:27 [id number] [facility] [place] [address] [place] [address] 04/22/2021 00:00:00 04/22/2021 15:30:05 [id number] [facility] [place] [address] [facility] [place] [address] 07/30/2021 00:00:00 07/30/2021 10:54:19 [id number] [facility] [place] [address] [facility] [place] [address] 09/02/2021 00:00:00 09/02/2021 10:27:07 [id number] [facility] [place] [address] [facility] [place] [address] 03/17/2022 00:00:00 03/17/2022 10:26:38 [id number] Mariposa Glover MD [facility] [place] [address] [facility] [place] [address] 09/02/2022 10:48:59 09/02/2022 11:11:34 Adult health examination 237477737 Z00.00 Screening for disorder 576378987 Z13.9 [id number] AYLA Connors [facility] [place] [address] [facility] [place] [address] 04/07/2023 15:26:21 04/10/2023 16:56:51 Dysuria 69581098 R30.0 [id number] AYLA Connors [facility] [place] [address] [facility] [place] [address] 05/19/2023 14:23:03 05/19/2023 15:31:27 Pre-surgery evaluation 778975058 Z01.818 Essential hypertension 11635583 I10 Hyperlipidemia 87726530 E78.5 Plantar fa sciitis of right foot 0305386424 9984536 M72.2 [id number] AYLA Connors [facility] [address] [place] [address] [facility] [place] [address] 07/16/2023 09:26:00 07/16/2023 09:52:19 Transition of care 1306340932 105 Z75.8 Deep venou s thrombosis 769593628 I82.409 Arthritis 4302706 M19.90 Essential hypertension 31937303 I10 Hyperlipidemia 79552608 E78.5 Osteopenia 902574360 M85 .80 Health Concerns Section Related Observation LastModified by Organization Detai ls LastModified Time None Recorded Concern Status LastModified by Organization Details LastModified Time None Recorded Advance Directives Directive None Recorded Payers Encounter Date Sequence Insurance Name Policy Number Policy Chavez Covered Member ID Chavez Member ID Guarantor Name 09/02/2022 1 [facility] (MEDICARE REPLACEMENT/A DVANTAGE - HMO) [id number] Mirta L Eric [id number] Mirta Eric 04/07/2023 1 [facility] (MEDICARE REPLACEMENT/A DVANTAGE - HMO) [id number] Mirta L Eric [id number] Mirta Eric 05/19/2023 1 [facility] (MEDICARE REPLACEMENT/A DVANTAGE - HMO) [id number] Mirta L Eric [id number] Mirta Eric 07/16/2023 1 [facility] (MEDICARE REPLACEMENT/A DVANTAGE - HMO) [id number] Mirta L Eric [id number] Mirta Eric Notes Date Note Type Note [...] on spleen and kidney. Mariposa Glover MD [address] [place] [address] [employer], [facility] [address], [place], [address], [facility] [employer] 09/03/2022 06:19:53 05/19/2023 text/html here for catracho ce for surgery: Right total knee replacement AYLA Connors [address], [facility] [address], [place], [address], [employer] [facility] 05/30/2023 11:02:28 07/16/2023 text/html right knee replaced in June . DVT Xarelto AYLA Connors [address], [facility] [address], [place], [address], [employer] 07/25/2023 16:10:57 OBGyn Episode No OBEpisode recorded.
--- OUTSIDE RECORDS SUMMARY | 2024-08-18 01:53 | XMS_ITS | Encounter Summary ---
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 Gender Identity Not on file Sexual Orientation Not on file documented as of this encounter Plan of Treatment Not on file documented as of this encounter Procedures Procedure Name Priority Date/Time Associated Diagnosis Comments SCAN - LABS 08/15/2024 documented in this encounter Results * SCAN - LABS (08/15/2024) us Mark Page MD Final R esult documented in this encounter Visit Diagnoses Not on filedocumented in this encounter Care Teams Camp Head Counselor Relationship Specialty Start Date End Date Mark Page MD [address] [place] [address] DR LOGAN A [facility] [address] [place] [address] PCP - General Family Medicine 08/04/24 documented as of this encounter
--- OUTSIDE RECORDS SUMMARY | 2024-08-18 01:54 | XMS_ITS | CONTINUITY OF CARE DOCUMENT ---
Author Name leticia kelly Address Unknown Organization [facility] Address [address] [facility] [address] [place] [address] Phone [phone] Care Team Providers Care Potato Seed Cutter Name Role Phone Chi MORALEZ, Gildardo Unavailable SERENE PENN Unavailable STACY BECKER MD Unavailable [...] In-person encounter Office Visit Jayro Martinez DO [facility] - In-person encounter Office Visit Quang Marcus MD [facility] Preoperative cardiovascular examination - In-person encounter Office Visit Gildardo Mireles MD [facility] - In-person encounter Office Visit Gildardo Mireles MD [facility] Left renal artery aneurysm, 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 - In-person encounter Office Visit Gildardo Mireles MD [facility] Cardiology examinationHyperlipidemiaLeft renal artery aneurysm, small [...] moon pulse rate 72 /min Iliana Yanes [facility] weight E&M 168 [lb_av] Iliana Yanes [facility] height E&M 63 [in_i] Iliana Farzana [facility] Body Mass Index (Ratio) 31.07 kg/m2 Zulema [...] blood pressure, diastolic 105 mm[Hg] Ca therine [facility] blood pressure, systolic 164 mm[Hg] Cat herine [facility] oxygen saturation, oximetry 97 % Liana [facility] respiratory rate E&M 14 /min Catheri ne [facility] pulse rate 64 /min Liana [facility] weight E&M 178 [lb_av] Liana Osbaldo blood pressure, cuff size regular Ca therine [facility] height E&M 63 [in_i] Liana [facility] Body Mass Index (Ratio) 31.53 kg/m2 Jose Villegas blood pressure, cuff size large Mi alvin [place] blood pressure, diastolic 100 mm[Hg] Mi alvin [place] blood pressure, systolic 160 mm[Hg] Sage helle [place] pulse rate 88 /min Fanny cool oxygen [...] High 6 cholesterol, serum 193 mg/dL [facility] [phone]/01/2 6 calcium, serum 10.1 mg/dL [facility] 8.7-10.3 6 carbon dioxide, venous blood 26 mmol/L [employer] 20-29 6 chloride, serum 99 mmol/L [employer] 96-106 6 potassium, serum 4.3 mmol/L [employer] 3.5-5.2 6 sodium, serum 139 mmol/L [employer] [phone]/01/2 6 urea nitrogen/creatinin e ratio, serum 25 [...] Estab. 6 platelet count 302 X10E3/UL [employer] [phone]/01/2 6 red blood cell distribution width 12.1 [...] Policy type / Coverage type Marlene red democrat ID AARP MEDICARE ADVANTAGE HMO-POS HMO [id number] ADVANCE DIRECTIVES Name Date DISCUSSED - NO DECISION MADE TREATMENT PLAN Date Name Performer [id number],C,B P elevated today at 159/95. Advised reduced sodium intake and routine monitoring of the blood pressure. We aim for less than 130/80. Gildardo Mireles MD [id number],S, F ollowed by CT chest yearly. Gildardo Mireles MD [id number],C, S /p recent renal and celiac angiogram showing small left renal artery aneurysm, 10-20% stenosis of the mid right renal artery, and normal celiac artery angiogram with a tortuous splenic artery but no aneurysm was noted. Recent CT showed 1.2 cm aneurysm. We will continue to monitor with a yearly CT of the abdomen. Gildardo Mireles MD [id number],S, O n simvastatin. Recent LDL 114. Gildardo Mireles MD [id number],S, S /p recent renal and celiac angiogram showing small left renal artery aneurysm, 10-20% stenosis of the mid right renal artery, and normal celiac artery angiogram with a tortuous splenic artery but no aneurysm was noted. We will repeat her renal CTA in 1 year. Gildardo Mireles MD [id number],C, B P today 164/105. Advised routine home BP monitoring and dietary sodium restriction. Gildardo Mireles MD [id number],S, O n simvastatin. Recent LDL 114. Gildardo Mireles MD [id number],S, S /p recent renal and celiac angiogram showing small left renal artery aneurysm, 10-20% stenosis of the mid right renal artery, and normal celiac artery angiogram with a tortuous splenic artery but no aneurysm was noted. Gildardo Mireles MD [id number],S,O n simvastatin. Will obtain a recent lipid panel from your office. Prateek Mccormickhenok [id number],C,Followed by [place] [facility] chest yearly. Gildardo Mireles MD [id number],C,A ngiogram to evaluate the aneurysm explained. Gildardo Mireles MD [id number],C, I ncidental finding of left renal artery aneurysm on CT scan. No symptoms. Will arrange a renal angiogram to evaluate the size of aneurysm. Details of angiogram discussed with patient. Risk and benefits explained.to patient and .Agreeable to proceed. Gildardo Mireles MD [id number],[place], T he blood pressure medications were recently increased by her primary care. Will monitor BP and adjust antihypertensives. Gildardo Mireles MD [id number],[place], W ill discuss this with interventionalist and vascular surgeon. Gildardo Mireles MD [id number],[place], I f the patient is asymptomatic, will discuss this with interventionalist and vascular surgeon. Gildardo Mireles MD [id number],[place], T he blood pressure medications were recently [...] Will monitor BP and adjust antihypertensives. Gildardo Mirlees MD Cardiology: W ill discuss this with [...]
--- OUTSIDE RECORDS SUMMARY | 2024-08-18 01:54 | XMS_ITS | Continuity of Care Document ---
Author Organization [facility] Address [address] [place] [address] Phone Care Team Providers Care Manager Ed Name Role Phone Ira Nichols MD Unavailable Unavailable Advance Directives Directive Yes / No Effective Date File Name No Information Encounters Encounter Description Practice Location Reason(s) For Visit Diagnoses Date Provider Providers Copied on Encounter [facility], [address], [place], [place], [id number], tel:[phone] [facility] No Information Magdalena Roth. [address] [place] [address], [id number], . tel:[phone] Family History Family Member Type Diagnosis Age [...]
--- NOTE | 2024-08-18 07:15 | WPDHPUPDATE1 ---
History and Physical Update Update Date/Time: 08/18/24 07:15 History and Physical has been reviewed, including an updated exam of the patient. There are NO changes in the patient's condition. Risks, benefits, and alternatives have been discussed and questions answered. Patient agrees to proceed with procedure.
[2024-08-18 09:16] LABS: Glucose Point of Care 95 mg/dl (65-105)
[2024-08-18 09:32] VITALS: BP 153/63; PULSE 66; RESP 14; TEMP 36.9; O2SAT 100; BMI 28.7
[2024-08-18] MEDS: ACETAMINOPHEN 500 MG TABLET 1000 MG PO (09:40)
[2024-08-18] MEDS: LACTATED RINGERS 1,000 ML 30 ML IV CONT (09:50)
--- NOTE | 2024-08-18 09:59 | P.PNAN_ITS ---
Anes - Initial Pre Proc Eval Procedure: Operation Date: 08/18/24 11:00 Proposed Procedures p Hysteroscopy Dilation and Curettage - Serjio Shi MD Date/Time: 08/18/24 09:59 Surgeon: Serjio Shi MD Pre Op Diagnosis: Post Menopasual Bleeding Patient Data Age: 69 Gender: F Height: 1.6 m Weight: 73.6 kg Last Vital Signs Temp 36.9 C 08/18/24 09:32 Pulse 66 08/18/24 09:32 Resp 14 08/18/24 09:32 BP 153/63 H 08/18/24 09:32 Pulse Ox 100 08/18/24 09:32 O2 Del Method Room Air 08/18/24 09:32 Allergies Allergy/AdvReac Type Severity Reaction Status Date / Time codeine AdvReac Intermediate Itching Verified 08/18/24 09:31 Home Medications ?Medication ?Instructions ?Recorded ?Confirmed ?Type calcium carbonate (Calcium 600) 600 mg PO DAILY 08/11/23 08/18/24 History metformin 500 mg tablet,extended 500 mg PO DAILY #90 tabs 10/13/23 08/18/24 Rx release 24 hr losartan 50 mg-hydrochlorothiazide 1 tablet PO DAILY #90 tabs 10/28/23 08/18/24 Rx 12.5 mg tablet simvastatin 40 mg tablet 40 mg PO DAILY #90 tabs 11/20/23 08/18/24 Rx metoprolol succinate 50 mg 50 mg PO BID #180 tabs 06/08/24 08/18/24 Rx tablet,extended release 24 hr trazodone 50 mg tablet See Rx Instructions .Route 07/25/24 08/18/24 Rx .COMPLEX #90 tabs acyclovir 400 mg tablet 400 mg PO TID PRN FEVER BLISTERS 08/12/24 08/18/24 History aspirin 81 mg tablet,delayed 81 mg PO HS 08/12/24 08/18/24 History release diclofenac sodium 75 mg 75 mg PO Q12H pain 08/12/24 08/18/24 History tablet,delayed release famotidine 20 mg tablet 20 mg PO Q12H 08/12/24 08/18/24 History Laboratory Tests 08/18/24 09:14 POC Capillary Glucose 95 mg/dl (65-105) Patient hx anesthesia problems: none Family hx anesthesia problems: none Results Review: All pre-operative results and documents have been reviewed as part of the pre- operative evaluation. 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 History of conization of cervix age 26 History of Family History Family History (Updated 07/27/24 @ 10:25 by Noemí Tian [facility]) Mother Hypertension Lung cancer Sibling Hypertension brother and sister Uterine cancer sister Father Acute myocardial infarction Grandparent Cerebrovascular accident Maternal grandmother Social History Social History Smoking packs per day: 0.75 Smoking cigarettes per day: 15.0 Years smoked: 20 Smoking pack-years: 15.00 Smoking status: Former smoker Tobacco type: cigarettes Second hand tobacco smoke exposure: Yes Smoking end date: 11/29/01 Alcohol intake: current Drinks per week: 7 Substance use: never Substance use type: does not use Do You Feel Safe in your Home?: Yes Lack of Transportation: No Lack of Food: Never True Current Housing: Decline to Answer Concerned About Future Housing: Decline to Answer Difficulty Paying Gas/Electric Bills: Decline to Answer Difficulty Paying for Meds: Decline to Answer Currently Unemployed: Decline to Answer Education: Decline to Answer Difficulty w/ Childcare or Family Care: Decline to Answer Living arrangements: with family Additional living arrangements comments: Occupation/Education: retired Gender identity (if verbalized by the patient): Female Sexual Orientation (if Verbalized by the Patient): Straight or Heterosexual Spiritual care concerns: No Agree to blood products: Yes Anes - Eval Final PreProcedure Day of Procedure 08/18/24 09:59 Patient weight: overweight Heart: regular rate and rhythm Lungs: clear to auscultation Airway: Mallampati scale class III, special considerations and other (small mouth) Neurological: alert and oriented Last oral intake: >/= 8 hours ASA classification: III Emergent: no Anesthetic plan: proceed Anesthesia type and monitoring: general GIVS Results Review: All pre-operative results and documents have been reviewed as part of the pre- operative evaluation. Informed Consent: The patient's anesthetic plan and its attendant risks and benefits were discussed with the patient/family/POA. Questions were solicited and answers provided to the satisfaction of the patient/family/POA.
[2024-08-18] MEDS: KETOROLAC 15 MG/ML VIAL (*BKC) IV PUSH (10:36)
--- NOTE | 2024-08-18 10:36 | W.PM.PROC2 ---
Procedure Note - Detailed Date of Procedure 08/18/24 Pre-op Diagnosis 1. Endometrial hypertrophy Post-op Diagnosis Same (1. Same 2. Endometrial polyp) Procedure Performed 1. Hysteroscopy with polypectomy 2. Uterine curettings Surgeon Serjio Shi MD Anesthesia MAC Findings Endometrial polyp, rest of cavity appeared atrophic Description of Procedure Patient prepped and draped usual manner for this procedure. Cervix was dilated to allow the hysteroscope to be placed. Findings immediately noticed large polyp encompassing most of the endometrial cavity. This slightly hypervascular and was removed without difficulty using the hysteroscopic polyp remover. Sharp curetting of the rest of the cavity which did appear atrophic was then undertaken and this was sent as a separate specimen with scant tissue. At this point the procedure was considered terminated patient was sent to recovery room stable condition. Estimated Blood Loss 10 Drains No Packing No Pathology Yes Complications No immediate complications Condition Stable Disposition PACU [facility] Billing Surgery - Charge Forward: Surgery Billing
[2024-08-18 10:40] VITALS: BP 112/56; PULSE 58; RESP 14; O2SAT 100
[2024-08-18 10:55] LABS: Glucose Point of Care 112 mg/dl (65-105)
[2024-08-18 11:00] VITALS: BP 93/60; PULSE 57; RESP 16; O2SAT 97
[2024-08-18 11:30] VITALS: BP 110/66; PULSE 58
== END 2024-08-18 11:43 | disposition home or self-care (01) ==
PROVIDERS: PCP Family Medicine; Visit Provider Obstetrics & Gynecology
PROC: 0U5B8ZZ Destruction of Endometrium, Via Natural or Artificial Opening Endoscopic (ICD-10-PCS; CPT 58563; principal; 2024-08-18 11:00)
DX: N84.0 Polyp of corpus uteri (principal); E78.5 Hyperlipidemia, unspecified; I10 Essential (primary) hypertension; K21.9 Gastro-esophageal reflux disease without esophagitis; M19.90 Unspecified osteoarthritis, unspecified site; Z79.84 Long term (current) use of oral hypoglycemic drugs; Z79.82 Long term (current) use of aspirin; Z79.01 Long term (current) use of anticoagulants; Z98.890 Other specified postprocedural states; Z87.891 Personal history of nicotine dependence; Z87.19 Personal history of other diseases of the digestive system; Z80.49 Family history of malignant neoplasm of other genital organs; Z80.1 Family history of malignant neoplasm of trachea, bronchus and lung; Z82.49 Family history of ischemic heart disease and other diseases of the circulatory system
CPT/HCPCS: 58558; 36415; 80053; 80061; 82306; 82948; 83036; 84443; 85025; 88305; A9270; J1885; J2003; J2250; J2405; J2704; J3010; J7120

== ENCOUNTER 2024-11-13 20:23 | Observation (INO) | payer MEDICARE, SELFPAY ==
[2024-11-13] VITALS (12 sets, daily range): BP systolic 132–179; BP diastolic 72–103; PULSE 65–80; RESP 14–20; TEMP 36.5; O2SAT 95–100; BMI 30.7
--- NOTE | ~2024-11-13 | MR_ITS ---
EXAMINATION: MR brain/brain stem wo/w con DATE: 11/14/2024 10:53 INDICATION: Right face and hand numbness TECHNIQUE: Magnetic resonance imaging (MRI) of the brain and brainstem was performed without intraven ous contrast. Sequences included sagittal and axial T1-weighted SE, axial diffusion-weighted FS SE, a xial 3D SWAN, axial T2-weighted FLAIR, and axial T2-weighted FSE. Postcontrast axial and coronal T1-w eighted SE was obtained. Apparent diffusion coefficient (ADC) maps were created. COMPARISON: None. FINDINGS: There are no areas of restricted diffusion to suggest acute infarction. No intracranial hemorrhage. T here is a 11 x 10 x 8 mm enhancing extra-axial dural based mass along the petrous portion of the left temporal bone which is partially calcified on prior CT and most consistent with a meningioma. No oth er abnormally enhancing lesions identified. There are a few scattered tiny foci of nonspecific increa sed T2-weighted signal intensity in the cerebral white matter which is within normal limits for age a nd likely sequela of chronic small vessel ischemic disease. There are no intraparenchymal signal abno rmalities seen on the other pulse sequences. The ventricles are symmetric and normal in size. There a re no abnormal extra-axial fluid collections. Flow voids are seen in the cerebral arteries on the T2- weighted sequences consistent with their expected patency. Visualized orbits and soft tissues are unr emarkable. IMPRESSION: 1. No acute intracranial process. 2. 11 x 10 x 8 mm meningioma along the petrous portion of the left temporal bone. Reviewed, dictated and finalized at location A. IMPRESSION: 1. No acute intracranial process. 2. 11 x 10 x 8 mm meningioma along the petrous portion of the left temporal bon brynn
--- NOTE | ~2024-11-13 | US_ITS ---
EXAMINATION: US retroperitoneal duplex ltd DATE: 11/14/2024 16:31 INDICATION: Renal artery aneurysm. Hypertension and increased creatinine. TECHNIQUE: Multiple grayscale, color Doppler, and pulsed Doppler images of the kidneys and renal timmy vivian were obtained. COMPARISON: None. FINDINGS: The aorta peak systolic velocity is 111 cm/s. The right renal artery peak systolic velocity is 70 cm/ s in the proximal segment, 91 cm/s in the mid segment, and 77 cm/s in the distal segment. The left re nal artery peak systolic velocity is 69 cm/s in the proximal segment, 74 cm/s in the mid segment, and 49 cm/s in the distal segment. IMPRESSION: 1. No Doppler evidence of renal artery stenosis. Reviewed, dictated and finalized at location B.
--- NOTE | ~2024-11-13 | US_ITS ---
EXAMINATION: US carotid duplex BI DATE: 11/14/2024 16:31 INDICATION: Transient cerebral ischemia TECHNIQUE: Grayscale, color Doppler, and pulsed Doppler images of the cervical carotid arteries were obtained. The degree of vessel stenosis is placed in one of the following categories: normal, <50%, 5 0-69%, >=70% but less than near-occlusion, near-occlusion, or total occlusion. Note that percent sten osis relative to normal distal artery lumen diameter is indirectly measured from velocity measurement s as described by Moe, et al. Radiology 2003; 229:[id number]. COMPARISON: None. FINDINGS: RIGHT: The right common carotid artery (CCA) peak systolic velocity (PSV) is 70 cm/s. The right internal car otid artery (ICA) PSV is 81 cm/s. The right ICA end-diastolic velocity (EDV) is 25 cm/s. The right IC A/CCA PSV ratio is 1.2. Grayscale and color Doppler images yield demonstrate no evident stenosis or p laque in the ICA. The external carotid artery (ECA) PSV is 88 cm/s. There is antegrade flow in the ri ght vertebral artery. LEFT: The left CCA PSV is 70 cm/s. The left ICA PSV is 86 cm/s. The left ICA EDV is 25 cm/s. The left ICA/C CA PSV ratio is 1.2. Grayscale and color Doppler images demonstrate no evident stenosis or plaque in the ICA. The ECA PSV is 93 cm/s. There is antegrade flow in the left vertebral artery. IMPRESSION: 1. No evident plaque or stenosis in the right internal carotid artery. 2. No evident plaque or stenosis in the left internal carotid artery. Reviewed, dictated and finalized at location B.
--- NOTE | ~2024-11-13 | CT_ITS ---
History: Right-sided facial and upper extremity paresthesias PROCEDURE: CT head without contrast. COMPARISON: None TECHNIQUE: Axial imaging of the head performed from the skull base to the vertex without IV contrast. Sagittal a nd coronal reformations obtained. DLP: 681 mGy-cm FINDINGS: The ventricles are normal in size, shape and position. Asymmetry of the cerebellopontine angle for which contrast enhanced MRI is recommended. Posterior to the left-sided mastoid air cells is a protuberance of the basilar part of the occipital bone, possibly representing a meningioma, but with remodeling of the underlying parenchyma. There is no intracranial hemorrhage. Visualized paranasal sinuses are clear. The mastoid air cells are well aerated. No acute displaced fractures within the overlying cranium. Impression: No acute intracranial hemorrhage. Asymmetry of the left cerebellopontine angle which follow-up with contrast enhanced MRI is recommende d. Reviewed, dictated and finalized at location A. Impression: No acute intracranial hemorrhage. Asymmetry of the left cerebellopontine angle which follow-up with contrast enha nced MRI is recommended.
--- OUTSIDE RECORDS SUMMARY | 2024-11-13 20:26 | XMS_ITS | Clinical Summary ---
Author Organization [facility] Address [address] [place] [address] Phone Care Team Providers Care Salt Machine Operator Name Role Phone Mark Page MD Primary Care Provider Allergies Active Allergy Reactions Criticality Noted Date Comments Atorvastatin Calcium Muscle pain Medium 12/25/2008 Codeine Other (See comments) 03/29/2008 Medications metoprolol XL (TOPROL-XL) 50 mg 24 hr tablet take 1 tablet by oral route every day 0 0 5 Active calcium carbonate-vitam in D3 (CALCIUM 500 + D) 1,250mg (500mg [...] 2 (two) times a day 6 Active losartan-hydroC HLOROthiazide (HYZAAR) 50-12.5 mg per tablet Take 1 tablet by mouth daily Active metFORMIN XR (GLUCOPHAGE XR) 500 mg 24 hr tablet Take 1 tablet (500 mg total) by mouth daily Active simethicone (MYLICON) 125 mg chewable tablet 1 tablet (125 mg total) 4 Active traZODone (DESYREL) 50 mg tablet Take 1 tablet (50 mg total) by mouth nightly Active Active Problems Problem Noted Date Diagnosed Date Overweight with body mass in dex (BMI) of 28 to 28.9 in adult 08/05/2024 Assessment & Plan (08/05/2024 6:05 AM GYMNASIUM TEACHER): Wt Readings from Last 3 Encounters: 08/04/24 [...] 08/04/2024 Assessment & Plan (08/05/2024 6:02 AM GYMNASIUM TEACHER): - New or chronic worsening conditions: no [...] 08/23 Assessment & Plan (08/05/2024 6:01 AM GYMNASIUM TEACHER): -chronic, controlled -patient currently takes metformin 500 mg daily -reiterated importance of diabetic foot and eye exams -will recheck lab work -continue current treatment plan Vitamin D deficiency 08/04/2024 Overview (08/16/2024): Vitamin D 50+ 08/23 Assessment & Plan (08/05/2024 6:01 AM GYMNASIUM TEACHER): -chronic, controlled -patient currently takes vitamin D3 supplement -will recheck lab value -continue current treatment plan 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 Hypertension 06/14/2021 Assessment & Plan (08/05/2024 5:59 AM GYMNASIUM TEACHER): BP Readings from Last 3 Encounters: 08/04/24 135/85 05/15/17 130/72 05/13/16 120/86 -chronic, at goal of <140/90 -currently taking metoprolol 50 mg, losartan-hydrochlorothiazide 50-12.5 mg daily -patient reports checking blood pressure regularly at home -encourage patient to continue low-sodium diet -continue current treatment plan Lung mass 06/14/2021 Personal history of tobacco use 06/14/2021 Assessment & Plan (08/05/2024 6:04 AM GYMNASIUM TEACHER): Tobacco Use: Medium Risk (08/04/2024) Patient History [...] 73 Assessment & Plan (08/05/2024 5:58 AM GYMNASIUM TEACHER): -chronic, controlled -Previously prescribed simvastatin 20 mg -Discussed importance of well-balanced diet -will recheck lab values -continue current treatment plan Pulmonary nodule 03/29/2008 Encounters Date Type Department Care Team Description 08/16/2024 Results Follow-Up [facility] Primary Care at [address] [place] [id number] Mark Page MD SCAN - LABS 08/15/2024 Orders Only [facility] Health Information Management [address] [place] [id number] Mark Page MD from Last 3 Months Immunizations Immunization Administration [...] on file Legal Sex Female 2:08 AM GYMNASIUM TEACHER Gender Identity Not on file Sexual Orientation Not on file Obstetrics History Last Filed Vital Signs Vital Sign Reading Time Taken Comments Blood Pressure 135/85 08/04/2024 10:41 AM GYMNASIUM TEACHER typical blood pressure reading at home Pulse 67 08/04/2024 10:15 AM GYMNASIUM TEACHER Temperature 36.5 C (97.7 F) 08/04/2024 10:15 AM GYMNASIUM TEACHER Respiratory Rate 16 08/04/2024 10:1 5 AM GYMNASIUM TEACHER Oxygen Saturation 96% 08/04/2024 10: 15 AM GYMNASIUM TEACHER Inhaled Oxygen Concentration - - Weight 74 kg (163 lb 3.2 oz) 08/04/2024 10:15 AM GYMNASIUM TEACHER Height 160 cm (5' 2.99) 08/04/2024 10: 15 AM GYMNASIUM TEACHER Body Mass Index 28.92 08/04/2024 10:15 AM GYMNASIUM TEACHER Plan of Treatment Health Maintenance Due Date Last Done Comments Hepatitis C Screening 1955 Hepatitis B Screening [...] Well Visit 65+ 08/04/2025 08/04/2024, 10/2024, 05/15/2017 Colon Cancer Screening-Colonoscopy 07/08/2027 07/08/2022 Colon Cancer Screening-CT Colonography Discontinued 07/08/2022 Colon Cancer Screening-DNA Stool Discontinued 07/08/2022 Colon Cancer Screening-FIT Discontinued 07/08/2022 Colon Cancer Screening-Sigmoidoscopy Discontinued 07/08/2022 Influenza Vaccine Completed 02/01/2024, , 03/05/2018, Additional history exists Procedures Procedure Name Priority Date/Time Associated Diagnosis Comments SCAN - LABS 08/15/2024 COLONOSCOPY Routine 07/08/2022 SCREENING MAMMOGRAM BILATERAL W SANTIAGO Schedule Routine, Read Routine (OP Routine) 09/19/2020 1:32 PM CDT Encounter for screening mammogram for malignant neoplasm of breast DEXA AXIAL SKELETON BONE DENSITY 1 OR MORE SITES Schedule Routine, Read Routine (OP Routine) 07/15/2019 11:08 AM GYMNASIUM TEACHER Screening for osteoporosis from Last 3 Months or Most Recently Relevant to Health Maintenance Results * SCAN - LABS (08/15/2024) us Mark Page MD Edited Result - Final * COLONOSCOPY (07/08/2022) 07/08/2022 Impressions Jeannine Poon, CLT - 08/31/2024 2:00 PM CDT Next colonoscopy in 5 years Colonic Polyps Diverticulosis without perforation of abscess w/o bleeding Internal Hemorrhoids Anal skin tag (hemorrhoidal) Historical Provider HEALTH MAINTENANCE Final Result * Screening Mammogram Bilateral W Santiago (09/19/2020 [...] 1 or 2 Site (07/15/2019 11:08 AM GYMNASIUM TEACHER) Anatomical Region Laterality Modality Body N/A Digital Radiogra phy 07/15/2019 11:1 5 AM GYMNASIUM TEACHER Impressions 07/15/2019 11:16 AM GYMNASIUM TEACHER Low bone mass (osteopenia) which depending on the clinical circumstances may result in a moderate increased risk of fragility fracture. If followup is to be done, for technical reasons, it should be performed on this same machine. Electronically signed by: Vinny Cordero M.D. Narrative 07/15/2019 11:16 AM GYMNASIUM TEACHER EXAM: Bone mineral density [facility]. HISTORY: Postmenopausal. Hormone replacement therapy. Calcium and vitamin D supplementation. Assess for osteoporosis. DXA BMD was done at [facility]. Precision testing at this site has [...] MD - 07/15/2019 EXAM: Bone mineral density [facility]. HISTORY: Postmenopausal. Hormone replacement therapy. Calcium and vitamin D supplementation. Assess for osteoporosis. DXA BMD was done at [facility]. Precision testing at this site has [...] Most Recently Relevant to Health Maintenance Insurance [facility] [employer] HMO REF MEDICARE ADVANTAGE Care Teams Salt Machine Operator Relationship Specialty Start Date End Date Mark Page MD PCP - General Family Medicine 08/04/24
--- OUTSIDE RECORDS SUMMARY | 2024-11-13 20:26 | XMS_ITS | Referral Summary ---
Author Organization [facility] Address [address] [place] [address] Phone Care Team Providers Care Business Analyst Project Manager Name Role Phone Mark Page MD Primary Care Provider Encounters Date Type Department Care Team Description 08/16/2024 Results Follow-Up [facility] Primary Care at [address] [place] [address] Mark Page MD SCAN - LABS 08/15/2024 Orders Only [facility] Health Information Management [address] [place], [place] [id number] Mark Page MD from Last 3 Months Allergies Active Allergy [...] 08/05/2024 Assessment & Plan (08/05/2024 6:05 AM SUPERVISOR [employer]INT[employer]): Wt Readings from Last 3 Encounters: 08/04/24 [...] 08/04/2024 Assessment & Plan (08/05/2024 6:02 AM [employer]PERVIS[employer]): - New or chronic worsening conditions: no [...] 08/23 Assessment & Plan (08/05/2024 6:01 AM [employer]): -chronic, controlled -patient currently takes metformin 500 mg daily -reiterated importance of diabetic foot and eye exams -will recheck lab work -continue current treatment plan Vitamin D deficiency 08/04/2024 Overview (08/16/2024): Vitamin D 50+ 08/23 Assessment & Plan (08/05/2024 6:01 AM [employer]): -chronic, controlled -patient currently takes vitamin D3 supplement -will recheck lab value -continue current treatment plan 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 Hypertension 06/14/2021 Assessment & Plan (08/05/2024 5:59 AM SUPERVISOR [employer]): BP Readings from Last 3 Encounters: 08/04/24 135/85 05/15/17 130/72 05/13/16 120/86 -chronic, at goal of <140/90 -currently taking metoprolol 50 mg, losartan-hydrochlorothiazide 50-12.5 mg daily -patient reports checking blood pressure regularly at home -encourage patient to continue low-sodium diet -continue current treatment plan Lung mass 06/14/2021 Personal history of tobacco use 06/14/2021 Assessment & Plan (08/05/2024 6:04 AM [employer]): Tobacco Use: Medium Risk (08/04/2024) Patient History [...] 73 Assessment & Plan (08/05/2024 5:58 AM [employer]): -chronic, controlled -Previously prescribed simvastatin 20 mg [...] on file Legal Sex Female 2:08 AM [employer]PER[employer] Gender Identity Not on file Sexual Orientation Not on file Last Filed Vital Signs Vital Sign Reading Time Taken Comments Blood Pressure 135/85 08/04/2024 10:41 AM [employer] typical blood pressure reading at home Pulse 67 08/04/2024 10:15 AM [employer] Temperature 36.5 C (97.7 F) 08/04/2024 10:15 AM [employer] Respiratory Rate 16 08/04/2024 10:1 5 AM [employer] Oxygen Saturation 96% 08/04/2024 10: 15 AM [employer]PERVIS[employer] Inhaled Oxygen Concentration - - Weight 74 kg (163 lb 3.2 oz) 08/04/2024 10:15 AM [employer]PERVIS[employer] Height 160 cm (5' 2.99) 08/04/2024 10: 15 AM [employer] Body Mass Index 28.92 08/04/2024 10:15 AM SUPERVIS[employer] Plan of Treatment Not on file Procedures Procedure Name Priority Date/Time Associated Diagnosis Comments SCAN - LABS 08/15/2024 COLONOSCOPY Routine 07/08/2022 SCREENING MAMMOGRAM BILATERAL W S[place]O Schedule Routine, Read Routine (OP Routine) 09/19/2020 1:32 PM CDT Encounter for screening mammogram for malignant neoplasm of breast DEXA AXIAL SKELETON BONE DENSITY 1 OR MORE SITES Schedule Routine, Read Routine (OP Routine) 07/15/2019 11:08 AM [employer] Screening for osteoporosis from Last 3 Months or Most Recently Relevant to Health Maintenance Results * SCAN - LABS (08/15/2024) Mark Page MD Edited Result - Final * COLONOSCOPY (07/08/2022) 07/08/2022 Impressions Jeannine Poon, CLT - 08/31/2024 2:00 PM CDT Next colonoscopy in 5 years Colonic Polyps Diverticulosis without perforation of abscess w/o bleeding Internal Hemorrhoids Anal skin tag (hemorrhoidal) Yesenia Provider HEALTH MAINTENANCE Final Result * Screening [...] 1 or 2 Site (07/15/2019 11:08 AM [employer]) Anatomical Region Laterality Modality Body N/A Digital Radiogra phy 07/15/2019 11:1 5 AM [employer] Impressions 07/15/2019 11:16 AM [employer] Low bone mass (osteopenia) which depending on the clinical circumstances may result in a moderate increased risk of fragility fracture. If followup is to be done, for technical reasons, it should be performed on this same machine. Electronically signed by: Vinny Cordero M.D. Narrative 07/15/2019 11:16 AM [employer] EXAM: Bone mineral density [facility]. HISTORY: Postmenopausal. Hormone replacement therapy. Calcium and vitamin D supplementation. Assess for osteoporosis. DXA BMD was done at [facility] on a RxRevu CI. Precision testing at this site has [...] MD - 07/15/2019 EXAM: Bone mineral density [facility]. HISTORY: Postmenopausal. Hormone replacement therapy. Calcium and vitamin D supplementation. Assess for osteoporosis. DXA BMD was done at [facility] on a HoloTigermed Discovery CI. Precision testing at this site [...] Most Recently Relevant to Health Maintenance Insurance [facility] CHOICE PLUS [facility] HMO/PPO Address: [facility] [address] [place] [address] MDCR HMO [address]F [facility] MEDICARE Address: [address] [place], [place] [id number] [facility] MEDICARE Address: [place] [id number] [place] [phone] Care Teams Business Analyst Project Manager Relationship Specialty Start Date End Date Mark Page MD PCP - General Family Medicine 08/04/24
--- OUTSIDE RECORDS SUMMARY | 2024-11-13 20:26 | XMS_ITS | Continuity of Care Document ---
Author Organization [facility] Address [address] [place] [address] Phone Care Team Providers Care Railcar Brake Operator Name Role Phone Ira Nichols MD Unavailable Unavailable Advance Directives Directive Yes / No Effective Date File Name No Information Encounters Encounter Description Practice Location Reason(s) For Visit Diagnoses Date Provider Providers Copied on Encounter [facility], [address], [place], [place], [id number], tel:[phone] [facility] No Information Magdalena Roth. [address] [place] [address], [id number], . tel:[phone] Family History Family Member Type Diagnosis Age At Onset No Information Payers Payer name Insurance type Covered libertarian ID Authoriza tion(s) No Information Social History [...]
--- OUTSIDE RECORDS SUMMARY | 2024-11-13 20:26 | XMS_ITS | Clinical Summary ---
Author Organization [facility] [employer] Address [address] [place] [address] Care Team Providers Care Public Relations Name Role Phone Susanjody Dior CARRINGTON-CORSETIER Primary Care Provider + Source Comments [facility],non-owned Affiliates and Associated Physician Practices is amultiple site organization consisting of ambulatory clinics and hospital sitesin [place], [place], [place] and [place]. This disclosure is being madepursuant to the Care Everywhere program and may not contain all information available regarding this patient. Last updated 18.[facility] [employer] Allergies Active Allergy Reactions Criticality Noted Date Comments Codeine 03/29/2008 Atorvastatin Calcium Myalgias 12/25/2008 Medications * Be aware that medications may not be up to date on this document. Alwaysverify current medications with the patient. simvastatin (ZOCOR) 20 MG tabletIndication s:Hyperlipidemia Take 1 Tab by mouth at bedtime. 30 Tab 0 1 Active METOPROLOL SUCCINATE ER PO Acti ve Estradiol (EVAMIST TD) Active albuterol HFA (PROAIR HFA) 108 (90 BASE) MCG/ACT inhalerIndicatio ns:Acute bronchitis, unspecified organism Inhale 2 Puffs by mouth every 4 hours as needed for Shortness of Breath, Wheezing or Cough 1 Inhaler 1 6 Active fluticasone propionate (FLONASE) 50 MCG/ACT nasal sprayIndications :Acute bronchitis, unspecified organism Rachel 1 Rachel into each nostril 2 times daily 1 Bottle 6 Active benzonatate (TESSALON) 100 MG capsuleIndicatio ns:Acute bronchitis, unspecified organism Take 1 Cap by mouth 3 times daily as needed for Cough 20 Cap 6 Active Additional Information Patient not taking.Reported on 06/25/2016 Active Problems Problem Noted Date Diagnosed Date Hyperlipidemia 03/29/2008 Pulmonary nodule 03/29/2008 Immunizations Immunization Administration Dates Next Due INFLUENZA VACCINE, TRIV. 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 Gender Identity Not on file Sexual Orientation Not on file Occupation Industry Job Start Date Job End Date retired Not on file Not on file Not on file Last Filed Vital Signs Vital Sign Reading Time Taken Comments Blood Pressure 114/78 06/25/2016 9:24 AM TUTORING CLINICIAN Pulse 89 06/25/2016 9:24 AM TUTORING CLINICIAN Temperature 37.4 C (99.4 F) 06/25/2016 9:24 AM TUTORING CLINICIAN Respiratory Rate 16 06/25/2016 9:24 AM TUTORING CLINICIAN Oxygen Saturation 96% 06/25/2016 9:24 AM TUTORING CLINICIAN Inhaled Oxygen Concentration - - Weight 74.8 kg (165 lb) 06/25/2016 9:24 AM TUTORING CLINICIAN Height 160 cm (5' 3) 06/25/2016 9:24 AM TUTORING CLINICIAN Body Mass Index 29.23 06/25/2016 9:24 AM TUTORING CLINICIAN Plan of Treatment Health Maintenance Due Date [...] 04/07/2018 04/07/2008, 12/13/2003 COVID-19 VACCINE ( - season) 2024 DEPRESSION SCREENING 06/01/2024 INFLUENZA VACCINE (Season Ended) 2025 04/03/2017, 04/01/2010, 04/07/2008 Respiratory Syncytial Virus (RSV) Vaccine Pt: or [...] PM CDT Narrative Resulting Agency Comment [facility] [address] [facility] [id number] [place] Blas Lyons MD LAB - CHEMISTRY ORDERABLES Final Result [facility] ACCOUNT BILL [address] [place] [address] from Last 3 Months or Most Recently Relevant to Health Maintenance Insurance [facility] MANAGED MEDICARE ADV SELF PAY NO INSURANCE Member Subscriber Plan / Payer (Ef fective for All Dates) Name:Mirta Reyes Member ID:Not on file Relation to Subscriber:Not on file Name:ERICMIRTA Subscriber ID:Not on file (Home) Address: [address] [place] [address] Payer ID:Not on file Group ID:Not on file Type:Self Pay Address: [place], [place] [facility] MANAGED MEDICARE ADV Care Teams Public Relations Relationship Specialty Start Date End Date Dior Anderson APRN-CNP [address] [address] PCP - General 01/28/21
--- OUTSIDE RECORDS SUMMARY | 2024-11-13 20:27 | XMS_ITS | CONTINUITY OF CARE DOCUMENT ---
Author Name leticia kelly Address Unknown Organization [facility] Address [address] [place] [address] Phone [phone] Care Team Providers Care Bottom Worker Name Role Phone Chi MORALEZ, Gildardo Unavailable [phone] Unavailable STACY BECKER MD Unavailable [...] In-person encounter Office Visit Jayro Martinez DO [facility] - In-person encounter Office Visit Quang Marcus MD [facility] Preoperative cardiovascular examination - In-person encounter Office Visit Gildardo Mireles MD [facility] - In-person encounter Office Visit Gildardo Mireles MD [facility] Left renal artery aneurysm, 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 - In-person encounter Office Visit Gildardo Mireles MD [facility] Cardiology examinationHyperlipidemiaLeft renal artery aneurysm, 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Tobacco abuse, quitLung mass, unspecifiedHypertension VITAL SIGNS Date Observation Value Provider Body Mass Index (Ratio) 29.40 kg/m2 Prad eep Drew Martinez DO pulse rate 74 /min Kandi Courtney weight E&M 166 [lb_av] Kandi Courtney respiratory rate E&M 12 /min Kandi Sheriwn height E&M 63 [in_i] Kandi Courtney Body Mass Index (Ratio) 29.76 kg/m2 Juan Marcus MD blood pressure, cuff size regular Ke earnesti Wen blood pressure, diastolic 96 mm[Hg] Mikhail tinocoi Wen blood pressure, systolic 142 mm[Hg] Dianelys Carver oxygen saturation, oximetry 99 % Iliana Carver respiratory rate E&M 12 /min Iliana moon pulse rate 72 /min Iliana Yanes [facility] weight E&M 168 [lb_av] Iliana Yanes [facility] height E&M 63 [in_i] Iliana Farzana [facility] Body Mass Index (Ratio) 31.07 kg/m2 [...] blood pressure, diastolic 105 mm[Hg] Ca therine [place] blood pressure, systolic 164 mm[Hg] Cat herine [place] oxygen saturation, oximetry 97 % Liana [place] respiratory rate E&M 14 /min Catheri ne [place] pulse rate 64 /min Liana Osbaldo weight E&M 178 [lb_av] Liana Osbaldo blood pressure, cuff size regular Ca therine [place] height E&M 63 [in_i] Liana Osbaldo Body Mass Index (Ratio) 31.53 kg/m2 Jose Villegas blood pressure, cuff size large Mi alvin [place] blood pressure, diastolic 100 mm[Hg] Mi alvin [place] blood pressure, systolic 160 mm[Hg] Sage helle [place] pulse rate 88 /min Fanny cool oxygen [...] High 6 cholesterol, serum 193 mg/dL [facility] [id number] 4188/01/2 6 calcium, serum 10.1 mg/dL [facility] 8.7-10.3 6 carbon dioxide, venous blood 26 mmol/L [facility] 20-29 6 chloride, serum 99 mmol/L [facility] 96-106 6 potassium, serum 4.3 mmol/L [facility] 3.5-5.2 6 sodium, serum 139 mmol/L [facility] [phone]/01/2 6 urea nitrogen/creatinin e ratio, serum 25 [...] Estab. 6 platelet count 302 X10E3/UL [facility] [phone]/01/2 6 red blood cell distribution width 12.1 [...] Policy type / Coverage type Marlene red libertarian ID AARP MEDICARE ADVANTAGE HMO-POS HMO [id number] ADVANCE DIRECTIVES Name Date DISCUSSED - NO DECISION MADE TREATMENT PLAN Date Name Performer [id number],C,B P elevated today at 159/95. Advised reduced sodium intake and routine monitoring of the blood pressure. We aim for less than 130/80. Gildardo Mireles MD [id number],S, F ollowed by CT chest yearly. 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 Recent CT showed 1.2 cm aneurysm. We will continue to monitor with a yearly CT of the abdomen. Gildardo Mireles MD [id number],S, O n simvastatin. Recent LDL 114. Gildardo Mireles MD [id number],S, S /p recent renal and celiac angiogram showing small left renal artery aneurysm, 10-20% stenosis of the mid right renal artery, and normal celiac artery angiogram with a tortuous splenic artery but no aneurysm was noted. We will repeat her renal CTA in 1 year. Gildardo Mireles MD [id number],C, B P today 164/105. Advised routine home BP monitoring and dietary sodium restriction. Gildardo Mireles MD [id number],S, O n simvastatin. Recent LDL 114. Gildardo Mireles MD [id number],S, S /p recent renal and celiac angiogram showing small left renal artery aneurysm, 10-20% stenosis of the mid right renal artery, and normal celiac artery angiogram with a tortuous splenic artery but no aneurysm was noted. Gildardo Mireles MD [id number],S,O n simvastatin. Will obtain a recent lipid panel from your office. Prateek Mccormickhenok [id number],C,Followed by [place] [facility] chest yearly. Gildardo Mireles MD [id number],C,A ngiogram to evaluate the aneurysm explained. Gildardo Mireles MD [id number],C, I ncidental finding of left renal artery aneurysm on CT scan. No symptoms. Will arrange a renal angiogram to evaluate the size of aneurysm. Details of angiogram discussed with patient. Risk and benefits explained.to patient and .Agreeable to proceed. Gildardo Mireles MD [id number],[place], T he blood pressure medications were recently increased by her primary care. Will monitor BP and adjust antihypertensives. Gildardo Mireles MD [id number],[place], W ill discuss this with interventionalist and vascular surgeon. Gildardo Mireles MD [id number],[place], I f the patient is asymptomatic, will discuss this with interventionalist and vascular surgeon. Gildardo Mireles MD [id number],[place], T he blood pressure medications were recently [...]
--- OUTSIDE RECORDS SUMMARY | 2024-11-13 20:27 | XMS_ITS | Data Portability ---
Author Organization [facility] [employer], Main Office Address [address] [place] [address] Care Team Providers Care Flight Line Mechanic Name Role Phone MARIPOSA CLAIRE Primary Care Provider [phone] MARIPOSA CLAIRE Referring Provider [phone] Assessment Encounter Date Assessment Date Assessment LastModified by Organization Details LastModified Time 07/16/2023 07/16/2023 I have reconciled the patient's medications post their discharge from inpatient facility. Not available 07/16/2023 09:28:51 Plan of Treatment Reminders Order Date Submit Date Provider Last Modified By Organization Details Last Modified Time Details Appointments None recorded. Lab hemoglobin A1C, fingerstick [address], [place], [address], 3 15:24:52 urinalysis, dipstick [address], [place], [address], 3 16:04:50 urinalysis, complete - do sensitiviti es 2022 023 [facility], [facility] [address], [place], [address], 3 00:40:59 Referral None recorded. Procedures None recorded. Surgeries None recorded. Imaging electrocard iogram 2022 023 [email or web address] 2 [facility] [address], [place], [address], 3 15:31:27 Medication Orders Xarelto 20 mg tablet 2023 024 [facility] [id number] In [facility], [address], [place], [address], 4 16:04:29 Patient TargetsNo targets recorded. Patient Instructions Encounter Date Encounter Id Patient Instructions Last Modified By Organization Details Last Modified Time 09/02/2022 [id number] dementia rating scale-2* Not available 09/02/2022 11:12:28 [...] diseases from occurring) Smoking Risk: Non Smoker I have no recommendations. Alcohol Misuse Screening: Positive Continue to consider stopping alcohol and call if we can assist you Weight: Overweight try to lose 5% of your body weight Physical activity: Need more exercise/physical activity decrease sitting time to no more than 5hr/day Nutrition: Good Fall Risk (screened today): Low Vaccines Pneumococcal: No further needed Influenza: Your next one in the fall of this year Chronic Disease Risks Stroke: Intermediate Risk Continue current treatment plan Heart Attack: Intermediate Risk Continue current treatment plan Clogging of the Arteries: Intermediate Risk Continue current treatment plan Diabetes: Low Risk I have no recommendations Secondary Prevention/Interven tion (detects treatable diseases before they may cause symptoms, disability, or ) Breast Cancer Screening with mammogram: Your next mammogram: 06/18/2023 Cervical/Uterine/Ov jarret Cancer Screening: No screening necessary Osteoporosis Screening: Recommended today Date Screening Last Performed: Per patient, over 2 years ago Colon Cancer Screening: Colonoscopy In: 07/2027 Date Screening Last Performed: 07/2022 with repeat recommendation for 5 years Eye Disease Screening: Your next exam in: 07/2023 Dementia Risk: Low I have no recommendations Depression Screening: Negative I have no recommendations. [email or web address] Not available 09/01/2022 12:02:21 05/19/2023 [id number] hgb A1c 6.4 , no increased risk of infection . is cleared for surgery [email or web address] Not available 05/30/2023 11:01:08 07/16/2023 [id number] Thank you for yo ur visit to [...] at home, please call us to discuss. [email or web address] Not available 07/16/2023 09:28:52 Homebound Status : Required Home Health Services: Durable Medical Equipment needed: Billing Guidelines CPT code 14047- Transitional Care Management services with moderate medical decision complexity (rcwr-jm-ydyl visit within 14 days of discharge). CPT code 89104- Transitional Care Management services with high medical decision complexity (zwpj-ks-ujcx visit within 7 days of discharge). [email or web address] Not available 07/16/2023 09:28:52 Reason for Referral None Reported. Results Created Date Observation Date Name Description Value Unit Range Abnormal Flag Note LastModifiedBy Organization Detail LastModifiedTime 03/21/20 22 03/22/2022 HEMOG LOBIN A1C hemoglobin A1C 5.8 %_of_ [...] Curre ntly, no conse nsus exist s regsalomon paiz use of hemog lobin A1c for diagn osis of diabe prosper for child mi. Not Available [employer] [address] [address] [place], [address], 03/22/2022 10:14:18 03/21/2003/22/2022 HEPAT IC FUNCT ION PANEL bilirubin, total 0.5 mg/dL 0.2-1. 2 normal Not Available [employer] [address] [address] [place], [address], 03/22/2022 10:14:17 03/21/20 22 03/22/2022 HEPAT IC FUNCT ION PANEL bilirubin, direct 0.1 mg/dL < or = 0.2 normal Not Available [employer] [address] [address] [place], [address], 03/22/2022 10:14:17 03/21/20 22 03/22/2022 HEPAT IC FUNCT ION PANEL bilirubin, indirect 0.4 mg/dL _(hakeem c) 0.2-1. 2 normal Not Available [employer] [address] [address] [place], [address], 03/22/2022 10:14:17 03/21/2003/22/2022 HEPAT IC FUNCT ION PANEL alkaline phosphatase 53 U/L 37-153 normal Not Available [facility] [employer] [address] [address] [place], [address], 03/22/2022 10:14:17 03/21/20 22 03/22/2022 HEPAT IC FUNCT ION PANEL AST 20 U/L 10-35 normal Not Available [address], [address], 03/22/2022 10:14:17 03/21/20 22 03/22/2022 HEPAT IC FUNCT ION PANEL ALT 24 U/L 6-29 normal Not Available [address], [address], 03/22/2022 10:14:17 03/21/20 22 03/22/2022 HEPAT IC FUNCT ION PANEL protein, total 6.9 g/dL 6.1-8. 1 normal Not Available [address], [address], 03/22/2022 10:14:17 03/21/20 22 03/22/2022 HEPAT IC FUNCT ION PANEL albumin 4.6 g/dL 3.6-5. 1 normal Not Available [address], [address], 03/22/2022 10:14:17 03/21/20 22 03/22/2022 HEPAT IC FUNCT ION PANEL globulin 2.3 g/dL_ (calc ) 1.9-3. 7 normal Not Available [address], [address], 03/22/2022 10:14:17 03/21/2003/22/2022 HEPAT IC FUNCT ION PANEL albumin/glob ulin ratio 2.0 (calc ) 1.0-2. 5 normal Not Available [address], [address], 03/22/2022 10:14:17 03/21/20 22 03/22/2022 BASIC METAB OLIC PANEL glucose 99 mg/dL 65-99 normal Fasti ng refer ence inter christiano Not Available [address], [address], 03/22/2022 10:14:16 03/21/2003/22/2022 BASIC METAB OLIC PANEL urea nitrogen (BUN) 20 mg/dL 7-25 normal Not Available [address], [address], 03/22/2022 10:14:16 03/21/20 22 03/22/2022 BASIC METAB OLIC PANEL creatinine 0.85 mg/dL 0.50-1 .05 normal Not Available [address], [address], 03/22/2022 10:14:16 03/21/2003/22/2022 BASIC METAB OLIC PANEL eGFR 76 mL/mi n/1.7 3m2 > or = 60 normal The eGFR is based on the CKD-E PI 2020 equat ion. To calcu late the new eGFR from a previ ous Creat inine or Cysta tin C resul t, go to https ://buddy jasmine.dionna morton/gracia carrillo s/ kdoqi /gfr% 5Fcal culat or Not Available [address], [address], 03/22/2022 10:14:16 03/21/20 22 03/22/2022 BASIC METAB OLIC PANEL BUN/creatini ne ratio not applic able (calc ) 6-22 Not Available [address], [address], 03/22/2022 10:14:16 03/21/2003/22/2022 BASIC METAB OLIC PANEL sodium 141 mmol/ L 135-14 6 normal Not Available [address], [address], 03/22/2022 10:14:16 03/21/2003/22/2022 BASIC METAB OLIC PANEL potassium 4.6 mmol/ L 3.5-5. 3 normal Not Available [address], [address], 03/22/2022 10:14:16 03/21/2003/22/2022 BASIC METAB OLIC PANEL chloride 105 mmol/ L 98-110 normal Not Available [address], [address], 03/22/2022 10:14:16 03/21/2003/22/2022 BASIC METAB OLIC PANEL carbon dioxide 24 mmol/ L 20-32 normal Not Available [address], [address], 03/22/2022 10:14:16 03/21/2003/22/2022 BASIC METAB OLIC PANEL calcium 9.4 mg/dL 8.6-10 .4 normal Not Available [address], [address], 03/22/2022 10:14:16 03/21/2003/22/2022 LIPID PANEL , STAND VIELKA cholesterol, total 159 mg/dL <200 normal Not Available [address], [address], 03/22/2022 10:14:16 03/21/2003/22/2022 LIPID PANEL , STAND [place]EL[place] HDL cholesterol 49 mg/dL > or = 50 low Not Available [address], [address], 03/22/2022 10:14:16 03/21/2003/22/2022 LIPID PANEL , STAND VIELKA triglyceride s 139 mg/dL <150 normal Not Available [address], [address], 03/22/2022 10:14:16 03/21/2003/22/2022 LIPID PANEL , STAND VIEL[place] LDL-choleste rol 86 mg/dL _(hakeem c) normal Refer ence range : <100 Isela able range <100 mg/dL for prima ry preve ntion ; <70 mg/dL for patie nts with CHD or diabe tic patie nts with > or = 2 CHD risk facto rs. LDL-C is now calcu lated using the Belinda n-[facility] kins mikeu sanaz n, which is a valid ated novel metho d provi ding jana r accur acy than the Fried graham equat ion in the estim ation of LDL-C . Belinda ashraf SS et al. LOS. 2013; 310(1 9): 2061- 2068 (http ://ed ucati on.Qu estDi Digital Assentos KidBooks. com/f aq/FA Q164) Not Available [facility] [address] [place], [address], 03/22/2022 10:14:16 03/21/20 22 03/22/2022 LIPID PANEL , STAND VIELKA chol/HDLC ratio 3.2 (calc ) <5.0 normal Not Available [employer] [facility] [address] [place], [address], 03/22/2022 10:14:16 03/21/20 22 03/22/2022 LIPID PANEL , STAND VIELKA non HDL cholesterol 110 mg/dL _(hakeem c) <130 normal For patie nts with diabe prosper plus 1 major ASCVD risk facto r, treat ing to a non-H DL-C goal of <100 mg/dL (LDL- C of <70 mg/dL ) is consi dhruvd a alysia stokes optio n. Not Available [employer] [facility] [address] [address], [place], [address], 03/22/2022 10:14:16 04/07/20 23 04/07/2023 urina lysis , dipst ick Leukocytes (reference range: negative maureen/ l) Small Not Available [facility] [address], [place], [address], 04/07/2023 15:35:26 04/07/20 23 04/07/2023 urina lysis , dipst ick Nitrite (reference rage: negative mg/dl) negati ve Not Available [address], [place], [address], 04/07/2023 15:35:26 04/07/20 23 04/07/2023 urina lysis , dipst ick Urobilinogen (reference range: 0.2-1 mg/dl) 0.2 Not Available [address], [place], [address], 04/07/2023 15:35:26 04/07/20 23 04/07/2023 urina lysis , dipst ick Protein (reference range: negative mg/dl) Negati ve Not Available [address], [place], [address], 04/07/2023 15:35:26 04/07/20 23 04/07/2023 urina lysis , dipst ick pH (reference range: 5-7) 6.5 Not Available [address], [place], [address], 04/07/2023 15:35:26 04/07/20 23 04/07/2023 urina lysis , dipst ick Blood (reference range: negative Gerber/ l) Small Not Available [address], [place], [address], 04/07/2023 15:35:26 04/07/20 23 04/07/2023 urina lysis , dipst ick Specific [place] (reference range: 1.005-1.030) 1.015 Not Available [address], [place], [address], 04/07/2023 15:35:26 04/07/20 23 04/07/2023 urina lysis , dipst ick Ketone (reference range: negative mg/dl) Negati ve Not Available [address], [place], [address], 04/07/2023 15:35:26 04/07/20 23 04/07/2023 urina lysis , dipst ick Bilirubin (reference range: negative mg/dl) Negati ve Not Available [address], [place], [address], 04/07/2023 15:35:26 04/07/20 23 04/07/2023 urina lysis , dipst ick Glucose (reference range: negative mg/dl) Negati ve Not Available [address], [place], [address], 04/07/2023 15:35:26 04/07/20 23 04/07/2023 urina lysis , dipst ick Appearance Clear Not Available [address], [place], [address], 04/07/2023 15:35:26 04/07/20 23 04/07/2023 urina lysis , dipst ick Color Yellow Not Available [address], [place], [address], 04/07/2023 15:35:26 05/19/20 23 05/19/2023 hemog lobin A1C, finge rstic k HgbA1C 6.4 Not Available [address], [place], [address], 05/19/2023 15:08:48 06/17/19 23 06/17/2022 MAMMO , scree fab, bilat eral No observ ation record ed. [id number] [facility] Add On Lab Orders [address], [place], [address], 07/30/2022 20:22:35 06/17/19 23 MAMMO , scree fab, digit al, bilat eral [facility] TOT[facility] [address], [place] [address] [phone] Patimalvin t Name: MIRTA ORTEGA Access ion #: [id number] Sex: F : 1955 5 6 Locati on: RA2 Attend ing Physic alex: ELKHAT IB, RUNDA Orderi ng Physic alex: ELKHAT IB, RUNDA Exam Date: 023 9:58 AM Exam Name: DIGITA L AUDRA BILAT SCREEN Admitt ing [...] tion are seen. Page 1 of 2 [facility] Jordan t Name: MIRTA ORTEGA Access ion #: [id number] Sex: F : 1955 5 [birth year] Exam Date: 023 9:58 AM Exam Name: DIGITA L AUDRA BILAT SCREEN Admitt ing [...] Exam should be part of the period ic health exam-a bout every 3 years for women in their 20s and 30s and every year for women 40 and over. Breast self-e xam is an option for women in their 20s. Any breast change noted on the breast self-e xam she would be report ed prompt ly to the [facility] er. A negati ve mammog micah [...] 12:07 PM (CT) Page 2 of 2 [id number] [facility] (Imaging) [address] [place], [address], 07/30/2022 20:22:35 06/24/19 23 06/24/2022 imagi ng/di agnos tic resul t No observ ation record ed. [id number] [facility] [address], [place], [address], 07/30/2022 20:22:35 06/24/19 23 06/24/2022 imagi ng/di agnos tic resul t No observ ation record ed. [id number] [facility] [address], [place], [address], 07/30/2022 20:22:35 05/19/20 23 elect rocar diogr am No observ ation record ed. [email or web address] [facility] [address], [place], [address], 05/19/2023 15:08:41 07/06/19 24 07/03/[address] , [facility] No observ ation record ed. [email or web address] [facility] [address], [place], [address], 07/06/2023 16:52:31 07/30/19 24 07/30/2023 MAMMO , scree fab, digit al, bilat eral No observ ation record ed. [email or web address] [facility] [address] [place], [address], 07/30/2023 15:25:15 Result Notes Documentation Provider Name and Address Organization Details Recorded Time Mammo, Screening, Digital, Bilateral : [facility] [address] [place] [address] Patient Name: MIRTA ORTEGA Sex: F : 1955 Location: [facility] Attending Physician: MARIPOSA BECKER Ordering Physician: MARIPOSA BECKER Exam Date: 06/17/2022 9:58 AM Exam Name: DIGITAL AUDRA BILAT SCREEN Admitting Diagnosis(es): RADIOLOGY REPORT - FINAL EXAM: MG DIGITAL AUDRA BILAT SCREEN HISTORY: SCREENING MAMMOGRAM 66-year-old female with no current breast complaints. COMPARISON: None available. TECHNIQUE: Bilateral CC and MLO views of the breasts were performed. Digital Mammography images were obtained. CAD (computer assisted detection) was utilized. FINDINGS: There are scattered areas of fibroglandular density. No masses, asymmetries, suspicious calcifications, or architectural distortion are seen. Page 1 of 2 [facility] Patient Name: MIRTA ORTEGA Sex: F : 1955 Exam Date: 06/17/2022 9:58 AM Exam Name: DIGITAL AUDRA BILAT SCREEN Admitting Diagnosis(es): IMPRESSION: BIRADS 1: Assessment complete. Negative. Recommend annual screening mammography. According to the [employer], yearly mammograms are recommended starting at age 40 and continuing as long as the woman is in good health. Clinical Breast Exam should be part of the periodic health exam-about every 3 years for women in their 20s and 30s and every year for women 40 and over. Breast self-exam is an option for women in their 20s. Any breast change noted on the breast self-exam she would be reported promptly to the patient's health care provider. A negative mammography report should not discourage follow-up or biopsy of a clinically significant finding and/or abnormality. Dense breast tissue may obscure small neoplasms. This patient has been entered into a mammography reminder system with a target date for her next mammogram. Created and electronically signed by: Jose Lagos MD Signed Date: 06/17/2022 12:07 PM (CT) Dictated by: Jose Lagos MD (CT) (CT) Page 2 of 2 Not Available [facility] 07/30/2022 20:22:36 Problems Name Problem SNOMED Code Status Onset Date Resolution Date Notes Provider Name and Address Organization Details Recorded Time Plantar fasciitis of right foot 0734378118005 9101 Active 2020 Not Available [facility] 3 17:11:07 Constipati on 09955747 Active 2021 Not Available [facility] 3 17:11:07 Lung mass 064904240 Active 2021 Not Available [facility] 3 17:11:07 Osteopenia 545976483 Active 2020 Not Available [facility] 3 17:11:07 Pain in right foot 1771832053029 07 Active 2020 Not Available [facility] 3 17:11:07 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 Not Available [facility] 3 17:11:07 Former heavy tobacco smoker 8778145262205 00 Active 2020 Not Available [facility] 3 17:11:07 Hyperlipid emia 73807075 Active 2019 Not Available [facility] 3 17:11:07 Essential hypertensi on 90587644 Active 2021 Not Available [facility] 3 17:11:07 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 Not Available [facility] 3 17:11:07 Arthritis 1754462 Active 2022 Not Available [facility] 3 17:11:07 Dysuria 67113378 Active 2022 [facility] [address], [place], [address] , Need Fixed 3 15:35:17 Acute urinary tract infection 495547710 Active 2022 [facility] [address], [place], [address] , Need Fixed 3 16:29:11 Pre-surger y evaluation Active 2022 [facility] [address], [place], [address] , Need Fixed 3 15:07:34 Deep venous thrombosis 453121237 Active 2023 Right knee [facility] [address], [place], [address] , Need Fixed 4 09:48:46 Problem Notes None recorded. Procedures Surgical History Date Name Laterality Status Provider Name and Address Organization Details Recorded Time 07/30/19 24 screening mammography completed Marilee Lindsey RN [facility] 07/30/2023 15:25:11 07/16/19 24 Transitional_Care_ Management completed Karen Mario RN [facility] 07/16/2023 09:28:52 06/18/19 24 Knee Replacement completed Karen Mario RN [place] [facility] 07/16/2023 09:36:45 09/03/19 23 Medicare Wellness CPT Code, Initial completed Luz Marina Whitney RN [facility] [employer] 09/01/2022 11:57:10 09/20/19 21 Most Recent Mammogram completed Not Available [facility] 07/30/2022 20:19:40 06/01/19 21 cardiac catheterization completed Karen Mario RN [place] - [place] [employer] [facility] 07/16/2023 09:37:38 Imaging Results None recorded. Procedure Notes None recorded. Medical Equipment None [...] Available Not Available Vitals Date Recorded Body height Body mass index (BMI) Body weight Body temperature Heart rate Oxygen saturation Oxygen saturation in Arterial blood by Pulse oximetry Systolic blood pressure Diastolic blood pressure Provider Name and Address Organization Details Last Updated DateTime 4 160.02 cm 28.9 kg/m2 18687.5 6 g 97.9 [degF] 69 /min 98 % 98 % 116 mm[Hg] 76 mm[Hg] Karen Mario RN [facility] [employer] 4 09:39:20 Date Recorded Body height Body mass index (BMI) Body weight Body temperature Heart rate Oxygen saturation Oxygen saturation in Arterial blood by Pulse oximetry Systolic blood pressure Diastolic blood pressure Provider Name and Address Organization Details Last Updated DateTime 3 160.02 cm 29.9 kg/m2 80046.1 1 g 96.6 [degF] 72 /min 97 % 97 % 142 mm[Hg] 80 mm[Hg] OSMAN Garcia [facility] [employer] 3 10:57:29 Date Recorded Body mass index (BMI) Body height Oxygen saturation Oxygen saturation in Arterial blood by Pulse oximetry Heart rate Body temperature Body weight Systolic blood pressure Diastolic blood pressure Provider Name and Address Organization Details Last Updated DateTime 2 30.6 kg/m2 160.02 cm 98 % 98 % 80 /min 97.2 [degF] 80664.4 8 g 170 mm[Hg] 90 mm[Hg] Not Available [facility] 3 20:20:09 Date Recorded Body height Body mass index (BMI) Body weight Body temperature Heart rate Oxygen saturation Oxygen saturation in Arterial blood by Pulse oximetry Systolic blood pressure Diastolic blood pressure Provider Name and Address Organization Details Last Updated DateTime 3 160.02 cm 29.6 kg/m2 19098.9 3 g 97.6 [degF] 76 /min 97 % 97 % 156 mm[Hg] 82 mm[Hg] Katerine Holt MA [place] - [facility] [employer] [facility] 3 14:49:13 Social History Question Answer Notes LastModified by [employer] Details LastModified Time Tobacco Smoking Status Former Smoker Not Available [facility] 07/30/2022 20:19:33 What Is Your Level Of Caffeine Consumption? Moderate [id number] Information not available 07/30/2022 Which Illicit Or Recreational Drugs Have You Used? None [id number] Information not available 07/30/2022 When Did You Quit Smoking? 6-10yearssinc elastcigarett e [id number] Information not available 07/30/2022 What Is Your Current Pack Years? 30ormorepacky ears [id number] Information not available 07/30/2022 At What Age Did You Start Smoking Tobacco? 12 [id number] Information not available 07/30/2022 How Much Tobacco Do You Smoke? 1 PPD [id number] Information not available 07/30/2022 Sex: Unknown Functional Status Question Answer Note LastModified by [employer] Details LastModified Time Do you or have you ever used any other forms of tobacco or nicotine? No [id number] Information not available 07/30/2022 What is your level of alcohol consumption? Moderate [id number] Information not available 07/30/2022 Do you or have you ever used e-cigarettes or vape? Never used electronic cigarettes [id number] Information not available 07/30/2022 What is your exercise level? Occasional [id number] Information not available 07/30/2022 Mental Status None recorded. Family History Relationship Description Onset Age of this Age Resolved Age Notes LastModified by Organization Details LastModified Time Mother Hypertensive disorder [id number] Not available 07/30/2022 20:19:41 Mother Squamous cell carcinoma of lung [email or web address] Not available 07/16 09:26:40 Brother Hypertensive disorder [id number] Not available 07/30/2022 20:19:41 Sister Hypertensive disorder [id number] Not available 07/30/2022 20:19:41 Father Myocardial infarction [id number] Not available 07/30/2022 20:19:42 Maternal Grandmother Cerebrovascu lar accident [email or web address] Not available 09:26:40 Medical History Condition Response HIGH CHOLESTEROL / HYPERLIPIDEMIA Y HYPERTENSION Y Gynecological History Statement/Question Response Most Recent Mammogram 09/19/2020 Obstetrics History GPAL:G 0 P 0 0 0 0 Immunizations Vaccine Type Date Status Note Provider Nam e and Address Organization Details Recorded Time Influenza, split virus, quadrivalent, preservative 2 completed Not Available [facility] 07/30/2022 20:22:26 COVID-19, mRNA, LNP-S, PF, 100 mcg/0.5mL dose or 50 mcg/0.25mL dose 1 completed Not Available [facility] 07/30/2022 20:22:26 COVID-19, mRNA, LNP-S, PF, 100 mcg/0.5mL dose or 50 mcg/0.25mL dose 1 completed Not Available [facility] 07/30/2022 20:22:26 Influenza, split virus, quadrivalent, preservative 0 completed Not Available [facility] 07/30/2022 20:22:26 Pneumococcal conjugate PCV 13 1 completed Not Available [facility] 07/30/2022 20:22:27 Past Encounters Encounter ID Performer Location Encounter Start Date Encounter Closed Date Diagnosis/Indication Diagnosis SNOMED-CT Code Diagnosis ICD10 Code Diagnosis Note [id number] [facility] To[facility] [place] [address] [place] [address] 08/27/2020 00:00:00 08/28/2020 08:29:49 [id number] [facility] Podiatry Alexi Minaya [address] [place] [address] 11/15/2020 00:00:00 11/15/2020 13:34:11 [id number] Mariposa Glover MD [facility] [place] [address] [place] [address] 04/10/2021 00:00:00 04/10/2021 12:18:27 [id number] Mariposa Glover MD [facility] [place] [facility] [address] [place] [address] 04/22/2021 00:00:00 04/22/2021 15:30:05 [id number] [facility] [place] ic_[facility] [place] [facility] [address] [place] [address] 07/30/2021 00:00:00 07/30/2021 10:54:19 [id number] Mariposa Glover MD [facility] [place] [facility] [address] [place] [address] 09/02/2021 00:00:00 09/02/2021 10:27:07 [id number] Mariposa Glover MD [facility] [place] [address] [place] [address] y , [place] [address] 03/17/2022 00:00:00 03/17/2022 10:26:38 [id number] Mariposa Glover MD [facility] [place] [address] [place] [address] y , [place] [address] 09/02/2022 10:48:59 09/02/2022 11:11:34 Adult health examination 075752132 Z00.00 Screening for disorder 090550447 Z13.9 [id number] Mariposa Glover MD [facility] [place] [address] [place] [address] 04/07/2023 15:26:21 04/10/2023 16:56:51 Dysuria 00243677 R30.0 [id number] Mariposa Glover MD [facility] [place] [address] [place] [address] 05/19/2023 14:23:03 05/19/2023 15:31:27 Pre-surgery evaluation [id number] Z01.818 Essential hypertension 06812369 I10 Hyperlipidemia 03720011 E78.5 Plantar fa sciitis of right foot 5698157238 [id number] M72.2 [id number] Mariposa Glover MD [facility] [place] [address] [place] [address] 07/16/2023 09:26:00 07/16/2023 09:52:19 Transition of care [id number] 105 Z75.8 Deep venou s thrombosis 504598781 I82.409 Arthritis 5410243 M19.90 Essential hypertension 31547888 I10 Hyperlipidemia 59434200 E78.5 Osteopenia 444315839 M85 .80 Health Concerns Section Related Observation LastModified by Organization Detai ls LastModified Time None Recorded Concern Status LastModified by Organization Details LastModified Time None Recorded Advance Directives Directive None Recorded Payers Insurance Date Sequence Insurance Name Policy Number Policy Chavez Covered Member ID Chavez Member ID Guarantor Name 07/27/2023 1 [facility] (MEDICARE REPLACEMENT/A DVANTAGE - HMO) [id number] Mirta Ortega [id number] Mirta Ortega Notes Date Note Type Note Provider Name [...] on spleen and kidney. Mariposa Glover MD [address] [place] [address], [facility] [address], [place], [address], [facility] [employer] 09/03/2022 06:19:53 05/19/2023 text/html here for catracho ce for surgery: Right total knee replacement AYLA Connors [address], [place], [address], [employer] 05/30/2023 11:02:28 07/16/2023 text/html right knee replaced in June . DVT Xarelto AYLA Connors [address], [place], [address], [employer] 07/25/2023 16:10:57 OBGyn Episode No OBEpisode recorded.
--- NOTE | 2024-11-13 21:21 | ECG_ITS ---
Test Date: 2024-11-13 21:52:15 Measurements Intervals [facility] Rate: 72 P: 36 DE: 158 QRS: -15 QRSD: 82 T: 21 QT: 398 QTc: 438 Interpretive Statements SINUS RHYTHM EARLY PRECORDIAL R/S TRANSITION BASELINE ARTIFACT- I, II, III, AVR, AVL, AVF BORDERLINE ECG No previous ECG available for comparison Electronically Signed On 11-14-2024 06:22:04 CDT by Placido Blevins D.O.
--- NOTE | 2024-11-13 21:30 | PC.NURSE ---
pt to ct via stretcher. will obtain ekg when pt returns to er room 9.
[2024-11-13 21:31] LABS: Glucose Point of Care 127 mg/dl (65-105)
[2024-11-13 21:46] LABS: Basophils Percent Auto 0.5 % (0.2-1.2); Eosinophils Absolute Auto 0.1 K/mm3 (0-0.3); Eosinophils Percent Auto 2.5 % (0-4.4); Hemoglobin 12.4 g/dL (12.0-15.0); Immature Granulocyte Absolute 0.08 K/mm3 (0.00-0.031); Immature Granulocyte Percent A 1.4 % (0-0.5); Lymphocytes Percent Auto 36.8 % (18.3-44.2); Mean Corpuscular HGB Conc 32.6 g/dl (32-36); Mean Corpuscular Hemoglobin 28.7 pg (26-34); Mean Platelet Volume 9.3 fl (7.4-10.4); Monocytes Absolute Auto 0.4 K/mm3 (0.1-0.6); Monocytes Percent Auto 7.5 % (2.6-8.5); Neutrophils Absolute Auto 2.9 K/mm3 (1.3-6.7); Neutrophils Percent Auto 51.3 % (45.5-73.1); Platelet Count Result 294 k/mm3 (150-375); Red Blood Count 4.32 M/mm3 (4.2-5.4); Red Cell Distribution Width 12.5 % (11.5-14.5); White Blood Count 5.7 K/mm3 (4.5-10.0)
[2024-11-13 21:55] LABS: Alanine Aminotransferase 26 U/L (6-35); Albumin Level 4.6 g/dL (3.5-5.1); Alkaline Phosphatase 75 U/L (38-126); Anion Gap 12 mmol/L (4-12); Aspartate Amino Transferase 29 U/L (14-36); Bilirubin,Total 0.3 mg/dL (0.2-1.3); Blood Urea Nitrogen 28 mg/dL (7-17); Calcium 9.6 mg/dL (8.4-10.2); Carbon Dioxide 23 mmol/L (22-30); Chloride 104 mmol/L (98-107); Estimated CRCL calculation 44 ml/min; Estimated Glomerular Filt Rate 51; Glucose 119 mg/dL (65-110); Magnesium 1.9 mg/dL (1.6-2.3); Potassium 4.1 mmol/L (3.4-5.0); Sodium 139 mmol/L (137-145); Total Protein 7.5 g/dL (6.3-8.2)
--- OUTSIDE RECORDS SUMMARY | 2024-11-13 21:56 | XMS_ITS | Referral Summary ---
Author Organization [facility] Address [address] [place] [address] Phone Care Team Providers Care Wharfinger Chief Name Role Phone Mark Page MD Primary Care Provider Encounters Date Type Department Care Team Description 08/16/2024 Results Follow-Up [facility] Medical Group Primary Care at [address] [place] [address] Mark Page MD SCAN - LABS 08/15/2024 Orders Only [facility] [address] [place], [place] [id number] Mark Page MD from Last 3 Months [...] 08/05/2024 Assessment & Plan (08/05/2024 6:05 AM PROGRAMMING MANAGER): Wt Readings from Last 3 Encounters: 08/04/24 [...] 08/04/2024 Assessment & Plan (08/05/2024 6:02 AM PROGRAMMING MANAGER): - New or chronic worsening conditions: no [...] 08/23 Assessment & Plan (08/05/2024 6:01 AM PROGRAMMING MANAGER): -chronic, controlled -patient currently takes metformin 500 mg daily -reiterated importance of diabetic foot and eye exams -will recheck lab work -continue current treatment plan Vitamin D deficiency 08/04/2024 Overview (08/16/2024): Vitamin D 50+ 08/23 Assessment & Plan (08/05/2024 6:01 AM PROGRAMMING MANAGER): -chronic, controlled -patient currently takes vitamin D3 supplement -will recheck lab value -continue current treatment plan 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.] 73 Assessment & Plan (08/05/2024 5:58 AM PROGRAMMING MANAGER): -chronic, controlled -Previously prescribed simvastatin 20 mg [...] on file Legal Sex Female 2:08 AM PROGRAMMING MANAGER Gender Identity Not on file Sexual Orientation Not on file Last Filed Vital Signs Vital Sign Reading Time Taken Comments Blood Pressure 135/85 08/04/2024 10:41 AM PROGRAMMING MANAGER typical blood pressure reading at home Pulse 67 08/04/2024 10:15 AM PROGRAMMING MANAGER Temperature 36.5 C (97.7 F) 08/04/2024 10:15 AM PROGRAMMING MANAGER Respiratory Rate 16 08/04/2024 10:1 5 AM PROGRAMMING MANAGER Oxygen Saturation 96% 08/04/2024 10: 15 AM PROGRAMMING MANAGER Inhaled Oxygen Concentration - - Weight 74 kg (163 lb 3.2 oz) 08/04/2024 10:15 AM PROGRAMMING MANAGER Height 160 cm (5' 2.99) 08/04/2024 10: 15 AM PROGRAMMING MANAGER Body Mass Index 28.92 08/04/2024 10:15 AM PROGRAMMING MANAGER Plan of Treatment Not on file Procedures Procedure Name Priority Date/Time Associated Diagnosis Comments SCAN - LABS 08/15/2024 COLONOSCOPY Routine 07/08/2022 SCREENING MAMMOGRAM BILATERAL W SANTIAGO Schedule Routine, Read Routine (OP Routine) 09/19/2020 1:32 PM CDT Encounter for screening mammogram for malignant neoplasm of breast DEXA AXIAL SKELETON BONE DENSITY 1 OR MORE SITES Schedule Routine, Read Routine (OP Routine) 07/15/2019 11:08 AM PROGRAMMING MANAGER Screening for osteoporosis from Last 3 Months [...] 1 or 2 Site (07/15/2019 11:08 AM PROGRAMMING MANAGER) Anatomical Region Laterality Modality Body N/A Digital Radiogra phy 07/15/2019 11:1 5 AM PROGRAMMING MANAGER Impressions 07/15/2019 11:16 AM PROGRAMMING MANAGER Low bone mass (osteopenia) which depending on the clinical circumstances may result in a moderate increased risk of fragility fracture. If followup is to be done, for technical reasons, it should be performed on this same machine. Electronically signed by: Vinny Cordero M.D. Narrative 07/15/2019 11:16 AM PROGRAMMING MANAGER EXAM: Bone mineral density [facility]. HISTORY: Postmenopausal. Hormone replacement therapy. Calcium and vitamin D supplementation. Assess for osteoporosis. DXA BMD was done at [facility] on a [employer] Radar CI. Precision testing at this site has [...] MD - 07/15/2019 EXAM: Bone mineral density [facility]. HISTORY: Postmenopausal. Hormone replacement therapy. Calcium and vitamin D supplementation. Assess for osteoporosis. DXA BMD was done at [facility] on a [employer] CI. Precision testing at this site [...] Most Recently Relevant to Health Maintenance Insurance [facility] CHOICE PLUS [facility] HMO/PPO Address: [facility] [address] [place] [address] MDCR HMO REF [facility] MEDICARE Address: [address] [place], [place] [id number] MEDICARE ADVANTAGE [facility] MEDICARE Address: [place] [id number] [place] [phone] Care Teams Wharfinger Chief Relationship Specialty Start Date End Date Mark Page MD PCP - General Family Medicine 08/04/24
--- OUTSIDE RECORDS SUMMARY | 2024-11-13 21:56 | XMS_ITS | Clinical Summary ---
Author Organization [facility] [facility] Address [address] [place] [address] Care Team Providers Care French Teacher Name Role Phone Susanjody Dior CARRINGTON-FISH HATCHERY SUPERINTENDENT Primary Care Provider + Source Comments [facility],non-owned Affiliates and Associated Physician Practices is amultiple site organization consisting of ambulatory clinics and hospital sitesin [place], [place], [place] and [place]. This disclosure is being madepursuant to the Care Everywhere program and may not contain all information available regarding this patient. Last updated 18.[facility] [employer] [facility] Allergies Active Allergy Reactions Criticality Noted Date [...] MCG/ACT nasal sprayIndications :Acute bronchitis, unspecified organism [place]ua [place] 1 [place] into each nostril 2 times daily 1 [...] on file Legal Sex Female 4:39 AM CASINO MANAGER Gender Identity Not on file Sexual Orientation Not on file Occupation Industry Job Start Date Job End Date retired Not on file Not on file Not on file Last Filed Vital Signs Vital Sign Reading Time Taken Comments Blood Pressure 114/78 06/25/2016 9:24 AM CASINO MANAGER Pulse 89 06/25/2016 9:24 AM CASINO MANAGER Temperature 37.4 C (99.4 F) 06/25/2016 9:24 AM CASINO MANAGER Respiratory Rate 16 06/25/2016 9:24 AM CASINO MANAGER Oxygen Saturation 96% 06/25/2016 9:24 AM CASINO MANAGER Inhaled Oxygen Concentration - - Weight 74.8 kg (165 lb) 06/25/2016 9:24 AM CASINO MANAGER Height 160 cm (5' 3) 06/25/2016 9:24 AM CASINO MANAGER Body Mass Index 29.23 06/25/2016 9:24 AM CASINO MANAGER Plan of Treatment Health Maintenance Due Date [...] PM CDT Narrative Resulting Agency Comment [facility] [address] [facility] [phone] us Blas Lyons MD LAB - CHEMISTRY ORDERABLES Final Result [facility] ACCOUNT BILL [address] [place] [address] from Last 3 Months or Most Recently Relevant to Health Maintenance Insurance [facility] MANAGED MEDICARE ADV SELF PAY NO INSURANCE Member Subscriber Plan / Payer (Ef fective for All Dates) Name:Mirta Reyes Member ID:Not on file Relation to Subscriber:Not on file Name:ERICMIRTA Subscriber ID:Not on file (Home) Address: [address] [place] [address] Payer ID:Not on file Group ID:Not on file Type:Self Pay Address: [place], [place] [facility] MANAGED MEDICARE ADV Care Teams French Teacher Relationship Specialty Start Date End Date Dior Anderson APRN-CNP [address] [address] PCP - General 01/28/21
--- OUTSIDE RECORDS SUMMARY | 2024-11-13 21:56 | XMS_ITS | Clinical Summary ---
Author Organization [facility] Address [address] [place] [address] Phone Care Team Providers Care Cherry Dipper Name Role Phone Mark Page MD Primary [...] 08/05/2024 Assessment & Plan (08/05/2024 6:05 AM WELT CUTTER): Wt Readings from Last 3 Encounters: 08/04/24 [...] 08/04/2024 Assessment & Plan (08/05/2024 6:02 AM WELT CUTTER): - New or chronic worsening conditions: no [...] 08/23 Assessment & Plan (08/05/2024 6:01 AM WELT CUTTER): -chronic, controlled -patient currently takes metformin 500 mg daily -reiterated importance of diabetic foot and eye exams -will recheck lab work -continue current treatment plan Vitamin D deficiency 08/04/2024 Overview (08/16/2024): Vitamin D 50+ 08/23 Assessment & Plan (08/05/2024 6:01 AM WELT CUTTER): -chronic, controlled -patient currently takes vitamin D3 supplement -will recheck lab value -continue current treatment plan 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 Hypertension 06/14/2021 Assessment & Plan (08/05/2024 5:59 AM WELT CUTTER): BP Readings from Last 3 Encounters: 08/04/24 135/85 05/15/17 130/72 05/13/16 120/86 -chronic, at goal of <140/90 -currently taking metoprolol 50 mg, losartan-hydrochlorothiazide 50-12.5 mg daily -patient reports checking blood pressure regularly at home -encourage patient to continue low-sodium diet -continue current treatment plan Lung mass 06/14/2021 Personal history of tobacco use 06/14/2021 Assessment & Plan (08/05/2024 6:04 AM WELT CUTTER): Tobacco Use: Medium Risk (08/04/2024) Patient History [...] 73 Assessment & Plan (08/05/2024 5:58 AM WELT CUTTER): -chronic, controlled -Previously prescribed simvastatin 20 mg -Discussed importance of well-balanced diet -will recheck lab values -continue current treatment plan Pulmonary nodule 03/29/2008 Encounters Date Type Department Care Team Description 08/16/2024 Results Follow-Up [facility] Medical [facility] Primary Care at [address] [place] [address] Mark Page MD SCAN - LABS 08/15/2024 Orders Only [facility] Health Information Management [address] [place] [address] Mark Page MD from Last 3 Months [...] on file Legal Sex Female 2:08 AM WELT CUTTER Gender Identity Not on file Sexual Orientation Not on file Obstetrics History Last Filed Vital Signs Vital Sign Reading Time Taken Comments Blood Pressure 135/85 08/04/2024 10:41 AM WELT CUTTER typical blood pressure reading at home Pulse 67 08/04/2024 10:15 AM WELT CUTTER Temperature 36.5 C (97.7 F) 08/04/2024 10:15 AM WELT CUTTER Respiratory Rate 16 08/04/2024 10:1 5 AM WELT CUTTER Oxygen Saturation 96% 08/04/2024 10: 15 AM WELT CUTTER Inhaled Oxygen Concentration - - Weight 74 kg (163 lb 3.2 oz) 08/04/2024 10:15 AM WELT CUTTER Height 160 cm (5' 2.99) 08/04/2024 10: 15 AM WELT CUTTER Body Mass Index 28.92 08/04/2024 10:15 AM WELT CUTTER Plan of Treatment Health Maintenance Due Date [...] Read Routine (OP Routine) 07/15/2019 11:08 AM WELT CUTTER Screening for osteoporosis from Last 3 Months [...] 1 or 2 Site (07/15/2019 11:08 AM WELT CUTTER) Anatomical Region Laterality Modality Body N/A Digital Radiogra phy 07/15/2019 11:1 5 AM WELT CUTTER Impressions 07/15/2019 11:16 AM WELT CUTTER Low bone mass (osteopenia) which depending on the clinical circumstances may result in a moderate increased risk of fragility fracture. If followup is to be done, for technical reasons, it should be performed on this same machine. Electronically signed by: Vinny Cordero M.D. Narrative 07/15/2019 11:16 AM WELT CUTTER EXAM: Bone mineral density [facility]. HISTORY: Postmenopausal. Hormone replacement therapy. Calcium and vitamin D supplementation. Assess for osteoporosis. DXA BMD was done at [facility] on a [employer] CI. Precision testing at this site has [...] MD - 07/15/2019 EXAM: Bone mineral density [facility]. HISTORY: Postmenopausal. Hormone replacement therapy. Calcium and vitamin D supplementation. Assess for osteoporosis. DXA BMD was done at [facility] on a [employer] CI. Precision testing at this site has [...] Most Recently Relevant to Health Maintenance Insurance [facility] CHOICE PLUS MDCR HMO REF MEDICARE ADVANTAGE Care Teams Cherry Dipper Relationship Specialty Start Date End Date Mark Page MD PCP - General Family Medicine 08/04/24
--- OUTSIDE RECORDS SUMMARY | 2024-11-13 21:57 | XMS_ITS | CONTINUITY OF CARE DOCUMENT ---
Author Name leticia kelly Address Unknown Organization [facility] Address [address] [place] [address] Phone [phone] Care Team Providers Care Tie Man Name Role Phone Chi MORALEZ, Gildardo Unavailable [phone] Unavailable STACY BECKER MD Unavailable [phone] PROBLEMS Condition Status Date Provider Notes Cardiology [...] In-person encounter Office Visit Jayro Martinez DO [facility] - In-person encounter Office Visit Quang Marcus MD [facility] Preoperative cardiovascular examination - In-person encounter Office Visit Gildardo Mireles MD [facility] - In-person encounter Office Visit Gildardo Mireles MD [facility] Left renal artery aneurysm, 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 weight E&M 168 [lb_av] Iliana [facility] height E&M 63 [in_i] Iliana Farzana [facility] Body Mass Index (Ratio) 31.07 kg/m2 [...] blood pressure, diastolic 105 mm[Hg] Ca therine Homer blood pressure, systolic 164 mm[Hg] Cat herine Homer oxygen saturation, oximetry 97 % Liana Homer respiratory rate E&M 14 /min Catheri ne Homer pulse rate 64 /min Liana Osbaldo weight E&M 178 [lb_av] Liana Osbaldo blood pressure, cuff size regular Ca therine Homer height E&M 63 [in_i] Liana Sobaldo Body Mass Index (Ratio) 31.53 kg/m2 Jose Villegas blood pressure, cuff size large Mi alvin [place] blood pressure, diastolic 100 mm[Hg] Mi alvin [place] blood pressure, systolic 160 mm[Hg] Sage helle [place] pulse rate 88 /min Fanny cool oxygen [...] High 6 cholesterol, serum 193 mg/dL [employer] [phone]/01/2 6 calcium, serum 10.1 mg/dL [facility] 8.7-10.3 6 carbon dioxide, venous blood 26 mmol/L [employer] 20-29 6 chloride, serum 99 mmol/L [employer] 96-106 6 potassium, serum 4.3 mmol/L [employer] 3.5-5.2 6 sodium, serum 139 mmol/L [employer] 160-711 4010/01/2 6 urea nitrogen/creatinin e ratio, serum 25 [...] Estab. 6 platelet count 302 X10E3/UL [employer] [phone]/01/2 6 red blood cell distribution width 12.1 [...] democrat ID [employer] MEDICARE ADVANTAGE HMO-POS HMO [id number] ADVANCE DIRECTIVES Name Date DISCUSSED - NO DECISION MADE TREATMENT PLAN Date Name Performer [id number],C,B P elevated today at 159/95. Advised reduced sodium intake and routine monitoring of the blood pressure. We aim for less than 130/80. Gildardo Mireles MD [id number],S, F ollowed by CT chest yearly. Gildardo Mireles MD [id number],C, S /p recent renal and celiac angiogram showing small left renal artery aneurysm, 10-20% stenosis of the mid right renal artery, and normal celiac artery angiogram with a tortuous splenic artery but no aneurysm was noted. Recent CT showed 1.2 cm aneurysm. We will continue to monitor with a yearly CT of the abdomen. Gildardo Mireles MD [id number],S, O n simvastatin. Recent LDL 114. Gildardo Mireles MD [id number],S, S /p recent renal and celiac angiogram showing small left renal artery aneurysm, 10-20% stenosis of the mid right renal artery, and normal celiac artery angiogram with a tortuous splenic artery but no aneurysm was noted. We will repeat her renal CTA in 1 year. Gildardo Mireles MD [id number],C, B P today 164/105. Advised routine home BP monitoring and dietary sodium restriction. Gildardo Mireles MD [id number],S, O n simvastatin. Recent LDL 114. Gildardo Mireles MD [id number],S, S /p recent renal and celiac angiogram showing small left renal artery aneurysm, 10-20% stenosis of the mid right renal artery, and normal celiac artery angiogram with a tortuous splenic artery but no aneurysm was noted. Gildardo Mireles MD [id number],S,O n simvastatin. Will obtain a recent lipid panel from your office. Prateek Mccormickhenok [id number],C,Followed by [place] [facility] chest yearly. Gildardo Mireles MD [id number],C,A ngiogram to evaluate the aneurysm explained. Gildardo Mireles MD [id number],C, I ncidental finding of left renal artery aneurysm on CT scan. No symptoms. Will arrange a renal angiogram to evaluate the size of aneurysm. Details of angiogram discussed with patient. Risk and benefits explained.to patient and .Agreeable to proceed. Gildardo Mireles MD [id number],[place], T he blood pressure medications were recently increased by her primary care. Will monitor BP and adjust antihypertensives. Gildardo Mireles MD [id number],[place], W ill discuss this with interventionalist and vascular surgeon. Gildardo Mireles MD [id number],[place], I f the patient is asymptomatic, will discuss this with interventionalist and vascular surgeon. Gildardo Mireles MD [id number],[place], T he blood pressure medications were recently [...] tatus EKG Jayro Martinez DO completed EKG Quagn Marcus MD completed EKG Gildardo Mireles MD complet ed EKG Gildardo Mireles MD complet ed
--- OUTSIDE RECORDS SUMMARY | 2024-11-13 21:57 | XMS_ITS | Continuity of Care Document ---
Author Organization [facility] Address [address] [place] [address] Phone Care Team Providers Care Engineer Technician Name Role Phone Ira Nichols MD Unavailable Unavailable Advance Directives Directive Yes / No Effective Date File Name No Information Encounters Encounter Description Practice Location Reason(s) For Visit Diagnoses Date Provider Providers Copied on Encounter [facility], [address], [place], [place], [id number], tel:[phone] [facility] No Information Magdalena Roth. [address] [place] [address], [id number], . tel:[phone] Family History Family Member Type Diagnosis Age At Onset No Information Payers Payer name Insurance type Covered alliance party ID Authoriza tion(s) No Information Social History [...]
--- NOTE | 2024-11-13 22:30 | P.HP_ITS ---
H&P: HPI History of Present Illness Date/Time: 11/13/24 22:30 Chief Complaint: Right arm tingling. Narrative: This is a very pleasant 69-year-old female with hypertension and prediabetes who presented to the emergency department via private vehicle for evaluation of right arm tingling. At about 11:00 she was standing at the kitchen counter when she developed sudden onset numbness and tingling in the right hand and arm. It resolved within a short period of time however has reoccurred intermittently, at times affecting only a couple of fingers on the right hand or the right side of the lower face or the right lower lip. Additionally she seemed to be lacking some coordination with the right hand and says that she had difficulties controlling the arm. Example includes difficulties tucking her hair behind her ear. She also has a mild headache and states that her blood pressures have been running high, in the 170s systolic. She denies vertigo, visual changes, facial droop, troubles speaking and swallowing, focal weakness, palpitations, and racing heart. She denies neck or upper extremity pain. Currently she is without symptoms. In the ED: Blood pressure was 179/74 on arrival. She is in a sinus rhythm with no concerning findings on EKG. Labs were significant for a BUN and creatinine of 28 and 1.06 respectively and a glucose of 119. Head CT showed no acute intracranial hemorrhage but did note asymmetry of the left cerebellopontine angle. She is being admitted in this setting for close monitoring, further workup, and neurology consultation. Review of Systems Review of Systems: 12 systems were reviewed and are negativ e except for as per HPI. [facility] Past Medical History Medical History (Updated 11/14/24 @ 00:21 by Carlota Williamson PA-C) Deep venous thrombosis small DVT following knee replacement surgery Hiatal hernia Renal arterial aneurysm Gastroesophageal reflux disease Esophageal ring Osteoarthritis Hyperlipidemia Hypertension Surgical History Surgical History History of section History of bilateral knee arthroplasty (2023) History of hysteroscopy (08/18/24) with polypectomy and uterine curettings History of conization of cervix age 26 Family History Family History Mother Hypertension Lung cancer Sibling Hypertension brother and sister Uterine cancer sister Father Acute myocardial infarction Grandparent Cerebrovascular accident Maternal grandmother Social History Social History (Updated 11/14/24 @ 00:19 by Carlota Williamson PA-C) Social History: Surrogate medical decision maker: Zayra Connolly (daughter) or Esa Reyes (spouse). Code status: Full code. Smoking packs per day: 0.75 Smoking cigarettes per day: 15.0 Years smoked: 20 Smoking pack-years: 15.00 Smoking status: Never smoker Tobacco type: cigarettes Second hand tobacco smoke exposure: Yes Smoking end date: 11/29/01 Alcohol intake: current Drinks per week: 10 Substance use: never Substance use type: does not use Do You Feel Safe in your Home?: Yes Lack of Transportation: No Lack of Food: Never True Current Housing: I Have Housing Concerned About Future Housing: No Difficulty Paying Gas/Electric Bills: No Difficulty Paying for Meds: No Currently Unemployed: No Education: High School Diploma/GED Difficulty w/ Childcare or Family Care: No Living arrangements: with family Additional living arrangements comments: Occupation/Education: retired Spiritual care concerns: No Agree to blood products: Yes Meds Home Medications and Allergies Home Medications ?Medication ?Instructions ?Recorded ?Confirmed ?Type calcium carbonate (Calcium 600) 600 mg PO DAILY 08/11/23 11/13/24 History metoprolol succinate 50 mg 50 mg PO BID #180 tabs 06/08/24 11/13/24 Rx tablet,extended release 24 hr trazodone 50 mg tablet See Rx Instructions .Route 07/25/24 11/13/24 Rx .COMPLEX #90 tabs acyclovir 400 mg tablet 400 mg PO TID PRN FEVER BLISTERS 08/12/24 11/13/24 History aspirin 81 mg tablet,delayed 81 mg PO HS 08/12/24 11/13/24 History release diclofenac sodium 75 mg 75 mg PO Q12H pain 08/12/24 11/13/24 History tablet,delayed release famotidine 20 mg tablet 20 mg PO Q12H 08/12/24 11/13/24 History losartan 50 mg-hydrochlorothiazide See Rx Instructions .Route 10/17/24 11/13/24 Rx 12.5 mg tablet .COMPLEX #90 tabs metformin 500 mg tablet,extended See Rx Instructions .Route 10/17/24 11/13/24 Rx release 24 hr .COMPLEX #90 tabs simethicone 125 mg capsule (Gas 125 mg PO DAILY 11/13/24 11/13/24 History Relief (simethicone)) simvastatin 40 mg tablet 40 mg PO QPM 11/13/24 11/13/24 History Allergies Allergy/AdvReac Type Severity Reaction Status Date / Time codeine AdvReac Intermediate Itching Verified 11/13/24 20:28 Vital Signs Vital Signs - 24 hr 11/13/24 20:25 Temperature 97.7 F Pulse Rate 77 Respiratory Rate 18 Blood Pressure 179/74 H Pulse Oximetry 100 Oxygen Delivery Room Air Exam Narrative: General: Well-developed, nontoxic-appearing female supine in bed in no distress. Weight: 78.6 kg. BMI: 30.7. HEENT: PERRL, EOMI. Sclera anicteric. Oral mucosa moist. Neck: Supple. No carotid bruits. Respiratory: Lungs are clear to auscultation bilaterally. Cardiovascular: Regular rate and rhythm with S1-S2. Gastrointestinal: Abdomen is soft, nontender, and nondistended with positive bowel sounds. Skin: Warm and dry. No rash or lesions on limited exam. Extremities: No cyanosis, clubbing, or edema. Radial and pedal pulses intact. Neurological: Alert and oriented. Cranial nerves 2-12 are grossly intact. Spee ch is clear. No facial asymmetry. Normal [id number] and rapid alternating movements. No drift of the upper or lower extremities. Sensation intact at this time. Psychiatric: Pleasant and cooperative with normal mood and affect. Judgment and insight intact. H&P: Results Labs Labs: Short CBC 11/13/24 Range/Units 21:27 WBC 5.7 (4.5-10.0) K/mm3 Hgb 12.4 (12.0-15.0) g/dL Hct 38.0 (37.0-47.0) % Plt Count 294 (150-375) k/mm3 BMP 11/13/24 21:27 Sodium 139 Potassium 4.1 Chloride 104 Carbon Dioxide 23 BUN 28 H D Creatinine 1.06 H Glucose 119 H Calcium 9.6 Liver Function 11/13/24 Range/Units 21:27 Total Bilirubin 0.3 (0.2-1.3) mg/dL AST 29 (14-36) U/L ALT 26 (6-35) U/L Alkaline Phosphatase 75 (38-126) U/L Albumin 4.6 (3.5-5.1) g/dL Imaging Head CT 11/13/24 21:38 Impression: No acute intracranial hemorrhage. Asymmetry of the left cerebellopontine angle which follow-up with contrast enhanced MRI is recommended. Assessment and Plan Assessment and plan (1) Paresthesia: Code(s): R20.2 - Paresthesia of skin Status: Acute (2) Abnormal brain CT: Code(s): R90.89 - Other abnormal findings on diagnostic imaging of central nervous system Status: Acute (3) Elevated serum creatinine: Code(s): R79.89 - Other specified abnormal findings of blood chemistry Status: Acute (4) Hypertension: Code(s): I10 - Essential (primary) hypertension Status: Acute (5) Hyperlipidemia: Code(s): E78.5 - Hyperlipidemia, unspecified Status: Acute (6) Prediabetes: Code(s): R73.03 - Prediabetes Status: Acute Plan The patient presented to the emergency department for evaluation of intermittent right-sided paresthesias, mild headache, and elevated blood pressures as d etailed in [facility]. Labs, imaging, EKG, and all reports were personally reviewed. Presentation is concerning for transient cerebral ischemia. Brain MRI, echocardiogram, and carotid Doppler ultrasounds ordered for a.m. (creatinine is higher compared to baseline thus will hold on CTA of the brain and neck for now). ABCD2 score is 3 (age greater than 60, blood pressure greater than 140/90, duration of symptoms less than 60 minutes). Continue aspirin and simvastatin. Blood pressures have improved since arrival and will be monitored closely. Dosing of her antihypertensives can be adjusted depending on how she trends. Creatinine is higher than her baseline for unclear reasons though BUN to creatinine ratio is greater than 20 and thus could be pre renal however she says she has been eating and drinking as per usual and in fact tells me that she is a big water drinker. She has not had any recent changes to her medications. Bladder scan to rule out urine retention. Renal duplex ultrasound ordered given her history of renal artery aneurysm. Recent hemoglobin A1c was 5.8%. Hold metformin for now as she may need contrast. The rest of her home medications will be reviewed and resumed as appropriate. Findings and treatment plan were discussed with the patient. Questions were solicited and answered to satisfaction. The patient's medical management will be taken over by the hospitalist team in a.m. Quality VTE Prophylaxis VTE prophylaxis: mechanical ordered The patient has been admitted under observation status. Hospitalist MIPS Advance Care Plan I have confirmed that the patient's Advanced Care Plan is present, code status is documented, or surrogate decision maker is listed in patient medical record.: Yes Medication Reconciliation I have utilized all available resources to obtain, update and review the patients current medications (includes all prescriptions, OTC, herbals, cannabis, and nutritional supplements).: Yes
--- NOTE | 2024-11-13 23:43 | ADMGEN ---
This patient, Mirta Reyes, was admitted to Medical Room 246-01. Patient/family oriented to hospital policies and general routines including ID bracelet, bed and alarms, visiting hours, pain management, procedures, bathroom and other care routines, personal items, smoking policy, room service/diet, and visiting hours. Information on how to activate the Rapid Response Team has been discussed. Patient/Family are encouraged to report perceived risks to care and to ask questions if they do not understand what they are told or what they should do.
--- NOTE | 2024-11-13 23:46 | ED_ITS ---
HPI - Neuro Symptoms/Deficit General Chief Complaint: Unspecified Stated Complaint: R arm tingling, imtermittely Time Seen by Provider: 11/13/24 21:22 History of Present Illness HPI Narrative: Patient presents here with intermittent tingling to her right forearm and 1st 3 fingers, denies any recent trauma, this has never happened before, she also felt like she had his hand spasm earlier, she also has noticed some slight numbness/tingling to her right face also which resolved. No history of stroke. Related Data Home Medications ?Medication ?Instructions ?Recorded ?Confirmed ?Last Taken ?Type calcium carbonate (Calcium 600) 600 mg PO DAILY 08/11/23 09/02/24 08/15/24 History acyclovir 400 mg tablet 400 mg PO TID PRN FEVER BLISTERS 08/12/24 09/02/24 08/18/24 History aspirin 81 mg tablet,delayed 81 mg PO HS 08/12/24 09/02/24 08/13/24 History release diclofenac sodium 75 mg 75 mg PO Q12H pain 08/12/24 09/02/24 08/13/24 History tablet,delayed release famotidine 20 mg tablet 20 mg PO Q12H 08/12/24 09/02/24 08/17/24 History simethicone 125 mg capsule (Gas 125 mg PO DAILY 11/13/24 11/13/24 11/13/24 History Relief (simethicone)) simvastatin 40 mg tablet 40 mg PO QPM 11/13/24 11/13/24 11/13/24 History Allergies Allergy/AdvReac Type Severity Reaction Status Date / Time codeine AdvReac Intermediate Itching Verified 11/13/24 20:28 Review of Systems 2 Review of Systems: All systems reviewed & are unremarkable except as noted in HPI and below PMFSH Past Medical History Medical History (Updated 11/13/24 @ 23:50 by Virginia Harrison MD) Deep venous thrombosis Hiatal hernia Renal arterial aneurysm Gastroesophageal reflux disease Esophageal ring Osteoarthritis Hyperlipidemia Hypertension Surgical History Surgical History (Updated 11/13/24 @ 23:20 by Carlota Williasmon PA-C) History of section History of bilateral knee arthroplasty (2023) History of hysteroscopy (08/18/24) with polypectomy and uterine curettings History of conization of cervix age 26 Family History Family History Mother Hypertension Lung cancer Sibling Hypertension brother and sister Uterine cancer sister Father Acute myocardial infarction Grandparent Cerebrovascular accident Maternal grandmother Social History Social History (Updated 11/13/24 @ 23:20 by Carlota Williamson PA-C) Social History: Surrogate medical decision maker: Code status: Full code. Smoking packs per day: 0.75 Smoking cigarettes per day: 15.0 Years smoked: 20 Smoking pack-years: 15.00 Smoking status: Former smoker Tobacco type: cigarettes Second hand tobacco smoke exposure: Yes Smoking end date: 11/29/01 Alcohol intake: current Drinks per week: 7 Substance use: never Substance use type: does not use Do You Feel Safe in your Home?: Yes Lack of Transportation: No Lack of Food: Never True Current Housing: Decline to Answer Concerned About Future Housing: Decline to Answer Difficulty Paying Gas/Electric Bills: Decline to Answer Difficulty Paying for Meds: Decline to Answer Currently Unemployed: Decline to Answer Education: Decline to Answer Difficulty w/ Childcare or Family Care: Decline to Answer Living arrangements: with family Additional living arrangements comments: Occupation/Education: retired Spiritual care concerns: No Agree to blood products: Yes Exam 2 Narrative: EXAMINATION OF ORGAN SYSTEMS/BODY AREAS: Constitutional: Vital signs per nursing GENERAL:[No acute distress, non-toxic appearing.] HEAD: Normal with no signs of head trauma. EYES: EOMI, conjunctiva normal ENT: Hearing grossly intact LUNGS: Nonlabored breathing. HEART: [Regular rate and rhythm] ABD: [Soft], [nontender to palpation] EXT: Normal range of motion SKIN: [No rashes or lesions.] NEURO: [Alert and oriented x 3. 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 Clear speech. Ambulating with normal steady gait. PSYCH: Normal affect Course Vital Signs Vital signs: Vital Signs Temperature 97.7 F 11/13/24 20:25 Pulse Rate 77 11/13/24 20:25 Respiratory Rate 18 11/13/24 20:25 Blood Pressure 179/74 H 11/13/24 20:25 Pulse Oximetry 100 11/13/24 20:25 Oxygen Delivery Room Air 11/13/24 20:25 Temperature 97.7 F 11/13/24 20:25 Pulse Rate 65 11/13/24 23:15 Respiratory Rate 15 11/13/24 23:15 Blood Pressure 141/72 H 11/13/24 23:26 Pulse Oximetry 97 11/13/24 23:15 Oxygen Delivery Room Air 11/13/24 20:25 MDM - Neuro Symptoms/Deficit MDM Narrative Medical decision making narrative: Patient presenting with intermittent right face/forearm/finger tingling, now currently asymptomatic. She does have risk factors including diabetes, hypertension, hyperlipidemia, never had a history of stroke in the past, she is very well-appearing here with normal neurologic exam and no focal neurologic deficits, including normal strength and sensation to both upper extremities. Symptoms do seem more peripheral than not, CT brain obtained however does show possible abnormality, recommended MRI, discussed with neurologist who recommends admission for MRI. Discussed with hospitalist for admission and patient and partner agreeable to this Lab Data 11/13/24 21:27 11/13/24 21:27 Labs: Lab Results 11/13/24 11/13/24 Range/Units 21:24 21:27 WBC 5.7 (4.5-10.0) K/mm3 RBC 4.32 (4.2-5.4) M/mm3 Hgb 12.4 (12.0-15.0) g/dL Hct 38.0 (37.0-47.0) % MCV 88.0 (80-100) fl MCH 28.7 (26-34) pg MCHC 32.6 (32-36) g/dl RDW 12.5 (11.5-14.5) % Plt Count 294 (150-375) k/mm3 MPV 9.3 (7.4-10.4) fl Immature Gran % (Auto) 1.4 H (0-0.5) % Neut % (Auto) 51.3 (45.5-73.1) % Lymph % (Auto) 36.8 (18.3-44.2) % [place] % (Auto) 7.5 (2.6-8.5) % Eos % (Auto) 2.5 (0-4.4) % Baso % (Auto) 0.5 (0.2-1.2) % Lymph # (Auto) 2.10 (0.9-3.2) K/mm3 [place] # (Auto) 0.4 (0.1-0.6) K/mm3 Eos # (Auto) 0.1 (0-0.3) K/mm3 Baso # (Auto) 0.0 (0.0-0.1) K/mm3 Abs Immat Gran (auto) 0.08 H (0.00-0.031) K/mm3 Absolute Neuts (auto) 2.9 (1.3-6.7) K/mm3 Absolute Nucleated RBC 0.000 (0.0-0.012) K/mm3 Nucleated RBC % 0.0 (0.0-0.2) % Sodium 139 (137-145) mmol/L Potassium 4.1 (3.4-5.0) mmol/L Chloride 104 (98-107) mmol/L Carbon Dioxide 23 (22-30) mmol/L Anion Gap 12 (4-12) mmol/L BUN 28 H D (7-17) mg/dL Creatinine 1.06 H (0.7-1.0) mg/dL Estim Creat Clear Calc 44 ml/min Estimated GFR 51 L (59 - ) Glucose 119 H (65-110) mg/dL POC Capillary Glucose 127 H (65-105) mg/dl Calcium 9.6 (8.4-10.2) mg/dL Ionized Calcium An Pending Magnesium 1.9 (1.6-2.3) mg/dL Total Bilirubin 0.3 (0.2-1.3) mg/dL AST 29 (14-36) U/L ALT 26 (6-35) U/L Alkaline Phosphatase 75 (38-126) U/L Total Protein 7.5 (6.3-8.2) g/dL Albumin 4.6 (3.5-5.1) g/dL Discharge Plan Discharge Clinical Impression: Arm paresthesia, right, Facial paresthesia Patient Disposition: Still a Patient Condition: Stable
[2024-11-14] VITALS (13 sets, daily range): BP systolic 107–155; BP diastolic 64–79; PULSE 56–72; RESP 16–18; TEMP 36.5–37.1; O2SAT 97–99
--- NOTE | 2024-11-14 00:45 | ECHO_ITS ---
Patient Info Name: Mirta Reyes Age: 69 years : 1955 Gender: Female Ht: 63 in Wt: 173 lbs BSA: 1.90 m2 HR: 64 bpm BP: 155 / 76 mmHg Heart Rhythm: Sinus Rhythm Technical Quality: Fair Exam Date: 11/14/2024 12:57 PM Patient Status: I Admit Date: 11/13/2024 Exam Type: CA echo doppler w bubble study Complete two-dimensional, color flow and Doppler transthoracic echocardiogram is performed with agitated saline. Staff Referring Physician: Virginia Harrison Marketing Project Lead: Farrah Cooley Attending Provider: Jose Sotomayor Contrast/Agitated Saline Contrast/Ag. Saline: Agitated Saline Amount: 16.00 ml Existing IV Access: Yes IV Access Condition: patent with no signs of infiltration Summary 1. Normal left and right ventricular systolic function. 2. Normal appearing cardiac valves, trivial amount of aortic regurgitation. 3. Sinus rhythm. 4. Agitated saline contrast negative for evidence of shunt. Left Ventricle Left ventricular chamber dimension is normal. Left ventricular systolic function is normal, estimated at 60-65. The left ventricular diastolic function is normal. Right Ventricle Right ventricular chamber dimension is normal. Left Atria Left atrial chamber dimension is normal. Right Atria Right atrial chamber dimension is normal. Atrial Septum Intact interatrial septum visualized by agitated saline imaging. Aortic Valve The aortic valve is normal. There is trace aortic valve regurgitation. Pulmonic Valve The pulmonic valve is not well visualized. Mitral Valve The mitral valve has normal leaflets. Tricuspid Valve The tricuspid valve leaflets are normal. Pericardium/Pleural The pericardium appears normal. Aorta The aortic root size at the sinus of Valsalva is normal. Left Ventricular Outflow Tract Name Value Normal LVOT 2D LVOT Diameter 2.0 cm LVOT Doppler LVOT Peak Velocity 101 cm/s LVOT Peak Gradient 4 mmHg LVOT Mean Gradient 2 mmHg LVOT VTI 23 cm LVOT VTI/AV VTI Ratio 0.7 LVOT Stroke Volume 71 ml LVOT CO 3.9 l/min LVOT CI 2.0 l/min/m2 Pulmonic Valve Name Value Normal RVOT Doppler RVOT Peak Velocity 68 cm/s RVOT Peak Gradient 2 mmHg PV Doppler PV Peak Velocity 91 cm/s PV Peak Gradient 3 mmHg Mitral Valve Name Value Normal MV Diastolic Function MV E Peak Velocity 105 cm/s MV A Peak Velocity 103 cm/s MV E/A 1.0 MV Decel Time (PW) 261 ms MV Annular TDI MV E/e' (Septal) 15.0 MV E/e' (Lateral) 13.7 MV E/e' (Average) 14.3 Tricuspid Valve Name Value Normal TV Regurgitation Doppler TR Peak Velocity 241 cm/s TR Peak Gradient 23 mmHg Estimated PAP/RSVP RA Pressure 10 mmHg <=5 PA Systolic Pressure 33 mmHg <36 RV Systolic Pressure 33 mmHg <36 TV Annular TDI TV Lateral Riya s' Velocity 11.7 cm/s >=9.5 Aorta Name Value Normal Ascending Aorta Ao Root Diameter (MM) 2.9 cm Ao Root Diam Index (MM) 1.5 cm/m2 Aortic Valve Name Value Normal AV Doppler AV Peak Velocity 143 cm/s AV Peak Gradient 8 mmHg AV Mean Gradient 4 mmHg AV VTI 32 cm AV Area (Cont Eq VTI) 2.2 cm2 >=3.0 AV Area (Cont Eq Alber) 2.2 cm2 AV DI (Alber) 0.70 AV Regurgitation 2D LVOT Area 3.1 cm2 Ventricles Name Value Normal LV Dimensions 2D/MM IVS Diastolic Thickness (2D) 1.0 cm 0.6-1.0 LVID Diastole (2D) 4.2 cm 3.8-5.2 LVIW Diastolic Thickness (2D) 0.8 cm 0.6-0.9 LVID Systole (2D) 2.6 cm 2.2-3.5 LVOT Diameter 2.0 cm LV Mass (2D Cubed) 119.90 g 67.00-162.00 LV Mass Index (2D Cubed) 63 g/m2 43-95 Relative Wall Thickness (2D) 0.38 <=0.42 LV Fractional Shortening/Ejection Fraction 2D/MM LV Fractional Shortening (2D) 40 % 27-45 LV EF (2D Teichholz) 70 % LV Diastolic Volume (4C MOD) 47 ml LV EF (4C MOD) 78 % LV Diastolic Volume (2C MOD) 54 ml LV EF (2C MOD) 71 % LV Diastolic Volume (BP MOD) 52 ml 46-106 LV Diastolic Volume Index (BP MOD) 27 ml/m2 29-61 LV Systolic Volume (BP MOD) 14 ml 14-42 LV Systolic Volume Index (BP MOD) 7 ml/m2 8-24 LV EF (BP MOD) 74 % 54-74 LV Diastolic Length (4C) 7.0 cm LV Systolic Length (4C) 5.3 cm LV Stroke Volume (4C MOD) 37 ml Atria Name Value Normal LA Dimensions LA Dimension (MM) 3.9 cm 2.7-3.8 LA Volume (4C A-L) 73 ml LA Volume (BP A-L) 66 ml RA Dimensions RA Area (4C) 14.7 cm2 <=18.0 Report Signatures
[2024-11-14] MEDS: LACTATED RINGERS 500 ML 75 ML IV CONT (01:45)
[2024-11-14 05:25] LABS: Anion Gap 8 mmol/L (4-12); Blood Urea Nitrogen 27 mg/dL (7-17); Calcium 9.2 mg/dL (8.4-10.2); Carbon Dioxide 27 mmol/L (22-30); Chloride 105 mmol/L (98-107); Estimated CRCL calculation 44 ml/min; Estimated Glomerular Filt Rate 51; Glucose 92 mg/dL (65-110); Magnesium 1.9 mg/dL (1.6-2.3); Potassium 4.3 mmol/L (3.4-5.0); Sodium 140 mmol/L (137-145)
--- NOTE | 2024-11-14 07:06 | PC.NURSE ---
Bladder scan completed at 05:00. No retention. Carlota Williamson notified, no new orders.
[2024-11-14] MEDS: FAMOTIDINE 20 MG TABLET PO ×2 (08:42→20:39)
[2024-11-14] MEDS: SIMETHICONE 125 MG CHEW TAB PO (08:42)
[2024-11-14] MEDS: hydroCHLOROthiazide 12.5 MG CAPSULE PO (08:43)
[2024-11-14] MEDS: METOPROLOL SUCCINATE EXT REL 50 MG TABCR PO ×2 (08:43→20:39)
[2024-11-14] MEDS: CALCIUM CARBONATE (OSCAL) 500 MG TABLET PO (08:43)
[2024-11-14] MEDS: LOSARTAN POTASSIUM 50 MG TABLET PO (08:43)
[2024-11-14] MEDS: DICLOFENAC SOD 75 MG TABLET.EC PO ×2 (08:43→17:48)
--- NOTE | 2024-11-14 12:48 | P.CONNEU_ITS ---
Assessment and Plan Assessment and plan (1) Arm paresthesia, right: Code(s): R20.2 - Paresthesia of skin Status: Acute (2) Abnormal brain CT: Code(s): R90.89 - Other abnormal findings on diagnostic imaging of central nervous system Status: Acute (3) Facial paresthesia: Code(s): R20.2 - Paresthesia of skin Status: Acute (4) Meningioma: Code(s): D32.9 - Benign neoplasm of meninges, unspecified Status: Acute Plan In the emergency room mild asymmetry of left cerebral pontine angle was noted hence an MRI of the brain was performed today. I have reviewed the and agree with the finding often meningioma along the petrous portion of the left temporal bone. The size given 11 x 10 x 8 mm. The patient does not have any focal deficit at this time. I would suggest a neuro surgical evaluation for the meningioma. She is scheduled to have a carotid Doppler study and echocardiogram with which I agree. Her renal function was mildly abnormal and hence dehydration is suspected and she is being given IV fluids. With the above symptoms were due to the meningioma or still possibility of cerebrovascular pathology would be a matter of some debate but it is possible the symptoms could result from the meningioma. I look for to hear from the neurosurgeons in this regard also Consult date: 11/14/24 HPI: Mirta Reyes is a 69 year old female ,who presented to the emergency room with symptoms of numbness in the right arm. The symptoms affect her right forearm and the 1st 3 digits. She also had some numbness in the face particular in the right side including her lives she has not had this kind of symptoms in the past. There is no prior history of stroke. She had some feeling of dizziness or imbalance. She has not had any problem with the hearing or ringing in the ears. She did not have any passing out spells or confusional state or fall. She denies any weakness in the left side of the body. She did feel right arm at times weaker. She thought that there was some jerking of the right hand for short while. Review of Systems 2 Review of Systems: All systems reviewed & are unremarkable except as noted in HPI and below PMFSH Past Medical History Medical History (Updated 11/14/24 @ 12:54 by Kaykay Baron MD) Meningioma Deep venous thrombosis small DVT following knee replacement surgery Hiatal hernia Renal arterial aneurysm Gastroesophageal reflux disease Esophageal ring Osteoarthritis Hyperlipidemia Hypertension Surgical History Surgical History History of section History of bilateral knee arthroplasty (2023) History of hysteroscopy (08/18/24) with polypectomy and uterine curettings History of conization of cervix age 26 Family History Family History Mother Hypertension Lung cancer Sibling Hypertension brother and sister Uterine cancer sister Father Acute myocardial infarction Grandparent Cerebrovascular accident Maternal grandmother Social History Social History Social History: Surrogate medical decision maker: Zayra Connolly (daughter) or Esa Reyes (spouse). Code status: Full code. Smoking packs per day: 0.75 Smoking cigarettes per day: 15.0 Years smoked: 20 Smoking pack-years: 15.00 Smoking status: Never smoker Tobacco type: cigarettes Second hand tobacco smoke exposure: Yes Smoking end date: 11/29/01 Alcohol intake: current Drinks per week: 10 Substance use: never Substance use type: does not use Do You Feel Safe in your Home?: Yes Lack of Transportation: No Lack of Food: Never True Current Housing: I Have Housing Concerned About Future Housing: No Difficulty Paying Gas/Electric Bills: No Difficulty Paying for Meds: No Currently Unemployed: No Education: High School Diploma/GED Difficulty w/ Childcare or Family Care: No Living arrangements: with family Additional living arrangements comments: Occupation/Education: retired Spiritual care concerns: No Agree to blood products: Yes Meds Home Medications and Allergies Home Medications ?Medication ?Instructions ?Recorded ?Confirmed ?Type calcium carbonate (Calcium 600) 600 mg PO DAILY 08/11/23 11/13/24 History metoprolol succinate 50 mg 50 mg PO BID #180 tabs 06/08/24 11/13/24 Rx tablet,extended release 24 hr trazodone 50 mg tablet See Rx Instructions .Route 07/25/24 11/13/24 Rx .COMPLEX #90 tabs acyclovir 400 mg tablet 400 mg PO TID PRN FEVER BLISTERS 08/12/24 11/13/24 History aspirin 81 mg tablet,delayed 81 mg PO HS 08/12/24 11/13/24 History release diclofenac sodium 75 mg 75 mg PO Q12H pain 08/12/24 11/13/24 History tablet,delayed release famotidine 20 mg tablet 20 mg PO Q12H 08/12/24 11/13/24 History losartan 50 mg-hydrochlorothiazide See Rx Instructions .Route 10/17/24 11/13/24 Rx 12.5 mg tablet .COMPLEX #90 tabs metformin 500 mg tablet,extended See Rx Instructions .Route 10/17/24 11/13/24 Rx release 24 hr .COMPLEX #90 tabs simethicone 125 mg capsule (Gas 125 mg PO DAILY 11/13/24 11/13/24 History Relief (simethicone)) simvastatin 40 mg tablet 40 mg PO QPM 11/13/24 11/13/24 History Allergies Allergy/AdvReac Type Severity Reaction Status Date / Time codeine AdvReac Intermediate Itching Verified 11/13/24 20:28 Vital Signs Vital Signs - 24 hr 11/13/24 20:25 11/13/24 21:16 11/13/24 21:18 Temperature 97.7 F Pulse Rate 77 80 79 Respiratory Rate 18 14 17 Blood Pressure 179/74 H 132/103 H Pulse Oximetry 100 98 98 Oxygen Delivery Room Air 11/13/24 21:40 11/13/24 21:45 11/13/24 22:00 Temperature Pulse Rate 73 74 73 Respiratory Rate 20 16 Blood Pressure Pulse Oximetry 95 95 95 Oxygen Delivery 11/13/24 22:15 11/13/24 22:30 11/13/24 22:45 Temperature Pulse Rate 75 73 71 Respiratory Rate 14 17 15 Blood Pressure Pulse Oximetry 95 96 95 Oxygen Delivery 11/13/24 23:00 11/13/24 23:15 11/13/24 23:26 Temperature Pulse Rate 74 65 Respiratory Rate 19 15 Blood Pressure 141/72 H Pulse Oximetry 95 97 Oxygen Delivery 11/14/24 00:00 11/14/24 00:49 11/14/24 03:00 Temperature 98.6 F Pulse Rate 65 64 64 Respiratory Rate 16 16 Blood Pressure 155/76 H Pulse Oximetry 99 99 Oxygen Delivery Room Air 11/14/24 04:00 11/14/24 04:26 11/14/24 08:35 Temperature 98.8 F Pulse Rate 64 64 Respiratory Rate 18 Blood Pressure 142/79 H Pulse Oximetry 98 Oxygen Delivery Room Air 11/14/24 08:43 Temperature Pulse Rate 68 Respiratory Rate Blood Pressure Pulse Oximetry Oxygen Delivery Exam 2 Const: General: cooperative, well developed and alert O rientation/consciousness: patient oriented x3 HENMT: Head: atraumatic Mouth: Yes oropharynx normal Eyes: Alignment and Position: position normal Pupils: Equal, round and reactive pupils present EOM: EOMs intact bilaterally Neck: Neck: supple Resp: Effort & Inspection: normal respiratory effort Cardio: Rhythm: regular rhythm Neuro: General: patient oriented x3 Cranial nerves: Yes CN's II-XII intact bilaterally, Yes facial sensation intact/muscles of mastication intact, Yes Equal, round and reactive pupils present, Yes facial symmetry and Yes Midline tongue present Cognition (Neuro): normal cognition Speech: normal speech Motor exam (neuro): 5/5 motor strength present throughout Sensory Exam: n ormal sensation Coordination: [id number] test normal and Normal rapid alternating movements of the distal upper extremity present (Neuro) Other: No involuntary movements were seen. Extrem: General: normal to inspection Psych: Mental Status: mental status grossly normal Affect: normal affect Results Labs 11/13/24 21:27 11/14/24 04:34 Labs: Short CBC 11/13/24 Range/Units 21:27 WBC 5.7 (4.5-10.0) K/mm3 Hgb 12.4 (12.0-15.0) g/dL Hct 38.0 (37.0-47.0) % Plt Count 294 (150-375) k/mm3 [facility] 11/13/24 11/14/24 21:27 04:34 Sodium 139 140 Potassium 4.1 4.3 Chloride 104 105 Carbon Dioxide 23 27 BUN 28 H D 27 H Creatinine 1.06 H 1.07 H Glucose 119 H 92 Calcium 9.6 9.2 Liver Function 11/13/24 Range/Units 21:27 Total Bilirubin 0.3 (0.2-1.3) mg/dL AST 29 (14-36) U/L ALT 26 (6-35) U/L Alkaline Phosphatase 75 (38-126) U/L Albumin 4.6 (3.5-5.1) g/dL EXAMINATION: MR brain/brain stem wo/w con DATE: 11/14/2024 10:53 INDICATION: Right face and hand numbness TECHNIQUE: Magnetic resonance imaging (MRI) of the brain and brainstem was performed without intravenous contrast. Sequences included sagittal and axial T1-weighted SE, axial diffusion-weighted FS SE, axial 3D SWAN, axial T2-weighted FLAIR, and axial T2-weighted FSE. Postcontrast axial and coronal T1-weighted SE was obtained. Apparent diffusion coefficient (ADC) maps were created. COMPARISON: None. FINDINGS: There are no areas of restricted diffusion to suggest acute infarction. No intracranial hemorrhage. There is a 11 x 10 x 8 mm enhancing extra-axial dural based mass along the petrous portion of the left temporal bone which is partially calcified on prior CT and most consistent with a meningioma. No other abnormally enhancing lesions identified. There are a few scattered tiny foci of nonspecific increased T2-weighted signal intensity in the cerebral white matter which is within normal limits for age and likely sequela of chronic small vessel ischemic disease. There are no intraparenchymal signal abnormalities seen on the other pulse sequences. The ventricles are symmetric and normal in size. There are no abnormal extra-axial fluid collections. Flow voids are seen in the cerebral arteries on the T2-weighted sequences consistent with their expected patency. Visualized orbits and soft tissues are unremarkable. IMPRESSION: 1. No acute intracranial process. 2. 11 x 10 x 8 mm meningioma along the petrous portion of the left temporal bone. Reviewed, dictated and finalized at location A.
--- NOTE | 2024-11-14 14:11 | PM.IMPN ---
Progress Note: A&P Assessment and Plan (1) Paresthesia: Code(s): R20.2 - Paresthesia of skin Status: Acute (2) Abnormal brain CT: Code(s): R90.89 - Other abnormal findings on diagnostic imaging of central nervous system Status: Acute (3) Elevated serum creatinine: Code(s): R79.89 - Other specified abnormal findings of blood chemistry Status: Acute (4) Hypertension: Code(s): I10 - Essential (primary) hypertension Status: Acute (5) Hyperlipidemia: Code(s): E78.5 - Hyperlipidemia, unspecified Status: Acute (6) Prediabetes: Code(s): R73.03 - Prediabetes Status: Acute Plan This is a very pleasant 69-year-old female with hypertension and prediabetes who presented to the emergency department via private vehicle for evaluation of right arm tingling. At about 11:00 she was standing at the kitchen counter when she developed sudden onset numbness and tingling in the right hand and arm. It resolved within a short period of time however has reoccurred intermittently, at times affecting only a couple of fingers on the right hand or the right side of the lower face or the right lower lip. Additionally she seemed to be lacking some coordination with the right hand and says that she had difficulties controlling the arm. Example includes difficulties tucking her hair behind her ear. She also has a mild headache and states that her blood pressures have been running high, in the 170s systolic. She denies vertigo, visual changes, facial droop, troubles speaking and swallowing, focal weakness, palpitations, and racing heart. She denies neck or upper extremity pain. Currently she is without symptoms. In the ED: Blood pressure was 179/74 on arrival. She is in a sinus rhythm with no concerning findings on EKG. Labs were significant for a BUN and creatinine of 28 and 1.06 respectively and a glucose of 119. Head CT showed no acute intracranial hemorrhage but did note asymmetry of the left cerebellopontine angle. She is being admitted in this setting for close monitoring, further workup, and neurology consultation. 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 These symptoms could be related to this. Will consult Neurosurgery. Neurology already on board. Negative for stroke. For possible TIA workup with echocardiogram and carotid Doppler in process. History of DVT following knee replacement surgery Hiatal hernia Renal arterial aneurysm GERD Esophageal ring Hypertension Hyperlipidemia Pre diabetes DVT prophylaxis SCDs Code status full code Subjective Date/time seen: 11/14/24 14:11 Interval history: All symptoms have completely resolved. She is getting MRI done today. No other complaints Review of Systems Review of Systems: All systems reviewed & are unremarkable except as noted in HPI and below Exam Narrative: General: Well-developed, nontoxic-appearing female supine in bed in no distress HEENT: PERRL, EOMI. Sclera anicteric. Oral mucosa moist. Neck: Supple. No carotid bruits. Respiratory: Lungs are clear to auscultation bilaterally. Cardiovascular: Regular rate and rhythm with S1-S2. Gastrointestinal: Abdomen is soft, nontender, and nondistended with positive bowel sounds. Skin: Warm and dry. No rash or lesions on limited exam. Extremities: No cyanosis, clubbing, or edema. Radial and pedal pulses intact. Neurological: Alert and oriented. Cranial nerves 2-12 are grossly intact. Speech is clear. No facial asymmetry. Normal [id number] and rapid alternating movements. No drift of the upper or lower extremities. Sensation intact at this time. Psychiatric: Pleasant and cooperative with normal mood and affect. Judgment and insight intact. Objective Data Vital Signs Vital Signs: Vital Signs - 24 hr 11/13/24 20:25 11/13/24 21:16 11/13/24 21:18 Temperature 97.7 F Pulse Rate 77 80 79 Respiratory Rate 18 14 17 Blood Pressure 179/74 H 132/103 H Pulse Oximetry 100 98 98 Oxygen Delivery Room Air 11/13/24 21:40 11/13/24 21:45 11/13/24 22:00 Temperature Pulse Rate 73 74 73 Respiratory Rate 20 16 Blood Pressure Pulse Oximetry 95 95 95 Oxygen Delivery 11/13/24 22:15 11/13/24 22:30 11/13/24 22:45 Temperature Pulse Rate 75 73 71 Respiratory Rate 14 17 15 Blood Pressure Pulse Oximetry 95 96 95 Oxygen Delivery 11/13/24 23:00 11/13/24 23:15 11/13/24 23:26 Temperature Pulse Rate 74 65 Respiratory Rate 19 15 Blood Pressure 141/72 H Pulse Oximetry 95 97 Oxygen Delivery 11/14/24 00:00 11/14/24 00:49 11/14/24 03:00 Temperature 98.6 F Pulse Rate 65 64 64 Respiratory Rate 16 16 Blood Pressure 155/76 H Pulse Oximetry 99 99 Oxygen Delivery Room Air 11/14/24 04:00 11/14/24 04:26 11/14/24 08:35 Temperature 98.8 F Pulse Rate 64 64 Respiratory Rate 18 Blood Pressure 142/79 H Pulse Oximetry 98 Oxygen Delivery Room Air 11/14/24 08:43 Temperature Pulse Rate 68 Respiratory Rate Blood Pressure Pulse Oximetry Oxygen Delivery Intake/Output Intake/Output: Intake & Output 11/11/24 11/12/24 11/13/24 11/14/24 23:59 23:59 23:59 23:59 Intake Total 340 Output Total 400 Balance -60 Meds/Results Medications: Active Medications Generic Name Dose Route Start Last Admin Trade Name Freq PRN Reason Stop Dose Admin Acetaminophen 650 mg 11/14/24 00:45 Acetaminophen 325 Mg Tablet PO Q6H PRN Mild Pain (1-3) or Fever Aspirin 81 mg 11/14/24 21:00 Aspirin 81 Mg Enteric Tablet PO HS SUKHDEEP Calcium Carbonate 500 mg 11/14/24 09:00 11/14/24 08:43 Calcium Carbonate (Oscal) 500 Mg Tablet PO 500 mg QAM SUKHDEEP Administration Diclofenac Sodium 75 mg 11/14/24 08:00 11/14/24 08:43 Diclofenac Sod 75 Mg Tablet.Ec PO 75 mg BIDWM SUKHDEEP Administration Famotidine 20 mg 11/14/24 09:00 11/14/24 08:42 Famotidine 20 Mg Tablet PO 20 mg Q12HR SUKHDEEP Administration Hydrochlorothiazide 12.5 mg 11/14/24 09:00 11/14/24 08:43 Hydrochlorothiazide 12.5 Mg Capsule PO 12.5 mg QAM SUKHDEEP Administration Losartan Potassium 50 mg 11/14/24 09:00 11/14/24 08:43 Losartan Potassium 50 Mg Tablet PO 50 mg QAM SUKHDEEP Administration Metoprolol Succinate 50 mg 11/14/24 09:00 11/14/24 08:43 Metoprolol Succinate Ext Rel 50 Mg Tabcr PO 50 mg Q12HR SUKHDEEP Administration Perflutren Lipid Microsphere 0 ml 11/14/24 00:45 Perflutren Lipid Microspheres 1.5 Ml Vial Diluted To 10 Ml Total Volume IV PUSH 11/17/24 00:45 ONCE PRN adequate visualization Protocol Simethicone 125 mg 11/14/24 09:00 11/14/24 08:42 Simethicone 125 Mg Chew Tab PO 125 mg DAILY SUKHDEEP Administration Simvastatin 40 mg 11/14/24 18:00 Simvastatin 20 Mg Tablet PO QPM SUKHDEEP Trazodone HCl 50 mg 11/14/24 00:51 Trazodone Hcl 50 Mg Tablet BY MOUTH HS PRN Insomnia Radiology Results: ITS Impressions Head CT 11/13/24 21:38 Impression: No acute intracranial hemorrhage. Asymmetry of the left cerebellopontine angle which follow-up with contrast enhanced MRI is recommended. Brain MRI 11/14/24 10:59 IMPRESSION: 1. No acute intracranial process. 2. 11 x 10 x 8 mm meningioma along the petrous portion of the left temporal bone. Labs Labs: Laboratory Results - last 24 hr 11/13/24 11/13/24 11/14/24 21:24 21:27 04:34 WBC 5.7 RBC 4.32 Hgb 12.4 Hct 38.0 MCV 88.0 MCH 28.7 MCHC 32.6 RDW 12.5 Plt Count 294 MPV 9.3 Immature Gran % (Auto) 1.4 H Neut % (Auto) 51.3 Lymph % (Auto) 36.8 [place] % (Auto) 7.5 Eos % (Auto) 2.5 Baso % (Auto) 0.5 Lymph # (Auto) 2.10 [place] # (Auto) 0.4 Eos # (Auto) 0.1 Baso # (Auto) 0.0 Abs Immat Gran (auto) 0.08 H Absolute Neuts (auto) 2.9 Absolute Nucleated RBC 0.000 Nucleated RBC % 0.0 Sodium 139 140 Potassium 4.1 4.3 Chloride 104 105 Carbon Dioxide 23 27 Anion Gap 12 8 BUN 28 H D 27 H Creatinine 1.06 H 1.07 H Estim Creat Clear Calc 44 44 Estimated GFR 51 L 51 L Glucose 119 H 92 POC Capillary Glucose 127 H Calcium 9.6 9.2 Magnesium 1.9 1.9 Total Bilirubin 0.3 AST 29 ALT 26 Alkaline Phosphatase 75 Total Protein 7.5 Albumin 4.6 Vitamin B12 196.0 L
[2024-11-14] MEDS: CYANOCOBALAMIN INJ 1,000 MCG/ML VIAL 1000 MCG IM (15:35)
[2024-11-14] MEDS: SIMVASTATIN 20 MG TABLET 40 MG PO (17:49)
[2024-11-14] MEDS: ASPIRIN 81 MG ENTERIC TABLET PO (20:40)
--- NOTE | 2024-11-14 20:40 | WPDNEUROSGCN ---
Assessment and Plan Assessment and plan (1) Meningioma: Code(s): D32.9 - Benign neoplasm of meninges, unspecified Status: Acute Assessment and Plan: Mirta is a very pleasant 69-year-old who presents with a left temporal meningioma. She had a sudden onset of intermittent right hand, forearm, and facial numbness and tingling yesterday. Her symptoms resolved completely last night. She has a normal neurologic exam. Imaging demonstrates partially calcified dural-based lesion adjacent to left temporal bone. We reviewed her exam and imaging findings and discussed the natural history of meningiomas. There is no acute intervention needed at this time. We will have the patient follow-up outpatient with Dr. Wilde in a few weeks. Assuming that her symptoms remain stable, we will likely plan for serial imaging and observation. I discussed with the patient that her symptoms are an unusual presentation for meningioma and that it is possible they are not related to the meningioma at all. I encouraged her to monitor her symptoms and to call the office sooner if they recur. We also had an extensive discussion regarding red flags that would require a call to the office. The patient verbalized understanding and agreement with these plans and has no unanswered questions at this time. I did review the patient's imaging and case with Dr. Hargrove, who is in agreement with these olans. Consult date: 11/14/24 Time Seen: 16:45 Reason for consult: Brain mass HPI: Mirta Reyes is a very pleasant 69 year old female who presented to the ED on November 13 with complaints of intermittent right upper extremity and facial numbness. The symptoms began late yesterday morning without antecedent trauma or event. She noticed numbness and tingling from her elbow through the forearm and predominantly into her thumb, index, and long fingers. She also experienced spasms of the fingers. Soon after, she noticed numbness and tingling of the right side of her face from her mouth up the cheek to the side of her eye. She states that the upper extremity and facial symptoms would last for approximately 30 seconds at a time and continued intermittently until approximately 11;30pm last night. She has not had any of these symptoms today. She denies any involvement of her right lower extremity, facial drooping, weakness of the right upper extremity, vision changes, dizziness, or severe headache. She has never had any symptoms like this before. She does have a past medical history of hypertension and prediabetes. She denies any known neurologic issues. During the workup of her symptoms, she was found to have a left temporal dural-based lesion in the brain, for which Neurosurgery is consulted. [facility] Past Medical History Medical History (Updated 11/14/24 @ 12:54 by Kaykay Baron MD) Meningioma Deep venous thrombosis small DVT following knee replacement surgery Hiatal hernia Renal arterial aneurysm Gastroesophageal reflux disease Esophageal ring Osteoarthritis Hyperlipidemia Hypertension Surgical History Surgical History History of section History of bilateral knee arthroplasty (2023) History of hysteroscopy (08/18/24) with polypectomy and uterine curettings History of conization of cervix age 26 Family History Family History Mother Hypertension Lung cancer Sibling Hypertension brother and sister Uterine cancer sister Father Acute myocardial infarction Grandparent Cerebrovascular accident Maternal grandmother Social History Social History Social History: Surrogate medical decision maker: Zayra Connolly (daughter) or Esa Reyes (spouse). Code status: Full code. Smoking packs per day: 0.75 Smoking cigarettes per day: 15.0 Years smoked: 20 Smoking pack-years: 15.00 Smoking status: Never smoker Tobacco type: cigarettes Second hand tobacco smoke exposure: Yes Smoking end date: 11/29/01 Alcohol intake: current Drinks per week: 10 Substance use: never Substance use type: does not use Do You Feel Safe in your Home?: Yes Lack of Transportation: No Lack of Food: Never True Current Housing: I Have Housing Concerned About Future Housing: No Difficulty Paying Gas/Electric Bills: No Difficulty Paying for Meds: No Currently Unemployed: No Education: High School Diploma/GED Difficulty w/ Childcare or Family Care: No Living arrangements: with family Additional living arrangements comments: Occupation/Education: retired Spiritual care concerns: No Agree to blood products: Yes Meds Home Medications and Allergies Home Medications ?Medication ?Instructions ?Recorded ?Confirmed ?Type calcium carbonate (Calcium 600) 600 mg PO DAILY 08/11/23 11/13/24 History metoprolol succinate 50 mg 50 mg PO BID #180 tabs 06/08/24 11/13/24 Rx tablet,extended release 24 hr trazodone 50 mg tablet See Rx Instructions .Route 07/25/24 11/13/24 Rx .COMPLEX #90 tabs acyclovir 400 mg tablet 400 mg PO TID PRN FEVER BLISTERS 08/12/24 11/13/24 History aspirin 81 mg tablet,delayed 81 mg PO HS 08/12/24 11/13/24 History release diclofenac sodium 75 mg 75 mg PO Q12H pain 08/12/24 11/13/24 History tablet,delayed release famotidine 20 mg tablet 20 mg PO Q12H 08/12/24 11/13/24 History losartan 50 mg-hydrochlorothiazide See Rx Instructions .Route 10/17/24 11/13/24 Rx 12.5 mg tablet .COMPLEX #90 tabs metformin 500 mg tablet,extended See Rx Instructions .Route 10/17/24 11/13/24 Rx release 24 hr .COMPLEX #90 tabs simethicone 125 mg capsule (Gas 125 mg PO DAILY 11/13/24 11/13/24 History Relief (simethicone)) simvastatin 40 mg tablet 40 mg PO QPM 11/13/24 11/13/24 History Allergies Allergy/AdvReac Type Severity Reaction Status Date / Time codeine AdvReac Intermediate Itching Verified 11/13/24 20:28 Vital Signs Vital Signs - 24 hr 11/13/24 21:16 11/13/24 21:18 11/13/24 21:40 Temperature Pulse Rate 80 79 73 Respiratory Rate 14 17 Blood Pressure 132/103 H Pulse Oximetry 98 98 95 Oxygen Delivery 11/13/24 21:45 11/13/24 22:00 11/13/24 22:15 Temperature Pulse Rate 74 73 75 Respiratory Rate 20 16 14 Blood Pressure Pulse Oximetry 95 95 95 Oxygen Delivery 11/13/24 22:30 11/13/24 22:45 11/13/24 23:00 Temperature Pulse Rate 73 71 74 Respiratory Rate 17 15 19 Blood Pressure Pulse Oximetry 96 95 95 Oxygen Delivery 11/13/24 23:15 11/13/24 23:26 11/14/24 00:00 Temperature Pulse Rate 65 65 Respiratory Rate 15 Blood Pressure 141/72 H Pulse Oximetry 97 Oxygen Delivery 11/14/24 00:49 11/14/24 03:00 11/14/24 04:00 Temperature 98.6 F Pulse Rate 64 64 64 Respiratory Rate 16 16 Blood Pressure 155/76 H Pulse Oximetry 99 99 Oxygen Delivery Room Air 11/14/24 04:26 11/14/24 08:00 11/14/24 08:35 Temperature 98.8 F Pulse Rate 64 72 Respiratory Rate 18 Blood Pressure 142/79 H Pulse Oximetry 98 Oxygen Delivery Room Air 11/14/24 08:43 11/14/24 12:00 11/14/24 14:38 Temperature 97.7 F Pulse Rate 68 70 56 L Respiratory Rate 18 Blood Pressure 145/77 H Pulse Oximetry 97 Oxygen Delivery 11/14/24 16:00 Temperature Pulse Rate 60 Respiratory Rate Blood Pressure Pulse Oximetry Oxygen Delivery Exam Narrative: Patient is A&O x4. Well appearing and in no acute distress. Facial movements are symmetric. EOM intact. Able to visually track my finger without nystagmus. PERRLA. Facial sensation intact to light touch. Tongue protrusion midline. Normal cervical range of motion. Shoulder shrug symmetric. No pronator drift. Full upper and lower extremity strength. Sensation to light touch intact throughout upper and lower extremities. Reflexes symmetric. Negative Serena's bilaterally. No ankle clonus. Downgoing Babinski. Gait not tested. Results Labs 11/13/24 21:27 11/14/24 04:34 Labs: Short CBC 11/13/24 Range/Units 21:27 WBC 5.7 (4.5-10.0) K/mm3 Hgb 12.4 (12.0-15.0) g/dL Hct 38.0 (37.0-47.0) % Plt Count 294 (150-375) k/mm3 [facility] 11/13/24 11/14/24 21:27 04:34 Sodium 139 140 Potassium 4.1 4.3 Chloride 104 105 Carbon Dioxide 23 27 BUN 28 H D 27 H Creatinine 1.06 H 1.07 H Glucose 119 H 92 Calcium 9.6 9.2 Liver Function 11/13/24 Range/Units 21:27 Total Bilirubin 0.3 (0.2-1.3) mg/dL AST 29 (14-36) U/L ALT 26 (6-35) U/L Alkaline Phosphatase 75 (38-126) U/L Albumin 4.6 (3.5-5.1) g/dL Imaging My impression: CT of the head obtained yesterday and MRI with and without contrast of the brain obtained today were reviewed. These do demonstrate an 11 x 10 x 8 mm enhancing dural-based mass adjacent to the left temporal bone. The mass is partially calcified on the CT scan. This appears most consistent with a meningioma. There are no other enhancing lesions. No evidence of intracranial hemorrhage or ischemia. No midline shift. There is mild small-vessel ischemic disease, within normal limits for patient's age. No ventriculomegaly.
[2024-11-14] MEDS: traZODone HCL 50 MG TABLET BY MOUTH (20:41)
[2024-11-15] VITALS (8 sets, daily range): BP systolic 128–131; BP diastolic 64–71; PULSE 55–66; RESP 16; TEMP 35.9; O2SAT 95–100
[2024-11-15] MEDS: LOSARTAN POTASSIUM 50 MG TABLET PO (08:13)
[2024-11-15] MEDS: CALCIUM CARBONATE (OSCAL) 500 MG TABLET PO (08:13)
[2024-11-15] MEDS: DICLOFENAC SOD 75 MG TABLET.EC PO (08:13)
[2024-11-15] MEDS: FAMOTIDINE 20 MG TABLET PO (08:13)
[2024-11-15] MEDS: hydroCHLOROthiazide 12.5 MG CAPSULE PO (08:13)
[2024-11-15] MEDS: METOPROLOL SUCCINATE EXT REL 50 MG TABCR PO (08:14)
[2024-11-15] MEDS: SIMETHICONE 125 MG CHEW TAB PO (08:14)
[2024-11-15 12:25] LABS: Ionized Calcium 4.9 mg/dL (4.7-5.5)
--- NOTE | 2024-11-15 13:26 | PM.DS ---
DS: Admitting Diagnosis Discharge Date 11/15/2024 Admitting Diagnosis Paresthesia DS: Discharge Diagnosis Discharge Diagnosis (1) Paresthesia: Code(s): R20.2 - Paresthesia of skin Status: Acute (2) Abnormal brain CT: Code(s): R90.89 - Other abnormal findings on diagnostic imaging of central nervous system Status: Acute (3) Elevated serum creatinine: Code(s): R79.89 - Other specified abnormal findings of blood chemistry Status: Acute (4) Hypertension: Code(s): I10 - Essential (primary) hypertension Status: Acute (5) Hyperlipidemia: Code(s): E78.5 - Hyperlipidemia, unspecified Status: Acute (6) Prediabetes: Code(s): R73.03 - Prediabetes Status: Acute DS: Summary Hospital Course Hospital Course: This is a very pleasant 69-year-old female with hypertension and prediabetes who presented to the emergency department via private vehicle for evaluation of right arm tingling. At about 11:00 she was standing at the kitchen counter when she developed sudden onset numbness and tingling in the right hand and arm. It resolved within a short period of time however has reoccurred intermittently, at times affecting only a couple of fingers on the right hand or the right side of the lower face or the right lower lip. Additionally she seemed to be lacking some coordination with the right hand and says that she had difficulties controlling the arm. Example includes difficulties tucking her hair behind her ear. She also has a mild headache and states that her blood pressures have been running high, in the 170s systolic. She denies vertigo, visual changes, facial droop, troubles speaking and swallowing, focal weakness, palpitations, and racing heart. She denies neck or upper extremity pain. Currently she is without symptoms. In the ED: Blood pressure was 179/74 on arrival. She is in a sinus rhythm with no concerning findings on EKG. Labs were significant for a BUN and creatinine of 28 and 1.06 respectively and a glucose of 119. Head CT showed no acute intracranial hemorrhage but did note asymmetry of the left cerebellopontine angle. She is being admitted in this setting for close monitoring, further workup, and neurology consultation. 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 These symptoms could be related to this. consulted Neurosurgery. fu as op basis. Neurology already on board. Negative for stroke. For possible TIA workup with echocardiogram and carotid Doppler. echo with no pfo or thrombus. carotid doppler with no significant stenosis History of DVT following knee replacement surgery Hiatal hernia Renal arterial aneurysm duplex us negative here GERD low b12 noted on lab. will add on replacement Esophageal ring Hypertension Hyperlipidemia Pre diabetes DVT prophylaxis SCDs Code status full code Time Spent with Patient Time attestation: Total time spent providing and/or coordinating discharge services: 40 minutes Exam Narrative: General: Well-developed, nontoxic-appearing female supine in bed in no distress HEENT: PERRL, EOMI. Sclera anicteric. Oral mucosa moist. Neck: Supple. No carotid bruits. Respiratory: Lungs are clear to auscultation bilaterally. Cardiovascular: Regular rate and rhythm with S1-S2. Gastrointestinal: Abdomen is soft, nontender, and nondistended with positive bowel sounds. Skin: Warm and dry. No rash or lesions on limited exam. Extremities: No cyanosis, clubbing, or edema. Radial and pedal pulses intact. Neurological: Alert and oriented. Cranial nerves 2-12 are grossly intact. Speech is clear. No facial asymmetry. Normal [id number] and rapid alternating movements. No drift of the upper or lower extremities. Sensation intact at this time. Psychiatric: Pleasant and cooperative with normal mood and affect. Judgment and insight intact. DS: Data Data Completed and Pending Completed studies during hospitalization: Exam Type: CA echo doppler w bubble study Complete two-dimensional, color flow and Doppler transthoracic echocardiogram is performed with agitated saline. Staff Referring Physician: Virginia Harrison Transportation Superintendent: Farrah Cooley Attending Provider: Jose Sotomayor Contrast/Agitated Saline Contrast/Ag. Saline: Agitated Saline Amount: 16.00 ml Existing IV Access: Yes IV Access Condition: patent with no signs of infiltration Summary 1. Normal left and right ventricular systolic function. 2. Normal appearing cardiac valves, trivial amount of aortic regurgitation. 3. Sinus rhythm. 4. Agitated saline contrast negative for evidence of shunt. Left Ventricle Left ventricular chamber dimension is normal. Left ventricular systolic function is normal, estimated at 60-65. The left ventricular diastolic function is normal. Right Ventricle Right ventricular chamber dimension is normal. Left Atria Left atrial chamber dimension is normal. Right Atria Right atrial chamber dimension is normal. Atrial Septum Intact interatrial septum visualized by agitated saline imaging. Aortic Valve The aortic valve is normal. There is trace aortic valve regurgitation. Pulmonic Valve The pulmonic valve is not well visualized. Mitral Valve The mitral valve has normal leaflets. Tricuspid Valve The tricuspid valve leaflets are normal. Pericardium/Pleural The pericardium appears normal. Aorta The aortic root size at the sinus of Valsalva is normal. Labs on day of discharge: Labs from last 24 hours 11/13/24 21:27 Ionized Calcium An 4.9 Imaging Radiologist's impression: ITS Impressions Head CT 11/13/24 21:38 Impression: No acute intracranial hemorrhage. Asymmetry of the left cerebellopontine angle which follow-up with contrast enhanced MRI is recommended. Brain MRI 11/14/24 10:59 IMPRESSION: 1. No acute intracranial process. 2. 11 x 10 x 8 mm meningioma along the petrous portion of the left temporal bone. Carotid Doppler Study 11/14/24 16:56 IMPRESSION: 1. No evident plaque or stenosis in the right internal carotid artery. 2. No evident plaque or stenosis in the left internal carotid artery. Arterial/Peripheral Duplex 11/14/24 16:58 IMPRESSION: 1. No Doppler evidence of renal artery stenosis. Discharge Plan Discharge Attending physician on discharge: Jose Sotomayor Consulting providers: Kaykay Baron; Mason Hargrove Discharging Clinician: Jose Sotomayor Anticipated Discharge Date/Time: 11/15/24 13:29 Patient Disposition: Home Activity: as tolerated Diet: heart healthy Patient Instructions: Antibiotic Form Patient Language: Estonian Stand Alone Forms: General Discharge Information Follow-up/Referrals: Camilo,Mark Baron MD [Primary Care Provider] - 1 Week Mason Hargrove MD [Physician] - 3 Weeks Kaykay Baron MD [Physician] - 4 Weeks Discharge Medications: New cyanocobalamin (vitamin B-12) 1,000 mcg capsule 1,000 mcg PO DAILY Qty: 30 0RF Continued calcium carbonate [Calcium 600] 600 mg calcium (1,500 mg) tablet 600 mg PO DAILY simethicone [Gas Relief (simethicone)] 125 mg capsule 125 mg PO DAILY simvastatin 40 mg tablet 40 mg PO QPM acyclovir 400 mg tablet 400 mg PO TID PRN (Reason: FEVER BLISTERS) famotidine 20 mg tablet 20 mg PO Q12H diclofenac sodium 75 mg tablet,delayed release (DR/EC) 75 mg PO Q12H Rx Instructions: TAKE 1 TABLET BY MOUTH DAILY NEEDED FOR PAIN aspirin 81 mg tablet,delayed release (DR/EC) 81 mg PO HS metoprolol succinate 50 mg tablet extended release 24 hr 50 mg PO BID Qty: 180 1RF trazodone 50 mg tablet See Rx Instructions .ROUTE .COMPLEX Qty: 90 1RF Dose Instruction: TAKE 1 TABLET BY MOUTH EVERY DAY AT BEDTIME NEEDED FOR INSOMNIA Rx Instructions: TAKE 1 TABLET BY MOUTH EVERY DAY AT BEDTIME NEEDED FOR INSOMNIA losartan-hydrochlorothiazide 50-12.5 mg tablet See Rx Instructions .ROUTE .COMPLEX Qty: 90 3RF Dose Instruction: TAKE 1 TABLET BY MOUTH EVERY DAY Rx Instructions: TAKE 1 TABLET BY MOUTH EVERY DAY metformin 500 mg tablet extended release 24 hr See Rx Instructions .ROUTE .COMPLEX Qty: 90 3RF Dose Instruction: TAKE 1 TABLET BY MOUTH DAILY Rx Instructions: TAKE 1 TABLET BY MOUTH DAILY Date of admission: 11/13/24 22:45 Primary Care Provider: Camilo,Mark Baron Admitting Provider: Jose Sotomayor Attending physician on admission: Jose Sotomayor Condition: Stable
== END 2024-11-15 14:30 | disposition home or self-care (01) ==
LOC: ANHED 21:54 → ANH2MED 23:16
PROVIDERS: Physician Assistant; Admitting Provider Internal Medicine; Emergency Provider Emergency Medicine; PCP Family Medicine; Visit Provider Internal Medicine
DX: R20.2 Paresthesia of skin (principal); R90.89 Other abnormal findings on diagnostic imaging of central nervous system; R79.89 Other specified abnormal findings of blood chemistry; I10 Essential (primary) hypertension; E78.5 Hyperlipidemia, unspecified; R73.03 Prediabetes; D32.9 Benign neoplasm of meninges, unspecified; K21.9 Gastro-esophageal reflux disease without esophagitis; K22.2 Esophageal obstruction; K44.9 Diaphragmatic hernia without obstruction or gangrene; E53.8 Deficiency of other specified B group vitamins; M19.90 Unspecified osteoarthritis, unspecified site; Z79.82 Long term (current) use of aspirin; Z79.84 Long term (current) use of oral hypoglycemic drugs; Z79.899 Other long term (current) drug therapy; Z86.718 Personal history of other venous thrombosis and embolism; Z96.653 Presence of artificial knee joint, bilateral; Z90.710 Acquired absence of both cervix and uterus
CPT/HCPCS: 36415; 70450; 70553; 80048; 80053; 82330; 82607; 82948; 83735; 85025; 93005; 93306; 93880; 93976; 96360; 96361; 96372; 96375; 99285; A9270; A9577; G0378; J3420; J7120